=== PATIENT | female | born 1935 | race African-American/Black ===

== ENCOUNTER → 2016-10-06 | Day surgery (SDC) | payer OTHER ==
[~2016-10-06] MED LIST: ASPI-630 PO; CARV12.5 PO; HYDROmorphone 2 MG/ML VIAL IV PRN; IV RINGERS,LACTATED 1000ML 1,000 ML IV SCH; LIDOCAINE 1% 1 ML SYRINGE. ID PRN; LISI10TA2 PO; MORPHINE SULFATE 2 MG/ML DISP.SYRIN. IV PRN; ONDANSETRON PF 4 MG/2 ML VIAL. IV PRN; PROCHLORPERAZINE 10 MG/2 ML VIAL. IV PRN; PROPOFOL 20 ML IV ONE; SIMV20TA3 PO; fentaNYL PF VIAL 100 MCG/2 ML VIAL IV PRN
--- NOTE | 2016-10-06 10:58 | PDOC1 ---
HISTORY & PHYSICAL H&P Nell Fay [id number] 1935 09/11/2016 10:15 AM 04/26 [place] [employer] [facility], [facility] OUR PATIENTS COME FIRST [address] [place] [address] Ph. [phone] Patient: Nell Fay Date of : 1935 Date: 09/11/2016 10:15 AM Visit Type: Consult This 81 year old female presents for Constipation and H/o colorectal polyp. History of Present Illness: 1. Constipation Severity level mild. The patient describes it as difficulty passing and hard. Denies aggravating symptoms. Denies relieving factors. Pertinent negatives include abdominal pain, black tarry stools, bleeding with bowel movement, bloating, change in appetite, nausea, vomiting and weight loss. 2. H/o colorectal polyp Prior screening: colonoscopy. Risk Factors: h/o colon polyp. Pertinent negatives include abdominal pain, change in bowel habits, change in stool caliber, constipation, decreased appetite, diarrhea, melena, nausea, rectal bleeding, vomiting, weight gain and weight loss. Additional information: No family history of colon cancer, No family history of Crohn's/colitis, No NSAID/ ASA use and Had last colonoscopy between 5 to 10 yrs ago. Has history of colon polyp. INTAKE COMMENTS: Intake Comments: Nurse Note: the pt is here today to schedule a colonoscopy for a h/o colon polyps, the pt states that it has been awhile since her last one was done. The pt states that she does have ocassional constipation and gas. PROBLEM LIST: Problem Description Onset Date Chronic Notes Hypertension 09/11/2016 Y PAST MEDICAL/SURGICAL HISTORY (Detailed) Disease/disorder Onset Date Management Date Comments Biventricular ICD impant Anemia COPD Glaucoma hyperlipidemia Hypertension Osteoarthritis Medications (Active): Started Medication Directions Instruction Stopped Aspir-81 81 mg tablet,delayed release take 1 tablet by oral route every day Coreg 12.5 mg tablet take 1 tablet by oral route 2 times every day with food Lasix 40 mg tablet take 1 tablet by oral route every day lisinopril 10 mg tablet take 1 tablet by oral route every day simvastatin 20 mg tablet take 1 tablet by oral route every day in the evening Vitamin B-12 1,000 mcg/mL injection solution inject 0.1 milliliter by intramuscular route every month Vitamin D2 50,000 unit capsule take 1 capsule by oral route every day Allergies: Ingredient Reaction Medication Name Comment NO KNOWN ALLERGIES REVIEW OF SYSTEMS System Neg/Pos Details Constitutional Negative Chills, fever, malaise, weight gain and weight loss. ENMT Negative Sore throat. Eyes Negative Double vision. Respiratory Negative Dyspnea and wheezing. Cardio Negative Chest pain and irregular heartbeat/palpitations. GI Positive See HPI. GI Negative Abdominal pain, black tarry stools, bleeding with bowel movement, bloating, change in appetite, change in bowel habits, change in stool caliber, constipation, decreased appetite, diarrhea, melena, nausea, see HPI, rectal bleeding and vomiting. Negative Dysuria and hematuria. Endocrine Negative Cold intolerance and heat intolerance. Psych Negative Anxiety. Integumentary Negative Hives and rash. MS Negative Joint pain. Evan/Lymph Negative Easy bleeding and easy bruising. Allergic/Immuno Negative Food allergies. VITAL SIGNS Time BP mm/Hg Pulse /min Resp /min Temp F Ht ft Ht in Ht cm Wt lb Wt kg BMI kg/ m2 BSA m2 O2 Sat% 10:36 AM 136/84 89 98.1 5.0 5.00 165.10 146.60 66.497 24.40 99 Time Measured by 10:36 AM Marion York PHYSICAL EXAM: Exam Findings Details Constitutional Normal Well developed. Eyes Normal Conjunctiva - Right: Normal, Left: Normal. Sclera - Right: Normal, Left: Normal. Nasopharynx Normal Lips/teeth/gums - Normal. Neck Exam Normal Inspection - Normal. Thyroid gland - Normal. Respiratory Normal Inspection - Normal. Auscultation - Normal. Cardiovascular Normal Regular rate and rhythm. No murmurs, gallops, or rubs. Vascular Normal Pulses - Carotids: Normal, Femoral: Normal, Dorsalis pedis: Normal. Abdomen Normal Inspection - Normal. Anterior palpation - No guarding. No abdominal tenderness. No hepatic enlargement. No splenic enlargement. No hernia. No Ascites. Skin Normal Inspection - Normal. Extremity Normal No edema. Psychiatric Normal Oriented to time, place, person, and situation. Appropriate mood and effect. Assessment/Plan # Detail Type Description 1. Assessment Slow transit constipation (K59.01). Provider Plan High fiber diet, fiber supplement and stool softener if needed. 2. Assessment History of colon polyps (Z86.010). Patient Plan schedule colonoscopy at [facility] Plan Orders Further diagnostic evaluations ordered today include(s) Colonoscopy to be performed today. She is to schedule a follow-up visit with Jerry Alicea MD upon completion of work-up Electronically signed by: Jerry Alicea MD 09/11/2016 10:42 AM Document generated by: Jerry Alicea 09/11/2016 10:42 AM Alonzo Tong MD, Family Practice; Tiburcio Hoffman MD Internal Medicine; Deepika Muñoz MD, Internal Medicine; Cortes Alicea MD Internal Medicine; Jerry Alicea MD, Gastroenterology; Christian San MD, Rheumatology, S. Kemal Douglas, Physical Medicine/Rehab J. Abdi BOBBYN ------ 10/06/16 Patient seen and examined. No change in H&P. JERRY ALICEA MD Oct 06, 2016 10:58
--- NOTE | 2016-10-06 11:43 | PDOC4 ---
GI OP Report - Dr. Louis Date/Time DATE: 10/06/16 TIME: 11:42 Attending Physician Benja Louis MD Referring Physician Indications Personal history of colonic polyps Pre-Op See the Anesthesia note for documentation of the administered medications Procedures Colonoscopy+polypectomy Findings - One 5 mm polyp in the cecum, removed with a cold snare. Resected and retrieved. - The examination was otherwise normal on direct and retroflexion views. Plan - Discharge patient to home. - Patient has a contact number available for emergencies. The signs and symptoms of potential delayed complications were discussed with the patient. Return to normal activities tomorrow. Written discharge instructions were provided to the patient. - Resume regular diet. - Continue present medications. - Await pathology results. - Repeat colonoscopy in 5 years for surveillance based on pathology results. - Return to my office in 2 weeks. BENJA LOUIS MD Oct 06, 2016 11:43
[2016-10-06 12:01] VITALS: BP 121/58
--- NOTE | 2016-10-07 11:37 | PATHOLOGY ---
PATHOLOGY REPORT * * * * * * * * FINAL DIAGNOSIS: Colon biopsy, cecal polyp: - Tubular adenoma. COMMENT: There is no high grade dysplasia or evidence of malignancy. (JPM:mml; d/t: 10/07/2016) REPORT ELECTRONICALLY SIGNED BY: Aron Jiang M.D. DATE/TIME: 10/07/2016 11:37 * * * * * * * * GROSS PATHOLOGY: Received in formalin labeled "Darryl Ibrahim, cecal polyp," is a segment of wyatt soft tissue measuring 0.4 cm in maximum dimension. The specimen is submitted entirely in cassette A1. (JPM; 10/06/16) INITIAL CPT CODE(S): A; 14697 Professional services performed by [facility] [place] [address] Technical services performed by [facility] at [address] [place] [address] [address] [address]. SPECIMEN(S) RECEIVED: A.Cecal polyp CLINICAL HISTORY: History of colon polyps PATIENT: DARRYL IBRAHIM /AGE: 10 1935 (Age: 81) PATIENT #: [id number] ALT CASE #: SPECIMEN COLLECTION DATE: 10/06/2016 SPECIMEN RECEIVED DATE: 10/06/2016 [facility] - [address] [place] [address] - PHONE: [phone] * * * END OF REPORT * * *
== END | disposition home or self-care (01) ==
LOC: ENDOS 09:32
PROVIDERS: ATTEND Internal Medicine Gastroenterology
DX: Z09 Encounter for follow-up examination after completed treatment for conditions other than malignant neoplasm (principal); Z87.19 Personal history of other diseases of the digestive system; D12.0 Benign neoplasm of cecum; J44.9 Chronic obstructive pulmonary disease, unspecified; E78.00 Pure hypercholesterolemia, unspecified; I10 Essential (primary) hypertension; M19.90 Unspecified osteoarthritis, unspecified site; D64.9 Anemia, unspecified; H40.9 Unspecified glaucoma
CPT/HCPCS: 45385; 88305; J2704

== ENCOUNTER → 2016-10-22 | Outpatient (CLI) | payer OTHER ==
[~2016-10-22] MED LIST changes: -HYDROmorphone 2 MG/ML VIAL IV PRN; -IV RINGERS,LACTATED 1000ML 1,000 ML IV SCH; -LIDOCAINE 1% 1 ML SYRINGE. ID PRN; -MORPHINE SULFATE 2 MG/ML DISP.SYRIN. IV PRN; -ONDANSETRON PF 4 MG/2 ML VIAL. IV PRN; -PROCHLORPERAZINE 10 MG/2 ML VIAL. IV PRN; -PROPOFOL 20 ML IV ONE; -fentaNYL PF VIAL 100 MCG/2 ML VIAL IV PRN
--- NOTE | 2016-10-22 13:23 | CARD ---
APPROVED REPORT EXAM: Two-dimensional and M-mode echocardiogram with Doppler and color Doppler. Other Information Quality : GoodHR: 85bpm Rhythm : NSR INDICATION Non ischemic cardiomyopathy 2D DIMENSIONS RVDd3.0 (2.9-3.5cm)Left Atrium(2D)4.4 (1.6-4.0cm) IVSd0.9 (0.7-1.1cm)Aortic Root(2D)2.6 (2.0-3.7cm) LVDd6.7 (3.9-5.9cm)LVOT Diameter2.1 (1.8-2.4cm) PWd1.2 (0.7-1.1cm)LVDs5.8 (2.5-4.0cm) FS (%) 13.5 %SV65.0 ml LVEF(%)28.2 (>50%) Aortic Valve AoV Peak Demetri.101.1cm/sAoV VTI19.0cm AO Peak GR.4.1mmHgLVOT Peak Demetri.77.1cm/s AO Mean GR.2mmHgAVA (VMAX)2.59cm2 Mitral Valve MV E Qgeeogmk32.9cm/sMV E Peak Gr.4mmHg MV DECEL [id number] A Iobvlpex31.6cm/s MV E Mean Gr.2mmHgE/A Ratio1.0 MV A Zevlixfn34hq Pulmonary Valve PV Peak Xobkhhox62.8cm/s Tricuspid Valve TR P. Brsnndra604zh/sTR Peak Gr.55mmHg Pulmonary Vein S1 Wefkoqcy05.7cm/sD2 Hmnqifax97.5cm/s PVa qjylznby86bdxe LEFT VENTRICLE The Left Ventricle is moderately dilated. There is mild concentric left ventricular hypertrophy. Left ventricle systolic function is severely impaired. The Ejection Fraction is 15%. There is moderate hy pokinesis in the basal and mid anteroseptal and anterior hernandez. All other left ventricular hernandez are severely hypokinetic to akinetic. Transmitral Doppler flow pattern is Grade I-abnormal relaxation pat tern. No left ventricle thrombus noted on this study. There is no ventricular septal defect visualize d. There is no left ventricular aneurysm. RIGHT VENTRICLE The right ventricle is mildly dilated. There is normal right ventricular wall thickness. The right ve ntricular systolic function is normal. There is a pacemaker/ICD lead noted. ATRIA The left atrium is severely dilated. The right atrium is mildly dilated. The interatrial septum is in tact with no evidence for an atrial septal defect or patent foramen ovale as noted on 2-D or Doppler imaging. AORTIC VALVE The aortic valve is mildly thickened. The aortic valve is trileaflet. Doppler and Color Flow revealed trace aortic regurgitation. There is no significant aortic valvular stenosis. MITRAL VALVE The mitral valve leaflets are mildly thickened. There is no evidence of mitral valve prolapse. There is no mitral valve stenosis. Doppler and Color Flow revealed mild mitral regurgitation. TRICUSPID VALVE Doppler and Color Flow revealed moderate tricuspid regurgitation. The pulmonary artery systolic press ure is estimated at 58 mmHg. There is moderate pulmonary hypertension. PULMONIC VALVE Doppler and Color Flow revealed mild pulmonic valvular regurgitation. There is no pulmonic valvular s tenosis. GREAT VESSELS The aortic root is normal in size. The ascending aorta is normal in size. The IVC is normal in size a nd collapses >50% with inspiration. PERICARDIAL EFFUSION There is no evidence of significant pericardial effusion. Critical Notification Critical Value: No <Conclusion> Left ventricle systolic function is severely impaired. The Ejection Fraction is 15%. There is moderate hypokinesis in the basal and mid anteroseptal and anterior hernnadez. All other left ve ntricular hernandez are severely hypokinetic to akinetic. Doppler and Color Flow revealed moderate tricuspid regurgitation. The pulmonary artery systolic press ure is estimated at 58 mmHg. There is moderate pulmonary hypertension. There is a pacemaker/ICD lead noted.
== END | disposition home or self-care (01) ==
LOC: ECHO 10-06 09:14
PROVIDERS: ATTEND Internal Medicine Cardiovascular Disease
DX: I08.3 Combined rheumatic disorders of mitral, aortic and tricuspid valves (principal)
CPT/HCPCS: 93306

== ENCOUNTER → 2017-12-22 | Outpatient (CLI) | payer MEDICARE ==
[2016-12-31 15:10] VITALS: BP 121/79
[~2017-12-22] MED LIST changes: +AMIO200T4 PO; +FURO20TA3 PO; +MULT1TAB52 PO; +SACU1TAB PO
--- NOTE | 2017-12-22 13:32 | CARD ---
MR#: [id number] Date of Study: 12/22/2017 Ordering Physician: MARIELY RODRÍGUEZ, Referring Physician: MARIELY RODRÍGUEZ, Tech: Cookie Mancilla APPROVED REPORT EXAM: Two-dimensional and M-mode echocardiogram with Doppler and color Doppler. Other Information Quality : GoodHR: 80bpm INDICATION Congestive Heart Failure Pacemaker RISK FACTORS Hypertension 2D DIMENSIONS RVDd2.6 (2.9-3.5cm)Left Atrium(2D)3.7 (1.6-4.0cm) IVSd1.0 (0.7-1.1cm)Aortic Root(2D)3.0 (2.0-3.7cm) LVDd6.2 (3.9-5.9cm)LVOT Diameter2.1 (1.8-2.4cm) PWd1.4 (0.7-1.1cm)LVDs5.5 (2.5-4.0cm) FS (%) 10.4 %SV43.0 ml LVEF(%)22.3 (>50%) Aortic Valve AoV Peak Demetri.94.4cm/sAoV VTI14.5cm AO Peak GR.3.6mmHgLVOT VTI 5.39cm AO Mean GR.2mmHg Mitral Valve MV E Ghfnqpwq61.2cm/sMV DECEL UBSR395vs MV A Kybnyoaw06.4cm/sE/A Ratio2.4 TDI Lateral E' P. V3.40cm/sMedial E' P. V3.50cm/s E/Lateral E'23.9E/Medial E'23.2 Tricuspid Valve TR P. Fukimrbg061xv/sRAP QBAIUFOL4yfOs TR Peak Gr.14kgYjOZAV75dzIz LEFT VENTRICLE The Left Ventricle is mildly dilated. There is normal left ventricular wall thickness. The left ventr icular systolic function is severely impaired. The ejection fraction is estimated at 15%. Akinetic in ferior and posterior hernandez. Tissue Doppler imaging reveals abnormal left ventricular diastolic dysfun ction. RIGHT VENTRICLE The right ventricle is normal size. There is normal right ventricular wall thickness. The right ventr icular systolic function is normal. Pacer wire noted in right atrium and right ventricle. ATRIA The left atrium is borderline dilated. The right atrium size is normal. AORTIC VALVE The aortic valve is calcified but opens well. Doppler and Color Flow revealed no significant aortic r egurgitation. There is no significant aortic valvular stenosis. MITRAL VALVE The mitral valve is thickened but opens well. Mitral annular calcification is mild. There is no janice l valve stenosis. Doppler and Color-flow revealed mild mitral regurgitation. TRICUSPID VALVE The tricuspid valve is normal in structure and function. Doppler and Color Flow revealed moderate tri cuspid regurgitation. There is no tricuspid valve stenosis. PULMONIC VALVE The pulmonary valve is normal in structure and function. Doppler and Color Flow revealed trace pulmon ic valvular regurgitation. GREAT VESSELS The aortic root is normal in size. The IVC is normal in size and collapses >50% with inspiration. PERICARDIAL EFFUSION There is no evidence of significant pericardial effusion. Critical Notification Critical Value: No <Conclusion> The left ventricular systolic function is severely impaired. Akinetic inferior and posterior hernandez. The ejection fraction is estimated at 15%. Pacer wire noted in right atrium and right ventricle. Mild mitral regurgitation. Moderate tricuspid regurgitation. There is no evidence of significant pericardial effusion. Signed by : Mariely Rodríguez, Electronically Approved : 12/22/2017 13:31:24
== END | disposition home or self-care (01) ==
LOC: ECHO 11:10
PROVIDERS: ATTEND Internal Medicine Cardiovascular Disease
DX: I13.0 Hypertensive heart and chronic kidney disease with heart failure and stage 1 through stage 4 chronic kidney disease, or unspecified chronic kidney disease (principal); N18.9 Chronic kidney disease, unspecified; I50.22 Chronic systolic (congestive) heart failure; I08.1 Rheumatic disorders of both mitral and tricuspid valves; E78.00 Pure hypercholesterolemia, unspecified; J44.9 Chronic obstructive pulmonary disease, unspecified; I25.10 Atherosclerotic heart disease of native coronary artery without angina pectoris; M19.90 Unspecified osteoarthritis, unspecified site; Z90.710 Acquired absence of both cervix and uterus; Z95.0 Presence of cardiac pacemaker
CPT/HCPCS: 93306

== ENCOUNTER 2018-06-29 12:35 | Inpatient (IN) | payer MEDICARE ==
[~2018-06-29] VITALS: Ht 152.4 cm; Wt 67.6 kg
[~2018-06-29 12:35] MED LIST changes: +CARV6.2511 PO; +POTA20TA82 PO; +SACU1TAB7 PO
--- NOTE | 2018-06-29 13:48 | RAD ---
EXAM: AP View of the chest DATE: 06/29/2018 1:26 PM INDICATION: SOA COMPARISON: 02/02/2018, 01/22/2018 FINDINGS: Moderate cardiomegaly. Aorta is tortuous. Cardiac generator pack obscures a portion of the left chest with leads in stable position. Mediastinal and hilar contours are stable. There are now new bilateral perihilar and lung base opacities in a background of mild interstitial prominence with small right pleural effusion. No pneumothorax. Glenohumeral joint degenerative changes are partially profiled. IMPRESSION: Consolation of findings including parenchymal opacities, cardiomegaly and small right pleural effusion may be seen with pulmonary edema. However multifocal pneumonia may have similar appearance. Electronically signed by: Chaitanya Andres MD (06/29/2018 1:45 PM) [facility]
[2018-06-29 13:52] LABS: BILIRUBIN,URINE NEGATIVE (NEG); CLARITY,URINE CLOUDY; COLOR,URINE AMBER; NITRITE,URINE NEGATIVE (NEG); PH,URINE 5.5; PROTEIN,URINE 30 mg/dL (NEG-TRACE)
[2018-06-29 14:10] LABS: BACTERIA,URINE 0 /HPF (0-FEW); HYALINE CASTS, URINE FEW /HPF; RBC,URINE 0 /HPF (0-2); SQUAMOUS EPITHELIAL CELL,UR OCC /LPF; WBC,URINE OCC /HPF (0-4)
[2018-06-29 14:11] LABS: BASO % 1 % (0-3); EOS % 1 % (0-3); HEMATOCRIT 46.7 % (36.0-47.0); HEMOGLOBIN 14.9 g/dL (12.0-15.5); LYMPH # 0.5 x10^3/uL (1.0-4.8); LYMPH % 10 % (24-48); MEAN CORPUSCULAR HEMOGLOBIN 28 pg (25-35); MEAN CORPUSCULAR HGB CONC 32 g/dL (31-37); MEAN CORPUSCULAR VOLUME 88 fL (79-100); MONO # 0.6 x10^3/uL (0.0-1.1); MONO % 11 % (0-9); NEUT # 4.3 x10^3uL (1.8-7.7); NEUT % 78 % (31-73); PLATELET COUNT 113 x10^3/uL (140-400); RED BLOOD COUNT 5.33 x10^6/uL (3.50-5.40); WHITE BLOOD COUNT 5.5 x10^3/uL (4.0-11.0)
[2018-06-29 14:25] LABS: CREATININE 2.2 mg/dL (0.6-1.0); GFR 25.7
[2018-06-29 14:30] LABS: ALBUMIN 3.3 g/dL (3.4-5.0); ALBUMIN/GLOBULIN RATIO 1.1 (1.0-1.7); TOTAL PROTEIN 6.4 g/dL (6.4-8.2)
[2018-06-29 14:37] LABS: CREATINE KINASE 71 U/L (26-192)
--- NOTE | 2018-06-29 15:04 | EKG ---
[facility] [address] [place] [address] Test Date: 2018-06-29 Test Time: 13:20:25 Pat Name: DARRYL IBRAHIM Department: Room: Gender: F Starch Dumper: : 1935 Requested By: ASHIA DURAN Order Number: [id number] Reading MD: Carlton Toussaint MD Measurements Intervals [place] Rate: 91 P: GA: QRS: -114 QRSD: 214 T: 150 QT: 420 QTc: 519 Interpretive Statements V-PACED Electronically Signed On 06-30-2018 11:10:07 FRAME NAILER by Carlton Toussaint MD
--- NOTE | 2018-06-29 15:07 | PHYS DOC ---
Past Medical History Past Medical History: CHF, High Cholesterol, Hypertension, Renal Disease Additional Past Medical Histor: Enlarged heart with low EF Past Surgical History: Pacemaker Alcohol Use: None Drug Use: None Adult General Chief Complaint Chief Complaint: SHORTNESS OF BREATH HPI HPI Patient is a 83 year old female presented ER today for evaluation of trouble breathing, nonproductive cough. Patient has had trouble breathing for several weeks, the last 3 days her symptoms get worse. Patient had productive cough with clear sputum. Patient also complaint of bilateral lower EXTREMITIES swelling. She did complain of right-sided chest pain. She denies any fever. She had exertional dyspnea. Review of Systems Review of Systems Constitutional: Denies fever or chills [] Eyes: Denies change in visual acuity, redness, or eye pain [] HENT: Denies nasal congestion or sore throat [] Respiratory: Positive for cough and shortness of breath [] Cardiovascular: No additional information not addressed in HPI [] GI: Denies abdominal pain, nausea, vomiting, bloody stools or diarrhea [] : Denies dysuria or hematuria [] Musculoskeletal: Denies back pain or joint pain. POSITIVE FOR LEGS SWELLING. Integument: Denies rash or skin lesions [] Neurologic: Denies headache, focal weakness or sensory changes [] Endocrine: Denies polyuria or polydipsia [] All other systems were reviewed and found to be within normal limits, except as documented in this note. Current Medications Current Medications Current Medications Medications (Trade) Dose Ordered Sig/Abimael Start Time Stop Time Status Last Admin Dose Admin Acetaminophen/ Hydrocodone Bitart (Lortab 5/325) 1 tab 1X ONCE 06/29/18 15:15 06/29/18 15:17 DC 06/29/18 15:31 1 TAB Azithromycin (Zithromax) 250 mg STK-MED ONCE 06/29/18 15:25 06/29/18 15:26 DC Ceftriaxone Sodium (Rocephin) 1 gm 1X ONCE 06/29/18 15:15 06/29/18 15:17 DC 06/29/18 15:33 1 GM Allergies Allergies Allergies Coded Allergies Type Severity Reaction Last Updated Verified No Known Drug Allergies 10/06/16 No Physical Exam Physical Exam Constitutional: Well developed, well nourished, no acute distress, non-toxic appearance. [] HENT: Normocephalic, atraumatic, bilateral external ears normal, oropharynx moist, no oral exudates, nose normal. [] Eyes: PERRLA, EOMI, conjunctiva normal, no discharge. [] Neck: Normal range of motion, no tenderness, supple, no stridor. [] Cardiovascular:Heart rate regular rhythm, no murmur [] Lungs & Thorax: crackles at R LUNG BASE, RALES THROUGHOUT. Abdomen: Bowel sounds normal, soft, no tenderness, no masses, no pulsatile masses. [] Skin: Warm, dry, no erythema, no rash. [] Back: No tenderness, no CVA tenderness. [] Extremities: No tenderness, no cyanosis, no clubbing, ROM intact. SEVERE BILATERAL LOWER EXTREMITIES EDEMA, 4 PLUS. Neurologic: Alert and oriented X 3, normal motor function, normal sensory function, no focal deficits noted. [] Psychologic: Affect normal, judgement normal, mood normal. [] Current Patient Data Vital Signs Vital Signs Date Time Temp Pulse Resp B/P (MAP) Pulse Ox O2 Delivery O2 Flow Rate FiO2 06/29/18 15:04 64 24 115/69 (84) 97 Room Air 06/29/18 12:40 97.7 97.7 Lab Values Laboratory Tests Test 06/29/18 13:40 06/29/18 13:50 06/29/18 14:50 Urine Color Lily Urine Clarity Cloudy Urine pH 5.5 Urine Specific [place] 1.015 Urine Protein 30 mg/dL (NEG-TRACE) Urine Glucose (UA) Negative mg/dL (NEG) Urine Ketones (Stick) Negative mg/dL (NEG) Urine Blood Negative (NEG) Urine Nitrite Negative (NEG) Urine Bilirubin Negative (NEG) Urine Urobilinogen Dipstick 1.0 mg/dL (0.2 mg/dL) Urine Leukocyte Esterase Trace (NEG) Urine RBC 0 /HPF (0-2) Urine WBC Occ /HPF (0-4) Urine Squamous Epithelial Cells Occ /LPF Urine Bacteria 0 /HPF (0-FEW) Urine Hyaline Casts Few /HPF White Blood Count 5.5 x10^3/uL (4.0-11.0) Red Blood Count 5.33 x10^6/uL (3.50-5.40) Hemoglobin 14.9 g/dL (12.0-15.5) Hematocrit 46.7 % (36.0-47.0) Mean Corpuscular Volume 88 fL (79-100) Mean Corpuscular Hemoglobin 28 pg (25-35) Mean Corpuscular Hemoglobin Concent 32 g/dL (31-37) Red Cell Distribution Width 17.0 % (11.5-14.5) H Platelet Count 113 x10^3/uL (140-400) L Neutrophils (%) (Auto) 78 % (31-73) H Lymphocytes (%) (Auto) 10 % (24-48) L Monocytes (%) (Auto) 11 % (0-9) H Eosinophils (%) (Auto) 1 % (0-3) Basophils (%) (Auto) 1 % (0-3) Neutrophils # (Auto) 4.3 x10^3uL (1.8-7.7) Lymphocytes # (Auto) 0.5 x10^3/uL (1.0-4.8) L Monocytes # (Auto) 0.6 x10^3/uL (0.0-1.1) Eosinophils # (Auto) 0.0 x10^3/uL (0.0-0.7) Basophils # (Auto) 0.0 x10^3/uL (0.0-0.2) Sodium Level 143 mmol/L (136-145) Potassium Level 4.0 mmol/L (3.5-5.1) Chloride Level 102 mmol/L (98-107) Carbon Dioxide Level 28 mmol/L (21-32) Anion Gap 13 (6-14) Blood Urea Nitrogen 56 mg/dL (7-20) H Creatinine 2.2 mg/dL (0.6-1.0) H Estimated GFR (Cockcroft-Gault) 25.7 BUN/Creatinine Ratio 25 (6-20) H Glucose Level 164 mg/dL (70-99) H Calcium Level 10.0 mg/dL (8.5-10.1) Total Bilirubin 2.0 mg/dL (0.2-1.0) H Aspartate Amino Transferase (AST) 31 U/L (15-37) Alanine Aminotransferase (ALT) 26 U/L (14-59) Alkaline Phosphatase 113 U/L (46-116) Creatine Kinase 71 U/L (26-192) Creatine Kinase MB (Mass) 1.0 ng/mL (0.0-3.6) Creatine Kinase MB Relative Index % (0-4) Troponin I Quantitative 0.184 ng/mL (0.000-0.055) GM-Cta-B-Type Natriuretic Peptide 07031 pg/mL (0-449) H Total Protein 6.4 g/dL (6.4-8.2) Albumin 3.3 g/dL (3.4-5.0) L Albumin/Globulin Ratio 1.1 (1.0-1.7) Lactic Acid Level 1.7 mmol/L (0.4-2.0) Laboratory Tests 06/29/18 13:50 Laboratory Tests 06/29/18 13:50 EKG EKG EKG was read by this physician at 1345, rate of 73, PACED, RBBB Radiology/Procedures Radiology/Procedures [][facility] [address] [place] [address] IMAGING REPORT Signed PATIENT: DARRYL IBRAHIM ACCOUNT: [id number] : 1935 LOCATION: ER AGE: 83 SEX: F EXAM STATUS: REG ER ORD. PHYSICIAN: ASHIA DURAN DO REASON: soa PROCEDURE: PORTABLE CHEST 1V EXAM: AP View of the chest DATE: 06/29/2018 1:26 PM INDICATION: SOA COMPARISON: 02/02/2018, 01/22/2018 FINDINGS: Moderate cardiomegaly. Aorta is tortuous. Cardiac generator pack obscures a portion of the left chest with leads in stable position. Mediastinal and hilar contours are stable. There are now new bilateral perihilar and lung base opacities in a background of mild interstitial prominence with small right pleural effusion. No pneumothorax. Glenohumeral joint degenerative changes are partially profiled. IMPRESSION: Consolation of findings including parenchymal opacities, cardiomegaly and small right pleural effusion may be seen with pulmonary edema. However multifocal pneumonia may have similar appearance. Electronically signed by: Chaitanya Harrison MD (06/29/2018 1:45 PM) [id number] DICTATED and SIGNED BY: CHAITANYA HARRISON MD DATE: 06/29/18 1652 Course & Med Decision Making Course & Med Decision Making Pertinent Labs and Imaging studies reviewed. (See chart for details) [] Dragon Disclaimer Dragon Disclaimer This electronic medical record was generated, in whole or in part, using a voice recognition dictation system. Departure Departure Impression: Primary Impression: Acute pulmonary edema Additional Impressions: CHF (congestive heart failure) CAP (community acquired pneumonia) Disposition: ADMITTED INPATIENT Admitting Physician: Other (DR. HIPOLITO PHILLIPS) Condition: STABLE Referrals: LBAKE RAMIRES MD (PCP) Problem Qualifiers ASHIA DURAN DO Jun 29, 2018 15:07
[2018-06-29] MEDS ORDERED: cefTRIAXone IV Push 1 GM VIAL. IVP ONE (15:15)
[2018-06-29] MEDS ORDERED: AZITHROMYCIN 250 MG TABLET. PO ONE (15:15)
[2018-06-29] MEDS ORDERED: HYDROcodone/APAP 5/325MG 1 TAB TABLET PO ONE (15:15)
[2018-06-29] MEDS ORDERED: AZITHROMYCIN 250 MG TABLET. ONE (15:25)
--- NOTE | 2018-06-29 15:27 | PDOC1 ---
History and Physical Date of Admission Date of Admission DATE: 06/29/18 TIME: 15:21 Identification/Chief Complaint Chief Complaint Shortness of breath Source Source: Chart review, Patient History of Present Illness History of Present Illness Ms. Fay is a 82 old F w/ PMHx HTN, CAD, systolic CHF EF 15% s/p BiV-AICD who came for weight gain 5 pounds and bl leg edema, sob with a worsening cough since 3 days ago. She also notes right sided chest pain on deep inspiration that is new. She has been compliant with diet and fluid intake, has no recent sick contacts and is UTD on vaccinations. No myalgias or URTI symptoms. Cr higher to 2.2 from 1.8 baseline and she has a highly elevated BNP and mildly elevated troponin I as well as bilirubin of 2. On further ROS she has not had a BM yet today, normally takes metamucil daily for this. Past Medical History Cardiovascular: CHF, HTN, Hyperlipidemia, Pulmonary hypertension, Other Pulmonary: COPD GI: No pertinent hx Heme/Onc: Anemia NOS Hepatobiliary: No pertinent hx Psych: No pertinent hx Musculoskeletal: Osteoarthritis Rheumatologic: No pertinent hx Infectious disease: No pertinent hx Renal/: No pertinent hx Endocrine: Hyperparathyroidism, Osteoporosis Past Surgical History Past Surgical History: Pacemaker, Hysterectomy Family History Family History: Cancer, Coronary Artery Disease Social History Smoke: No ALCOHOL: none Drugs: None Current Medications Current Medications Current Medications Ceftriaxone Sodium (Rocephin) 1 gm 1X ONCE IVP ; Start 06/29/18 at 15:15; Stop 06/29/18 at 15:17; Status DC Azithromycin (Zithromax) 500 mg 1X ONCE PO ; Start 06/29/18 at 15:15; Stop at 15:17; Status DC Acetaminophen/ Hydrocodone Bitart (Lortab 5/325) 1 tab 1X ONCE PO ; Start at 15:15; Stop 06/29/18 at 15:17; Status DC Active Scripts Active Amiodarone Hcl 200 Mg Tablet 200 Mg PO DAILY 30 Days Reported Furosemide 20 Mg Tablet 1 Tab PO DAILY Potassium Chloride 20 Meq Tablet.er 20 Meq PO DAILY Carvedilol 6.25 Mg Tablet 1 Tab PO BID Multivitamins (Multivitamin) 1 Each Tablet 1 Each PO Simvastatin 20 Mg Tablet 20 Mg PO HS Aspirin 81 Mg Tab.chew 81 Mg PO Allergies Allergies: Coded Allergies: No Known Drug Allergies (Unverified , 10/06/16) ROS General: YES: Fatigue, Malaise; No: Chills, Night Sweats, Appetite, Other PSYCHOLOGICAL ROS: No: Anxiety, Behavioral Disorder, Concentration difficultie , Decreased libido, Depression, Disorientation, Hallucinations, Hostility, Irritablity, Memory difficulties, Mood Swings, Obsessive thoughts, Physical abuse, Sexual abuse, Sleep disturbances, Suicidal ideation, Other Eyes: No Blurry vision, No Decreased vision, No Double vision, No Dry eyes, No Excessive tearing, No Eye Pain, No Itchy Eyes, No Loss of vision, No Photophobia , No Scotomata, No Uses contacts, No Uses glasses, No Other HEENT: No: Heacaches, Visual Changes, Hearing change, Nasal congestion, Nasal discharge, Oral lesions, Sinus pain, Sore Throat, Epistaxis, Sneezing, Snoring, Tinnitus, Vertigo, Vocal changes, Other ALLERGY AND IMMUNOLOGY: No: Hives, Insect Bite Sensitivity, Itchy/Watery Eyes, Nasal Congestion, Post Nasal Drip, Seasonal Allergies, Other Hematological and Lymphatic: No: Bleeding Problems, Blood Clots, Blood Transfusions, Brusing, Night Sweats, Pallor, Swollen Lymph Nodes, Other ENDOCRINE: No: Breast Changes, Galactorrhea, Hair Pattern Changes, Hot Flashes , Malaise/lethargy, Mood Swings, Palpitations, Polydipsia/polyuria, Skin Changes , Temperature Intolerance, Unexpected Weight Changes, Other Breast: No New/Changing Breast Lumps, No Nipple changes, No Nipple discharge, No Other Respiratory: YES: Cough, Orthopnea, Pleuritic Pain, Shortness of breath, SOB with excertion, Tachypnea; No: Hemoptysis, Sputum Changes, Stridor, Wheezing, Other Cardiovascular: yes Orthopnea, yes Paroxysmal Noc. Dyspnea, yes Edema; No Chest Pain, No Palpitations, No Lt Headedness, No Other Gastrointestinal: Yes Constipation; No Nausea, No Vomiting, No Abdominal Pain, No Diarrhea, No Melena, No Hematochezia, No Other Genitourinary: No Dysuria, No Frequency, No Incontinence, No Hematuria, No Retention, No Discharge, No Urgency, No Pain, No Flank Pain, No Other, No , No , No , No , No , No , No Musculoskeletal: No Gait Disturbance, No Joint Pain, No Joint Stiffness, No Joint Swelling, No Muscle Pain, No Muscular Weakness, No Pain In:, No Swelling In:, No Other Neurological: No Behavorial Changes, No Bowel/Bladder ControlChng, No Confusion , No Dizziness, No Gait Disturbance, No Headaches, No Impaired Coord/balance, No Memory Loss, No Numbness/Tingling, No Seizures, No Speech Problems, No Tremors, No Visual Changes, No Weakness, No Other Skin: No Dry Skin, No Eczema, No Hair Changes, No Lumps, No Mole Changes, No Mottling, No Nail Changes, No Pruritus, No Rash, No Skin Lesion Changes, No Other, No Acne Physical Exam General: Alert, Oriented X3, Cooperative, No acute distress HEENT: Atraumatic, PERRLA, EOMI, Mucous membr. moist/pink Lungs: Other (Right basilar crackles) Heart: S1S2, RRR, no gallops, no murmurs Abdomen: Normal bowel sounds, Soft, No tenderness, No hepatosplenomegaly, No masses Rectal Exam: not examined Extremities: No clubbing, No cyanosis, Normal pulses, No tenderness/swelling, Other (3+ pitting edema bilaterally R>L) Skin: No rashes, No breakdown, No significant lesion Neuro: Normal gait, Normal speech, Strength at 5/5 X4 ext, Normal tone, Sensation intact, Cranial nerves 3-12 NL, Reflexes 2+ Psych/Mental Status: Mental status NL, Mood NL Vitals Vitals Vital Signs Date Time Temp Pulse Resp B/P (MAP) Pulse Ox O2 Delivery O2 Flow Rate FiO2 06/29/18 15:04 64 24 115/69 (84) 97 Room Air 06/29/18 12:40 97.7 97.7 Labs Labs Laboratory Tests Test 06/29/18 13:40 06/29/18 13:50 Urine Color Lily Urine Clarity Cloudy Urine pH 5.5 Urine Specific [place] 1.015 Urine Protein 30 mg/dL (NEG-TRACE) Urine Glucose (UA) Negative mg/dL (NEG) Urine Ketones (Stick) Negative mg/dL (NEG) Urine Blood Negative (NEG) Urine Nitrite Negative (NEG) Urine Bilirubin Negative (NEG) Urine Urobilinogen Dipstick 1.0 mg/dL (0.2 mg/dL) Urine Leukocyte Esterase Trace (NEG) Urine RBC 0 /HPF (0-2) Urine WBC Occ /HPF (0-4) Urine Squamous Epithelial Cells Occ /LPF Urine Bacteria 0 /HPF (0-FEW) Urine Hyaline Casts Few /HPF White Blood Count 5.5 x10^3/uL (4.0-11.0) Red Blood Count 5.33 x10^6/uL (3.50-5.40) Hemoglobin 14.9 g/dL (12.0-15.5) Hematocrit 46.7 % (36.0-47.0) Mean Corpuscular Volume 88 fL (79-100) Mean Corpuscular Hemoglobin 28 pg (25-35) Mean Corpuscular Hemoglobin Concent 32 g/dL (31-37) Red Cell Distribution Width 17.0 % (11.5-14.5) Platelet Count 113 x10^3/uL (140-400) Neutrophils (%) (Auto) 78 % (31-73) Lymphocytes (%) (Auto) 10 % (24-48) Monocytes (%) (Auto) 11 % (0-9) Eosinophils (%) (Auto) 1 % (0-3) Basophils (%) (Auto) 1 % (0-3) Neutrophils # (Auto) 4.3 x10^3uL (1.8-7.7) Lymphocytes # (Auto) 0.5 x10^3/uL (1.0-4.8) Monocytes # (Auto) 0.6 x10^3/uL (0.0-1.1) Eosinophils # (Auto) 0.0 x10^3/uL (0.0-0.7) Basophils # (Auto) 0.0 x10^3/uL (0.0-0.2) Sodium Level 143 mmol/L (136-145) Potassium Level 4.0 mmol/L (3.5-5.1) Chloride Level 102 mmol/L (98-107) Carbon Dioxide Level 28 mmol/L (21-32) Anion Gap 13 (6-14) Blood Urea Nitrogen 56 mg/dL (7-20) Creatinine 2.2 mg/dL (0.6-1.0) Estimated GFR (Cockcroft-Gault) 25.7 BUN/Creatinine Ratio 25 (6-20) Glucose Level 164 mg/dL (70-99) Calcium Level 10.0 mg/dL (8.5-10.1) Total Bilirubin 2.0 mg/dL (0.2-1.0) Aspartate Amino Transf (AST/SGOT) 31 U/L (15-37) Alanine Aminotransferase (ALT/SGPT) 26 U/L (14-59) Alkaline Phosphatase 113 U/L (46-116) Creatine Kinase 71 U/L (26-192) Creatine Kinase MB (Mass) 1.0 ng/mL (0.0-3.6) Creatine Kinase MB Relative Index % (0-4) Troponin I Quantitative 0.184 ng/mL (0.000-0.055) MN-Ynu-R-Type Natriuretic Peptide 37035 pg/mL (0-449) Total Protein 6.4 g/dL (6.4-8.2) Albumin 3.3 g/dL (3.4-5.0) Albumin/Globulin Ratio 1.1 (1.0-1.7) Laboratory Tests Test 06/29/18 13:40 06/29/18 13:50 Urine Color Lily Urine Clarity Cloudy Urine pH 5.5 Urine Specific [place] 1.015 Urine Protein 30 mg/dL (NEG-TRACE) Urine Glucose (UA) Negative mg/dL (NEG) Urine Ketones (Stick) Negative mg/dL (NEG) Urine Blood Negative (NEG) Urine Nitrite Negative (NEG) Urine Bilirubin Negative (NEG) Urine Urobilinogen Dipstick 1.0 mg/dL (0.2 mg/dL) Urine Leukocyte Esterase Trace (NEG) Urine RBC 0 /HPF (0-2) Urine WBC Occ /HPF (0-4) Urine Squamous Epithelial Cells Occ /LPF Urine Bacteria 0 /HPF (0-FEW) Urine Hyaline Casts Few /HPF White Blood Count 5.5 x10^3/uL (4.0-11.0) Red Blood Count 5.33 x10^6/uL (3.50-5.40) Hemoglobin 14.9 g/dL (12.0-15.5) Hematocrit 46.7 % (36.0-47.0) Mean Corpuscular Volume 88 fL (79-100) Mean Corpuscular Hemoglobin 28 pg (25-35) Mean Corpuscular Hemoglobin Concent 32 g/dL (31-37) Red Cell Distribution Width 17.0 % (11.5-14.5) Platelet Count 113 x10^3/uL (140-400) Neutrophils (%) (Auto) 78 % (31-73) Lymphocytes (%) (Auto) 10 % (24-48) Monocytes (%) (Auto) 11 % (0-9) Eosinophils (%) (Auto) 1 % (0-3) Basophils (%) (Auto) 1 % (0-3) Neutrophils # (Auto) 4.3 x10^3uL (1.8-7.7) Lymphocytes # (Auto) 0.5 x10^3/uL (1.0-4.8) Monocytes # (Auto) 0.6 x10^3/uL (0.0-1.1) Eosinophils # (Auto) 0.0 x10^3/uL (0.0-0.7) Basophils # (Auto) 0.0 x10^3/uL (0.0-0.2) Sodium Level 143 mmol/L (136-145) Potassium Level 4.0 mmol/L (3.5-5.1) Chloride Level 102 mmol/L (98-107) Carbon Dioxide Level 28 mmol/L (21-32) Anion Gap 13 (6-14) Blood Urea Nitrogen 56 mg/dL (7-20) Creatinine 2.2 mg/dL (0.6-1.0) Estimated GFR (Cockcroft-Gault) 25.7 BUN/Creatinine Ratio 25 (6-20) Glucose Level 164 mg/dL (70-99) Calcium Level 10.0 mg/dL (8.5-10.1) Total Bilirubin 2.0 mg/dL (0.2-1.0) Aspartate Amino Transf (AST/SGOT) 31 U/L (15-37) Alanine Aminotransferase (ALT/SGPT) 26 U/L (14-59) Alkaline Phosphatase 113 U/L (46-116) Creatine Kinase 71 U/L (26-192) Creatine Kinase MB (Mass) 1.0 ng/mL (0.0-3.6) Creatine Kinase MB Relative Index % (0-4) Troponin I Quantitative 0.184 ng/mL (0.000-0.055) US-Zfa-W-Type Natriuretic Peptide 09852 pg/mL (0-449) Total Protein 6.4 g/dL (6.4-8.2) Albumin 3.3 g/dL (3.4-5.0) Albumin/Globulin Ratio 1.1 (1.0-1.7) Images Images CXR - Consolation of findings including parenchymal opacities, cardiomegaly and small right pleural effusion may be seen with pulmonary edema. However multifocal pneumonia may have similar appearance. VTE Prophylaxis Ordered VTE Prophylaxis Devices: Yes VTE Pharmacological Prophylaxi: Yes Assessment/Plan Assessment/Plan A/P: Acute on chronic systolic and diastolic heart failure in the setting of ischemic cardiomyopathy. EF 15% - likely set off by pneumonia. Check procalcitonin. IV lasix 40mg BID. consult cardiology, sees Dr. Dorman outpatient Right pleural effusion - consult pulm, she may need thoracentesis to tease out CHF vs pneumonia. I feel she has both. Multifocal pneumonia - will cont rocephin + doxycycline. Consult pulmonology History of ventricular tachycardia/ventricular fibrillation status post Bi-V implantable cardioverter-defibrillator. Constipation - will get on bowel regimen. LAM on CKD3, vasomotor and possible component of cardiorenal syndrome in her. Nephrology to see her. She just established outpatient, she thinks with Dr. White copd - only slight wheezes, will give prn nebs. Consult pulm for pleural effusion FEN - Cardiac diet. 2L fluid restriction PPX - heparin BID FULL CODE Inpatient for CHF exacerbation likely set off by a community acquired pneumonia , will be inpatient at least 2 midnights. HIPOLITO PHILLIPS MD Jun 29, 2018 15:27
--- NOTE | 2018-06-29 16:14 | EKG ---
[facility] [address] [place] [id number] Test Date: 2018-06-29 Test Time: 13:45:47 Pat Name: DARRYL IBRAHIM Department: Room: Gender: F Gold Marker: : 1935 Requested By: ASHIA DURAN Order Number: [id number] Reading MD: Carlton Toussaint MD Measurements Intervals [place] Rate: 73 P: 90 DE: 142 QRS: -86 QRSD: 206 T: 5 QT: 468 QTc: 520 Interpretive Statements V-PACED Electronically Signed On 06-30-2018 11:10:47 BILINGUAL INTERPRETER by Carlton Toussaint MD
[2018-06-29] MEDS ORDERED: ONDANSETRON PF 4 MG/2 ML VIAL. IV PRN (16:15)
[2018-06-29] MEDS ORDERED: LACTULOSE 20 GM/30 ML SOLUTION. PO PRN (16:15)
[2018-06-29] MEDS ORDERED: ACETAMINOPHEN 325 MG TABLET. PO PRN (16:15)
[2018-06-29] MEDS ORDERED: CYANOCOBALAMIN (VITAMIN B-12) 1,000 MCG/ML VIAL IM ONE (16:45)
[2018-06-29] MEDS: CARVEDILOL 6.25 MG TABLET. PO SCH (17:00)
[2018-06-29 19:00] VITALS: BP 97/60
[2018-06-29] MEDS: SENNOSIDES/DOCUSATE 8.6/50MG TABLET. PO SCH (21:00)
[2018-06-29] MEDS: PSYLLIUM HUSK (SUGAR FREE) 1 PKT PACKET PO SCH (21:00)
[2018-06-29 21:47] LABS: PLT ESTIMATE DECREASED (ADEQUATE)
[2018-06-29 21:48] LABS: BIZZARE CELLS OCC; OVALOCYTES OCC; SCHISTOCYTES OCC
[2018-06-29] MEDS: FUROSEMIDE 40 MG/4 ML VIAL. IVP SCH (22:06)
[2018-06-29] MEDS: SIMVASTATIN 20 MG TABLET PO SCH (22:06)
[2018-06-29] MEDS: DOXYCYCLINE HYCLATE 100 MG in IV DEXTROSE 5% 100ML 100 ML IV SCH (22:07)
[2018-06-29] MEDS: HEPARIN for SUB-Q USE 5,000 UNIT/ML VIAL. SQ SCH (22:13)
[2018-06-29 22:40] VITALS: BP 118/69
[2018-06-30 02:53] VITALS: BP 117/60
[2018-06-30 07:00] VITALS: BP 108/63
[2018-06-30] MEDS: ASPIRIN CHEWABLE 81 MG TABLET. PO SCH (08:55)
[2018-06-30] MEDS: AMIODARONE HCL 200 MG TABLET. PO SCH (08:55)
[2018-06-30] MEDS: SENNOSIDES/DOCUSATE 8.6/50MG TABLET. PO SCH ×2 (08:55→21:13)
[2018-06-30] MEDS: POLYETHYLENE GLYCOL 3350 17 GM PACKET. PO SCH (08:56)
[2018-06-30] MEDS: CARVEDILOL 6.25 MG TABLET. PO SCH ×2 (08:56→17:00)
[2018-06-30] MEDS: DOXYCYCLINE HYCLATE 100 MG in IV DEXTROSE 5% 100ML 100 ML IV SCH (08:56)
[2018-06-30] MEDS: FUROSEMIDE 40 MG/4 ML VIAL. IVP SCH ×2 (08:57→15:37)
[2018-06-30] MEDS: PSYLLIUM HUSK (SUGAR FREE) 1 PKT PACKET PO SCH (09:00)
[2018-06-30] MEDS: HEPARIN for SUB-Q USE 5,000 UNIT/ML VIAL. SQ SCH ×2 (09:08→21:17)
[2018-06-30 10:30] LABS: CALCIUM 9.9 mg/dL (8.5-10.1); CREATININE 1.9 mg/dL (0.6-1.0); GFR 30.5; POTASSIUM 3.5 mmol/L (3.5-5.1)
[2018-06-30 10:37] LABS: BASO % 1 % (0-3); EOS # 0.1 x10^3/uL (0.0-0.7); EOS % 1 % (0-3); HEMATOCRIT 45.4 % (36.0-47.0); HEMOGLOBIN 14.5 g/dL (12.0-15.5); LYMPH # 0.6 x10^3/uL (1.0-4.8); LYMPH % 11 % (24-48); MEAN CORPUSCULAR HEMOGLOBIN 28 pg (25-35); MEAN CORPUSCULAR HGB CONC 32 g/dL (31-37); MEAN CORPUSCULAR VOLUME 87 fL (79-100); MONO # 0.5 x10^3/uL (0.0-1.1); MONO % 10 % (0-9); NEUT # 4.1 x10^3uL (1.8-7.7); NEUT % 77 % (31-73); PLATELET COUNT 122 x10^3/uL (140-400); RED CELL DISTRIBUTION WIDTH 16.6 % (11.5-14.5); WHITE BLOOD COUNT 5.3 x10^3/uL (4.0-11.0)
[2018-06-30 11:00] VITALS: BP 99/60
--- NOTE | 2018-06-30 13:34 | PDOC2 ---
ALEXANDRA JONES GARMENT TURNER 06/30/18 1334: CARDIAC CONSULT DATE OF CONSULT Date of Consult DATE: 06/30/18 TIME: 13:28 REASON FOR CONSULT Reason for Consult: CHF REFERRING PHYSICIAN Referring Physician: Alethea SOURCE Source: Chart review, Patient HISTORY OF PRESENT ILLNESS HISTORY OF PRESENT ILLNESS This is a pleasant 83 yo female admitted for complains of SOA. Reports that she felt wiped out Wednesday. Wednesday she felt more SOA more thatn usual and unable to fit her regular shoes. she then saw her PCP yesterday and noted that she is fluid overloaded. Pt has not been having good sleep lately and her appetite has decreased. she does live alone and has been complaint with her medications. Verbalized that her wt has not changed much. she takes 1 tab of lasix a day. Denies any chest pain or significant palpitations. No recent fever , chills, nausea or vomiting. PAST MEDICAL HISTORY Cardiovascular: CHF, HTN, Other (NICM EF 20%, LBBB, Left SCV thrombosis, varicosities, SVTs; dilated CM) Pulmonary: Asthma, Other (pulmonary HTN) GI: Other (colon polyp) Heme/Onc: Anemia NOS Musculoskeletal: Osteoarthritis Rheumatologic: No pertinent hx ENT: No pertinent hx, Other (glaucoma) Endocrine: Osteoporosis PAST SURGICAL HISTORY Past Surgical History: Pacemaker (BiV ICD ([employer])), Hysterectomy, Other ( lumpectomy) FAMILY HISTORY Family History: Coronary Artery Disease SOCIAL HISTORY Smoke: No ALCOHOL: none Drugs: None Lives: with Family CURRENT MEDICATIONS CURRENT MEDICATIONS Current Medications Medications (Trade) Dose Ordered Sig/Abimael Route PRN Reason Start Time Stop Time Status Last Admin Dose Admin Ceftriaxone Sodium (Rocephin) 1 gm 1X ONCE IVP 06/29/18 15:15 06/29/18 15:17 DC 06/29/18 15:33 Azithromycin (Zithromax) 500 mg 1X ONCE PO 06/29/18 15:15 06/29/18 15:17 DC 06/29/18 15:30 Acetaminophen/ Hydrocodone Bitart (Lortab 5/325) 1 tab 1X ONCE PO 06/29/18 15:15 06/29/18 15:17 DC 06/29/18 15:31 Amiodarone HCl (Cordarone) 200 mg DAILY PO 06/30/18 09:00 06/30/18 08:55 Aspirin (Children'S Aspirin) 81 mg DAILY PO 06/30/18 09:00 06/30/18 08:55 Carvedilol (Coreg) 6.25 mg BIDWMEALS PO 06/29/18 17:00 06/30/18 08:56 Simvastatin (Zocor) 20 mg HS PO 06/29/18 21:00 06/29/18 22:06 Senna/Docusate Sodium (Senna Plus) 1 tab BID PO 06/29/18 21:00 06/30/18 08:55 Heparin Sodium (Porcine) (Heparin Sodium) 5,000 unit Q12HR SQ 06/29/18 21:00 06/30/18 09:08 Furosemide (Lasix) 40 mg BID92 IVP 06/29/18 17:00 06/30/18 08:57 Doxycycline Hyclate 100 mg/ Dextrose 100 ml @ 50 mls/hr BID IV 06/29/18 17:00 06/30/18 08:56 Polyethylene Glycol (miraLAX PACKET) 17 gm DAILY PO 06/30/18 09:00 06/30/18 08:56 Cyanocobalamin (Vitamin B-12) 1,000 mcg 1X ONCE IM 06/29/18 16:45 06/29/18 16:46 DC 06/30/18 00:25 ALLERGIES ALLERGIES: Coded Allergies: No Known Drug Allergies (Unverified , 10/06/16) ROS Review of System 14 point ROS evaluated with pertinent positives noted per HPI PHYSICAL EXAM General: Alert, Oriented X3, Cooperative, No acute distress HEENT: Atraumatic, Mucous membr. moist/pink Lungs: Other (diminished) Heart: Regular rate, Other (3/6 systolic murmur to LLS border) Abdomen: Soft, No tenderness Extremities: No cyanosis, Other (3+ bilateral LE pitting edema) Skin: No breakdown, No significant lesion Neuro: Normal speech, Sensation intact Psych/Mental Status: Mental status NL, Mood NL MUSCULOSKELETAL: Osteoarthritic changes both hands VITALS VITALS Vital Signs Date Time Temp Pulse Resp B/P (MAP) Pulse Ox O2 Delivery O2 Flow Rate FiO2 06/30/18 11:00 97.4 67 17 99/60 (73) 98 Room Air 97.4 LABS Lab: Laboratory Tests Test 06/29/18 13:40 06/29/18 13:50 06/29/18 14:50 06/30/18 09:48 Urine Color Lily Urine Clarity Cloudy Urine pH 5.5 Urine Specific [place] 1.015 Urine Protein 30 mg/dL (NEG-TRACE) Urine Glucose (UA) Negative mg/dL (NEG) Urine Ketones (Stick) Negative mg/dL (NEG) Urine Blood Negative (NEG) Urine Nitrite Negative (NEG) Urine Bilirubin Negative (NEG) Urine Urobilinogen Dipstick 1.0 mg/dL (0.2 mg/dL) Urine Leukocyte Esterase Trace (NEG) Urine RBC 0 /HPF (0-2) Urine WBC Occ /HPF (0-4) Urine Squamous Epithelial Cells Occ /LPF Urine Bacteria 0 /HPF (0-FEW) Urine Hyaline Casts Few /HPF White Blood Count 5.5 x10^3/uL (4.0-11.0) 5.3 x10^3/uL (4.0-11.0) Red Blood Count 5.33 x10^6/uL (3.50-5.40) 5.20 x10^6/uL (3.50-5.40) Hemoglobin 14.9 g/dL (12.0-15.5) 14.5 g/dL (12.0-15.5) Hematocrit 46.7 % (36.0-47.0) 45.4 % (36.0-47.0) Mean Corpuscular Volume 88 fL (79-100) 87 fL (79-100) Mean Corpuscular Hemoglobin 28 pg (25-35) 28 pg (25-35) Mean Corpuscular Hemoglobin Concent 32 g/dL (31-37) 32 g/dL (31-37) Red Cell Distribution Width 17.0 % (11.5-14.5) 16.6 % (11.5-14.5) Platelet Count 113 x10^3/uL (140-400) 122 x10^3/uL (140-400) Neutrophils (%) (Auto) 78 % (31-73) 77 % (31-73) Lymphocytes (%) (Auto) 10 % (24-48) 11 % (24-48) Monocytes (%) (Auto) 11 % (0-9) 10 % (0-9) Eosinophils (%) (Auto) 1 % (0-3) 1 % (0-3) Basophils (%) (Auto) 1 % (0-3) 1 % (0-3) Neutrophils # (Auto) 4.3 x10^3uL (1.8-7.7) 4.1 x10^3uL (1.8-7.7) Lymphocytes # (Auto) 0.5 x10^3/uL (1.0-4.8) 0.6 x10^3/uL (1.0-4.8) Monocytes # (Auto) 0.6 x10^3/uL (0.0-1.1) 0.5 x10^3/uL (0.0-1.1) Eosinophils # (Auto) 0.0 x10^3/uL (0.0-0.7) 0.1 x10^3/uL (0.0-0.7) Basophils # (Auto) 0.0 x10^3/uL (0.0-0.2) 0.0 x10^3/uL (0.0-0.2) Platelet Estimate Decreased (ADEQUATE) Large Platelets Occ Giant Platelets Present Ovalocytes Occ Schistocytes Occ RBC Morphology Bizarre Forms Occ Sodium Level 143 mmol/L (136-145) 143 mmol/L (136-145) Potassium Level 4.0 mmol/L (3.5-5.1) 3.5 mmol/L (3.5-5.1) Chloride Level 102 mmol/L (98-107) 103 mmol/L (98-107) Carbon Dioxide Level 28 mmol/L (21-32) 28 mmol/L (21-32) Anion Gap 13 (6-14) 12 (6-14) Blood Urea Nitrogen 56 mg/dL (7-20) 51 mg/dL (7-20) Creatinine 2.2 mg/dL (0.6-1.0) 1.9 mg/dL (0.6-1.0) Estimated GFR (Cockcroft-Gault) 25.7 30.5 BUN/Creatinine Ratio 25 (6-20) Glucose Level 164 mg/dL (70-99) 171 mg/dL (70-99) Calcium Level 10.0 mg/dL (8.5-10.1) 9.9 mg/dL (8.5-10.1) Total Bilirubin 2.0 mg/dL (0.2-1.0) Aspartate Amino Transf (AST/SGOT) 31 U/L (15-37) Alanine Aminotransferase (ALT/SGPT) 26 U/L (14-59) Alkaline Phosphatase 113 U/L (46-116) Creatine Kinase 71 U/L (26-192) Creatine Kinase MB (Mass) 1.0 ng/mL (0.0-3.6) Creatine Kinase MB Relative Index % (0-4) Troponin I Quantitative 0.184 ng/mL (0.000-0.055) BD-Jhe-D-Type Natriuretic Peptide 60380 pg/mL (0-449) Total Protein 6.4 g/dL (6.4-8.2) Albumin 3.3 g/dL (3.4-5.0) Albumin/Globulin Ratio 1.1 (1.0-1.7) Lactic Acid Level 1.7 mmol/L (0.4-2.0) ECHOCARDIOGRAM ECHOCARDIOGRAM <Conclusion> The left ventricular systolic function is severely impaired. Akinetic inferior and posterior hernandez. The ejection fraction is estimated at 15%. Pacer wire noted in right atrium and right ventricle. Mild mitral regurgitation. Moderate tricuspid regurgitation. There is no evidence of significant pericardial effusion. DATE: 12/22/17 1331 STRESS TEST STRESS TEST Conclusion 1. Non-diagnostic EKG due to pacing. 2. Fixed inferolateral defect, likely artifact but no active ischemia noted. 3. Severe LV dysfunction. EF 24% 4. Moderate to high risk study for future CV events due to low EF. DATE: 12/30/16 1127 ASSESSMENT/PLAN ASSESSMENT/PLAN 1. Acute on chronic systolic and diastolic heart failur: possibly from inadequate diuretic with severe CM. SOA better 2. LAM on CKD: suspect stage 3 3. elevated troponin: peaked at 0.18, type 2 demand mediated, due to above. 4. NICM/ICM 5. 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). 7. HTN: controlled Recommendations 1. Continue with lasix therapy and moving forward will need BID PO dosing 2. TTE today. Will interrogate device and note any contributing arrhythmias and [place] 3. Continue with secondary prevention 4. Continue amiodarone, ASA, coreg. Unable to place on ACEi or entresto currently due to renal insufficeincy but will consider as an outpt. MARIELY RODRÍGUEZ MD 06/30/182044: CARDIAC CONSULT ASSESSMENT/PLAN ASSESSMENT/PLAN Patient seen and examined. Agree with SUPERVISOR JOINERS's assessment and plan. Continue diuresis for acute on chronic systolic HF Slight trop elevation probably demand ischemia 2D echo showed EF 10-15% We will have her device interrogated Continue current medical regimen Thank you for your consultation ALEXANDRA JONES APRN Jun 30, 2018 13:34 MARIELY RODRÍGUEZ MD Jun 30, 2018 20:45
[2018-06-30] MEDS ORDERED: POTASSIUM CHLORIDE 20 MEQ TABLET.ER. PO ONE (14:00)
--- NOTE | 2018-06-30 14:44 | PDOC2 ---
CONSULT Date of Consult Date of Consult DATE: 06/30/18 TIME: 14:37 Reason for Consult Reason for Consult: Elevated Cr Source Source: Chart review, Patient History of Present Illness Reason for Visit: Pt is a 82 old AAF w/ PMHx HTN, CAD, systolic CHF EF 15% s/p BiV-AICD who came for weight gain 5 pounds and bl leg edema, sob with a worsening cough since 3 days ago. She also notes right sided chest pain on deep inspiration that is new. She has been compliant with diet and fluid intake, has no recent sick contacts No myalgias or URTI symptoms. She denies any urinary complaints. Denies NSAID's. Sees Dr. Good Steiner, last appt approx 1 month back as per patient Past Medical History Cardiovascular: CHF, HTN, Other (NICM EF 20%, LBBB, Left SCV thrombosis, varicosities, SVTs; dilated CM) Pulmonary: Asthma, Other (pulmonary HTN) GI: Other (colon polyp) Heme/Onc: Anemia NOS Hepatobiliary: No pertinent hx Psych: No pertinent hx Musculoskeletal: Osteoarthritis Rheumatologic: No pertinent hx Infectious disease: No pertinent hx ENT: No pertinent hx, Other (glaucoma) Renal/: No pertinent hx Endocrine: Osteoporosis Past Surgical History Past Surgical History: Pacemaker (BiV ICD ([employer])), Hysterectomy, Other ( lumpectomy) Family History Family History: Coronary Artery Disease Social History No ALCOHOL: none Drugs: None Lives: with Family Current Problem List Problem List Problems Medical Problems: (1) Acute pulmonary edema Status: Acute (2) CAP (community acquired pneumonia) Status: Acute (3) CHF (congestive heart failure) Status: Acute Current Medications Current Medications Current Medications Ceftriaxone Sodium (Rocephin) 1 gm 1X ONCE IVP Last administered on 06/29/18at 15:33; Start 06/29/18 at 15:15; Stop 06/29/18 at 15:17; Status DC Azithromycin (Zithromax) 500 mg 1X ONCE PO Last administered on 06/29/18at 15:30 ; Start 06/29/18 at 15:15; Stop 06/29/18 at 15:17; Status DC Acetaminophen/ Hydrocodone Bitart (Lortab 5/325) 1 tab 1X ONCE PO Last administered on 06/29/18at 15:31; Start 06/29/18 at 15:15; Stop 06/29/18 at 15:17; Status DC Azithromycin (Zithromax) 250 mg STK-MED ONCE .ROUTE ; Start 06/29/18 at 15:25; Stop 06/29/18 at 15:26; Status DC Amiodarone HCl (Cordarone) 200 mg DAILY PO Last administered on 06/30/18 08:55 ; Start 06/30/18 at 09:00 Aspirin (Children'S Aspirin) 81 mg DAILY PO Last administered on 06/30/18 08:55 ; Start 06/30/18 at 09:00 Carvedilol (Coreg) 6.25 mg BIDWMEALS PO Last administered on 06/30/18 08:56; Start 06/29/18 at 17:00 Simvastatin (Zocor) 20 mg HS PO Last administered on 06/29/18 22:06; Start 06/29 at 21:00 Ondansetron HCl (Zofran) 4 mg PRN Q6HRS PRN IV NAUSEA/VOMITING; Start 06/29/18 at 16:15 Acetaminophen (Tylenol) 650 mg PRN Q6HRS PRN PO Headaches, Temp > 101.5F; Start 06/29/18 at 16:15 Senna/Docusate Sodium (Senna Plus) 1 tab BID PO Last administered on 06/30/18 08:55; Start 06/29/18 at 21:00 Lactulose (Lactulose) 20 gm PRN Q12HR PRN PO CONSTIPATION; Start 06/29/18 at 16: 15 Heparin Sodium (Porcine) (Heparin Sodium) 5,000 unit Q12HR SQ Last administered on 06/30/18 09:08; Start 06/29/18 at 21:00 Furosemide (Lasix) 40 mg BID92 IVP Last administered on 06/30/18 08:57; Start 06/29/18 at 17:00 Ceftriaxone Sodium (Rocephin) 1 gm Q24H IVP ; Start 06/30/18 at 15:00 Doxycycline Hyclate 100 mg/ Dextrose 100 ml @ 50 mls/hr BID IV Last administered on 06/30/18 08:56; Start 06/29/18 at 17:00 Polyethylene Glycol (miraLAX PACKET) 17 gm DAILY PO Last administered on 3/7/ 19at 08:56; Start 06/30/18 at 09:00 Psyllium Hydrophilic Mucilloid (Metamucil Fiber Packet) 1 pkt DAILY PO ; Start 06/29/18 at 21:00 Cyanocobalamin (Vitamin B-12) 1,000 mcg 1X ONCE IM Last administered on at 00:25; Start 06/29/18 at 16:45; Stop 06/29/18 at 16:46; Status DC Lactobacillus Rhamnosus (Culturelle) 1 cap BID PO ; Start 06/30/18 at 21:00 Potassium Chloride (Klor-Con) 40 meq 1X ONCE PO ; Start 06/30/18 at 14:00; Stop 06/30/18 at 14:01; Status DC Active Scripts Active Amiodarone Hcl 200 Mg Tablet 200 Mg PO DAILY 30 Days Reported Furosemide 20 Mg Tablet 1 Tab PO DAILY Potassium Chloride 20 Meq Tablet.er 20 Meq PO DAILY Carvedilol (Carvedilol) 6.25 Mg Tablet 1 Tab PO BID Multivitamins (Multivitamin) 1 Each Tablet 1 Each PO Simvastatin 20 Mg Tablet 20 Mg PO HS Aspirin 81 Mg Tab.chew 81 Mg PO Allergies Allergies: Coded Allergies: No Known Drug Allergies (Unverified , 10/06/16) ROS Review of System As per HPI Physical Exam Physical Exam General: No acute distress HEENT: OM moist Neck supple Lungs: CTA bilat Heart: S1S2, RRR, Abdomen: Soft, No tenderness, Extremities: 2+ pitting edema bilaterally R>L Skin: No rashes, Neuro: Normal No Simpson Vital Signs Vital Signs Date Time Temp Pulse Resp B/P (MAP) Pulse Ox O2 Delivery O2 Flow Rate FiO2 06/30/18 11:00 97.4 67 17 99/60 (73) 98 Room Air 97.4 Assessment & Plan LAM on CKD - cardirenal Improved, close to baseline E-Lytes and acid base stable Monitor CKD stage [address] Steiner Acute on chronic systolic and diastolic heart failure: with severe CM. Cardiology following NICM/ICM History of ventricular tachycardia/ventricular fibrillation: on amiodarone HTN: controlled Labs Labs Laboratory Tests Test 06/29/18 13:40 06/29/18 13:50 06/29/18 14:50 06/30/18 09:48 Urine Color Lily Urine Clarity Cloudy Urine pH 5.5 Urine Specific [place] 1.015 Urine Protein 30 mg/dL (NEG-TRACE) Urine Glucose (UA) Negative mg/dL (NEG) Urine Ketones (Stick) Negative mg/dL (NEG) Urine Blood Negative (NEG) Urine Nitrite Negative (NEG) Urine Bilirubin Negative (NEG) Urine Urobilinogen Dipstick 1.0 mg/dL (0.2 mg/dL) Urine Leukocyte Esterase Trace (NEG) Urine RBC 0 /HPF (0-2) Urine WBC Occ /HPF (0-4) Urine Squamous Epithelial Cells Occ /LPF Urine Bacteria 0 /HPF (0-FEW) Urine Hyaline Casts Few /HPF White Blood Count 5.5 x10^3/uL (4.0-11.0) 5.3 x10^3/uL (4.0-11.0) Red Blood Count 5.33 x10^6/uL (3.50-5.40) 5.20 x10^6/uL (3.50-5.40) Hemoglobin 14.9 g/dL (12.0-15.5) 14.5 g/dL (12.0-15.5) Hematocrit 46.7 % (36.0-47.0) 45.4 % (36.0-47.0) Mean Corpuscular Volume 88 fL (79-100) 87 fL (79-100) Mean Corpuscular Hemoglobin 28 pg (25-35) 28 pg (25-35) Mean Corpuscular Hemoglobin Concent 32 g/dL (31-37) 32 g/dL (31-37) Red Cell Distribution Width 17.0 % (11.5-14.5) 16.6 % (11.5-14.5) Platelet Count 113 x10^3/uL (140-400) 122 x10^3/uL (140-400) Neutrophils (%) (Auto) 78 % (31-73) 77 % (31-73) Lymphocytes (%) (Auto) 10 % (24-48) 11 % (24-48) Monocytes (%) (Auto) 11 % (0-9) 10 % (0-9) Eosinophils (%) (Auto) 1 % (0-3) 1 % (0-3) Basophils (%) (Auto) 1 % (0-3) 1 % (0-3) Neutrophils # (Auto) 4.3 x10^3uL (1.8-7.7) 4.1 x10^3uL (1.8-7.7) Lymphocytes # (Auto) 0.5 x10^3/uL (1.0-4.8) 0.6 x10^3/uL (1.0-4.8) Monocytes # (Auto) 0.6 x10^3/uL (0.0-1.1) 0.5 x10^3/uL (0.0-1.1) Eosinophils # (Auto) 0.0 x10^3/uL (0.0-0.7) 0.1 x10^3/uL (0.0-0.7) Basophils # (Auto) 0.0 x10^3/uL (0.0-0.2) 0.0 x10^3/uL (0.0-0.2) Platelet Estimate Decreased (ADEQUATE) Large Platelets Occ Giant Platelets Present Ovalocytes Occ Schistocytes Occ RBC Morphology Bizarre Forms Occ Sodium Level 143 mmol/L (136-145) 143 mmol/L (136-145) Potassium Level 4.0 mmol/L (3.5-5.1) 3.5 mmol/L (3.5-5.1) Chloride Level 102 mmol/L (98-107) 103 mmol/L (98-107) Carbon Dioxide Level 28 mmol/L (21-32) 28 mmol/L (21-32) Anion Gap 13 (6-14) 12 (6-14) Blood Urea Nitrogen 56 mg/dL (7-20) 51 mg/dL (7-20) Creatinine 2.2 mg/dL (0.6-1.0) 1.9 mg/dL (0.6-1.0) Estimated GFR (Cockcroft-Gault) 25.7 30.5 BUN/Creatinine Ratio 25 (6-20) Glucose Level 164 mg/dL (70-99) 171 mg/dL (70-99) Calcium Level 10.0 mg/dL (8.5-10.1) 9.9 mg/dL (8.5-10.1) Total Bilirubin 2.0 mg/dL (0.2-1.0) Aspartate Amino Transf (AST/SGOT) 31 U/L (15-37) Alanine Aminotransferase (ALT/SGPT) 26 U/L (14-59) Alkaline Phosphatase 113 U/L (46-116) Creatine Kinase 71 U/L (26-192) Creatine Kinase MB (Mass) 1.0 ng/mL (0.0-3.6) Creatine Kinase MB Relative Index % (0-4) Troponin I Quantitative 0.184 ng/mL (0.000-0.055) VN-Vem-P-Type Natriuretic Peptide 22435 pg/mL (0-449) Total Protein 6.4 g/dL (6.4-8.2) Albumin 3.3 g/dL (3.4-5.0) Albumin/Globulin Ratio 1.1 (1.0-1.7) Lactic Acid Level 1.7 mmol/L (0.4-2.0) Laboratory Tests Test 06/29/18 14:50 06/30/18 09:48 Lactic Acid Level 1.7 mmol/L (0.4-2.0) White Blood Count 5.3 x10^3/uL (4.0-11.0) Red Blood Count 5.20 x10^6/uL (3.50-5.40) Hemoglobin 14.5 g/dL (12.0-15.5) Hematocrit 45.4 % (36.0-47.0) Mean Corpuscular Volume 87 fL (79-100) Mean Corpuscular Hemoglobin 28 pg (25-35) Mean Corpuscular Hemoglobin Concent 32 g/dL (31-37) Red Cell Distribution Width 16.6 % (11.5-14.5) Platelet Count 122 x10^3/uL (140-400) Neutrophils (%) (Auto) 77 % (31-73) Lymphocytes (%) (Auto) 11 % (24-48) Monocytes (%) (Auto) 10 % (0-9) Eosinophils (%) (Auto) 1 % (0-3) Basophils (%) (Auto) 1 % (0-3) Neutrophils # (Auto) 4.1 x10^3uL (1.8-7.7) Lymphocytes # (Auto) 0.6 x10^3/uL (1.0-4.8) Monocytes # (Auto) 0.5 x10^3/uL (0.0-1.1) Eosinophils # (Auto) 0.1 x10^3/uL (0.0-0.7) Basophils # (Auto) 0.0 x10^3/uL (0.0-0.2) Sodium Level 143 mmol/L (136-145) Potassium Level 3.5 mmol/L (3.5-5.1) Chloride Level 103 mmol/L (98-107) Carbon Dioxide Level 28 mmol/L (21-32) Anion Gap 12 (6-14) Blood Urea Nitrogen 51 mg/dL (7-20) Creatinine 1.9 mg/dL (0.6-1.0) Estimated GFR (Cockcroft-Gault) 30.5 Glucose Level 171 mg/dL (70-99) Calcium Level 9.9 mg/dL (8.5-10.1) Review All relevant outside records, renal labs, imaging studies, telemetry/EKG's were reviewed. Images Images CxR-- Consolation of findings including parenchymal opacities, cardiomegaly and small right pleural effusion may be seen with pulmonary edema. However multifocal pneumonia may have similar appearance. ANGELA MONREAL MD Jun 30, 2018 14:44
--- NOTE | 2018-06-30 14:57 | NUR ---
SW following pt for anticipated dc needs. Chart reviewed. [facility]. No DC recommendation/SW needs noted at this time. SW will continue to follow.
[2018-06-30 15:00] VITALS: BP 106/58
[2018-06-30] MEDS ORDERED: cefTRIAXone IV Push 1 GM VIAL. IVP SCH (15:00)
--- NOTE | 2018-06-30 16:57 | PDOC ---
PULMONARY PROGRESS NOTES Vitals Vital Signs Date Time Temp Pulse Resp B/P (MAP) Pulse Ox O2 Delivery O2 Flow Rate FiO2 06/30/18 15:00 98.1 60 17 106/58 (74) 95 Room Air 98.1 Lungs: Clear Labs Laboratory Tests Test 06/29/18 13:40 06/29/18 13:50 06/29/18 14:50 06/30/18 09:48 Urine Color Lily Urine Clarity Cloudy Urine pH 5.5 Urine Specific [place] 1.015 Urine Protein 30 mg/dL (NEG-TRACE) Urine Glucose (UA) Negative mg/dL (NEG) Urine Ketones (Stick) Negative mg/dL (NEG) Urine Blood Negative (NEG) Urine Nitrite Negative (NEG) Urine Bilirubin Negative (NEG) Urine Urobilinogen Dipstick 1.0 mg/dL (0.2 mg/dL) Urine Leukocyte Esterase Trace (NEG) Urine RBC 0 /HPF (0-2) Urine WBC Occ /HPF (0-4) Urine Squamous Epithelial Cells Occ /LPF Urine Bacteria 0 /HPF (0-FEW) Urine Hyaline Casts Few /HPF White Blood Count 5.5 x10^3/uL (4.0-11.0) 5.3 x10^3/uL (4.0-11.0) Red Blood Count 5.33 x10^6/uL (3.50-5.40) 5.20 x10^6/uL (3.50-5.40) Hemoglobin 14.9 g/dL (12.0-15.5) 14.5 g/dL (12.0-15.5) Hematocrit 46.7 % (36.0-47.0) 45.4 % (36.0-47.0) Mean Corpuscular Volume 88 fL (79-100) 87 fL (79-100) Mean Corpuscular Hemoglobin 28 pg (25-35) 28 pg (25-35) Mean Corpuscular Hemoglobin Concent 32 g/dL (31-37) 32 g/dL (31-37) Red Cell Distribution Width 17.0 % (11.5-14.5) 16.6 % (11.5-14.5) Platelet Count 113 x10^3/uL (140-400) 122 x10^3/uL (140-400) Neutrophils (%) (Auto) 78 % (31-73) 77 % (31-73) Lymphocytes (%) (Auto) 10 % (24-48) 11 % (24-48) Monocytes (%) (Auto) 11 % (0-9) 10 % (0-9) Eosinophils (%) (Auto) 1 % (0-3) 1 % (0-3) Basophils (%) (Auto) 1 % (0-3) 1 % (0-3) Neutrophils # (Auto) 4.3 x10^3uL (1.8-7.7) 4.1 x10^3uL (1.8-7.7) Lymphocytes # (Auto) 0.5 x10^3/uL (1.0-4.8) 0.6 x10^3/uL (1.0-4.8) Monocytes # (Auto) 0.6 x10^3/uL (0.0-1.1) 0.5 x10^3/uL (0.0-1.1) Eosinophils # (Auto) 0.0 x10^3/uL (0.0-0.7) 0.1 x10^3/uL (0.0-0.7) Basophils # (Auto) 0.0 x10^3/uL (0.0-0.2) 0.0 x10^3/uL (0.0-0.2) Platelet Estimate Decreased (ADEQUATE) Large Platelets Occ Giant Platelets Present Ovalocytes Occ Schistocytes Occ RBC Morphology Bizarre Forms Occ Sodium Level 143 mmol/L (136-145) 143 mmol/L (136-145) Potassium Level 4.0 mmol/L (3.5-5.1) 3.5 mmol/L (3.5-5.1) Chloride Level 102 mmol/L (98-107) 103 mmol/L (98-107) Carbon Dioxide Level 28 mmol/L (21-32) 28 mmol/L (21-32) Anion Gap 13 (6-14) 12 (6-14) Blood Urea Nitrogen 56 mg/dL (7-20) 51 mg/dL (7-20) Creatinine 2.2 mg/dL (0.6-1.0) 1.9 mg/dL (0.6-1.0) Estimated GFR (Cockcroft-Gault) 25.7 30.5 BUN/Creatinine Ratio 25 (6-20) Glucose Level 164 mg/dL (70-99) 171 mg/dL (70-99) Calcium Level 10.0 mg/dL (8.5-10.1) 9.9 mg/dL (8.5-10.1) Total Bilirubin 2.0 mg/dL (0.2-1.0) Aspartate Amino Transf (AST/SGOT) 31 U/L (15-37) Alanine Aminotransferase (ALT/SGPT) 26 U/L (14-59) Alkaline Phosphatase 113 U/L (46-116) Creatine Kinase 71 U/L (26-192) Creatine Kinase MB (Mass) 1.0 ng/mL (0.0-3.6) Creatine Kinase MB Relative Index % (0-4) Troponin I Quantitative 0.184 ng/mL (0.000-0.055) FH-Qmw-P-Type Natriuretic Peptide 59207 pg/mL (0-449) Total Protein 6.4 g/dL (6.4-8.2) Albumin 3.3 g/dL (3.4-5.0) Albumin/Globulin Ratio 1.1 (1.0-1.7) Lactic Acid Level 1.7 mmol/L (0.4-2.0) Thyroid Stimulating Hormone (TSH) 2.507 uIU/mL (0.358-3.74) Laboratory Tests Test 06/30/18 09:48 White Blood Count 5.3 x10^3/uL (4.0-11.0) Red Blood Count 5.20 x10^6/uL (3.50-5.40) Hemoglobin 14.5 g/dL (12.0-15.5) Hematocrit 45.4 % (36.0-47.0) Mean Corpuscular Volume 87 fL (79-100) Mean Corpuscular Hemoglobin 28 pg (25-35) Mean Corpuscular Hemoglobin Concent 32 g/dL (31-37) Red Cell Distribution Width 16.6 % (11.5-14.5) Platelet Count 122 x10^3/uL (140-400) Neutrophils (%) (Auto) 77 % (31-73) Lymphocytes (%) (Auto) 11 % (24-48) Monocytes (%) (Auto) 10 % (0-9) Eosinophils (%) (Auto) 1 % (0-3) Basophils (%) (Auto) 1 % (0-3) Neutrophils # (Auto) 4.1 x10^3uL (1.8-7.7) Lymphocytes # (Auto) 0.6 x10^3/uL (1.0-4.8) Monocytes # (Auto) 0.5 x10^3/uL (0.0-1.1) Eosinophils # (Auto) 0.1 x10^3/uL (0.0-0.7) Basophils # (Auto) 0.0 x10^3/uL (0.0-0.2) Sodium Level 143 mmol/L (136-145) Potassium Level 3.5 mmol/L (3.5-5.1) Chloride Level 103 mmol/L (98-107) Carbon Dioxide Level 28 mmol/L (21-32) Anion Gap 12 (6-14) Blood Urea Nitrogen 51 mg/dL (7-20) Creatinine 1.9 mg/dL (0.6-1.0) Estimated GFR (Cockcroft-Gault) 30.5 Glucose Level 171 mg/dL (70-99) Calcium Level 9.9 mg/dL (8.5-10.1) Thyroid Stimulating Hormone (TSH) 2.507 uIU/mL (0.358-3.74) Medications Active Scripts Medications Dose Route/Sig Max Daily Dose Days Date Category Furosemide 20 Mg Tablet 1 Tab PO DAILY 01/23/18 Reported Potassium Chloride 20 Meq Tablet.er 20 Meq PO DAILY 01/23/18 Reported Carvedilol (Carvedilol) 6.25 Mg Tablet 1 Tab PO BID 01/22/18 Reported Amiodarone Hcl 200 Mg Tablet 200 Mg PO DAILY 30 12/31/16 Rx Multivitamins (Multivitamin) 1 Each Tablet 1 Each PO 12/29/16 Reported Simvastatin 20 Mg Tablet 20 Mg PO HS 10/06/16 Reported Aspirin 81 Mg Tab.chew 81 Mg PO 10/06/16 Reported Impression . NOTE DICTATED MOSTLY ACUTE CHF WILL D/C ANTIBX REPEAT CXR IN AM THANKS NO NEED FOR THORACENTESIS AT THIS TIME ESTEPHANIE SCHULZ MD Jun 30, 2018 16:57
--- NOTE | 2018-06-30 17:16 | CARD ---
MR#: [id number] Date of Study: 06/30/2018 Ordering Physician: ALEXANDRA JONES, Referring Physician: HIPOLITO PHILLIPS, Tech: Vanessa Black [facility] APPROVED REPORT EXAM: Two-dimensional and M-mode echocardiogram with Doppler and color Doppler. Other Information Quality : Good INDICATION Congestive Heart Failure 2D DIMENSIONS RVDd2.2 (2.9-3.5cm)Left Atrium(2D)3.7 (1.6-4.0cm) IVSd1.1 (0.7-1.1cm)Aortic Root(2D)2.6 (2.0-3.7cm) LVDd5.4 (3.9-5.9cm)LVOT Diameter2.0 (1.8-2.4cm) PWd1.4 (0.7-1.1cm)LVDs4.2 (2.5-4.0cm) FS (%) 5.0 %SV62.5 ml LVEF(%)10.0 (>50%) Aortic Valve AoV Peak Demetri.91.1cm/sAoV VTI13.4cm AO Peak GR.3.3mmHgLVOT Peak Demetri.46.9cm/s AO Mean GR.2mmHgAVA (VMAX)1.59cm2 Mitral Valve MV E Joxkgzxa56.2cm/sMV DECEL [id number] MV A Ypezlluz44.4cm/sE/A Ratio2.0 Tricuspid Valve TR P. Nypjappt431tu/sRAP [id number] TR Peak Gr.[id number] LEFT VENTRICLE The left ventricle is normal size. There is mild concentric left ventricular hypertrophy. Left ventri alin systolic function is severely impaired. The Ejection Fraction is 10-15%. There is severe global h ypokinesis of the left ventricle. Tissue Doppler imaging reveals severe left ventricular diastolic dy sfunction. RIGHT VENTRICLE The right ventricle is moderately dilated. The right ventricular systolic function is normal. There i s a pacemaker/ICD lead in the right ventricle. ATRIA The left atrium size is normal. The right atrium is mildly dilated. A pacemaker is seen in the right atrium consistent with history. The interatrial septum is intact with no evidence for an atrial septa l defect or patent foramen ovale as noted on 2-D or Doppler imaging. AORTIC VALVE The aortic valve is calcified but opens well. Doppler and Color Flow revealed no significant aortic r egurgitation. There is no significant aortic valvular stenosis. MITRAL VALVE The mitral valve is calcified but opens well. There is no evidence of mitral valve prolapse. There is no mitral valve stenosis. Doppler and Color-flow revealed moderate mitral regurgitation. TRICUSPID VALVE The tricuspid valve is normal in structure and function. Doppler and Color Flow revealed mild to mode rate tricuspid regurgitation. There is moderate pulmonary hypertension. The PA pressure was estimated at 52 mmHg. There is no tricuspid valve stenosis. PULMONIC VALVE The pulmonary valve is normal in structure and function. Doppler and Color Flow revealed mild pulmoni c valvular regurgitation. There is no pulmonic valvular stenosis. GREAT VESSELS The aortic root is normal in size. The ascending aorta is normal in size. Dilated pulmonary artery no abelardo. The IVC is dilated and collapses <50% with inspiration. PERICARDIAL EFFUSION There is a trace circumferential pericardial effusion. Critical Notification Critical Value: No <Conclusion> Left ventricle systolic function is severely impaired. The Ejection Fraction is 10-15%. There is severe global hypokinesis of the left ventricle. There is a pacemaker/ICD lead in the right ventricle. Doppler and Color Flow revealed mild to moderate tricuspid regurgitation. There is moderate pulmonary hypertension. The PA pressure was estimated at 52 mmHg. The IVC is dilated and collapses <50% with inspiration. Signed by : Carlton Toussaint, Electronically Approved : 06/30/2018 17:15:16
[2018-06-30 19:00] VITALS: BP 90/63
--- NOTE | 2018-06-30 19:39 | PDOC ---
PROGRESS NOTES Chief Complaint Chief Complaint Acute on chronic systolic and diastolic heart failure in the setting of ischemic cardiomyopathy. EF 15% - likely set off by pneumonia.appreciate service delivery management consultant recommendations, sees Dr. Dorman outpatient Right pleural effusion - follow pulmonary coding consultant recommendations. Multifocal pneumonia - will cont rocephin + doxycycline. History of ventricular tachycardia/ventricular fibrillation status post Bi-V implantable cardioverter-defibrillator. Constipation - will continue bowel regimen. LAM on CKD3, vasomotor and possible component of cardiorenal syndrome in her. Nephrology to see her. She just established outpatient, she thinks with Dr. White copd - only slight wheezes, will give prn nebs. Consult pulm for pleural effusion FEN - Cardiac diet. 2L fluid restriction PPX - heparin BID FULL CODE Inpatient for CHF exacerbation likely set off by a community acquired pneumonia , will be inpatient at least 2 midnights. History of Present Illness History of Present Illness Patient medically stable. The patient continues to do well and is recovering satisfactorily from her acute illness. Hopefully will be able to dismiss soon from the hospital setting Vitals Vitals Vital Signs Date Time Temp Pulse Resp B/P (MAP) Pulse Ox O2 Delivery O2 Flow Rate FiO2 06/30/18 17:00 60 106/58 06/30/18 15:00 98.1 17 95 Room Air 98.1 Physical Exam General: Alert, Oriented X3, Cooperative, No acute distress Heart: Regular rate, Other (3/6 systolic murmur to LLS border) Lungs: Clear Abdomen: Soft, No tenderness Extremities: No cyanosis, Other (3+ bilateral LE pitting edema) Skin: No breakdown, No significant lesion Labs LABS Laboratory Tests Test 06/30/18 09:48 White Blood Count 5.3 x10^3/uL (4.0-11.0) Red Blood Count 5.20 x10^6/uL (3.50-5.40) Hemoglobin 14.5 g/dL (12.0-15.5) Hematocrit 45.4 % (36.0-47.0) Mean Corpuscular Volume 87 fL (79-100) Mean Corpuscular Hemoglobin 28 pg (25-35) Mean Corpuscular Hemoglobin Concent 32 g/dL (31-37) Red Cell Distribution Width 16.6 % (11.5-14.5) Platelet Count 122 x10^3/uL (140-400) Neutrophils (%) (Auto) 77 % (31-73) Lymphocytes (%) (Auto) 11 % (24-48) Monocytes (%) (Auto) 10 % (0-9) Eosinophils (%) (Auto) 1 % (0-3) Basophils (%) (Auto) 1 % (0-3) Neutrophils # (Auto) 4.1 x10^3uL (1.8-7.7) Lymphocytes # (Auto) 0.6 x10^3/uL (1.0-4.8) Monocytes # (Auto) 0.5 x10^3/uL (0.0-1.1) Eosinophils # (Auto) 0.1 x10^3/uL (0.0-0.7) Basophils # (Auto) 0.0 x10^3/uL (0.0-0.2) Sodium Level 143 mmol/L (136-145) Potassium Level 3.5 mmol/L (3.5-5.1) Chloride Level 103 mmol/L (98-107) Carbon Dioxide Level 28 mmol/L (21-32) Anion Gap 12 (6-14) Blood Urea Nitrogen 51 mg/dL (7-20) Creatinine 1.9 mg/dL (0.6-1.0) Estimated GFR (Cockcroft-Gault) 30.5 Glucose Level 171 mg/dL (70-99) Calcium Level 9.9 mg/dL (8.5-10.1) Thyroid Stimulating Hormone (TSH) 2.507 uIU/mL (0.358-3.74) Review of Systems Review of Systems Mass per history of present illness otherwise 14 point review of system is negative Assessment and Plan Assessmemt and Plan Problems Medical Problems: (1) Acute pulmonary edema Status: Acute (2) CAP (community acquired pneumonia) Status: Acute (3) CHF (congestive heart failure) Status: Acute Comment Review of Relevant I have reviewed the following items rufino (where applicable) has been applied. Labs Laboratory Tests Test 06/29/18 13:40 06/29/18 13:50 06/29/18 14:50 06/30/18 09:48 Urine Color Lily Urine Clarity Cloudy Urine pH 5.5 Urine Specific [place] 1.015 Urine Protein 30 mg/dL (NEG-TRACE) Urine Glucose (UA) Negative mg/dL (NEG) Urine Ketones (Stick) Negative mg/dL (NEG) Urine Blood Negative (NEG) Urine Nitrite Negative (NEG) Urine Bilirubin Negative (NEG) Urine Urobilinogen Dipstick 1.0 mg/dL (0.2 mg/dL) Urine Leukocyte Esterase Trace (NEG) Urine RBC 0 /HPF (0-2) Urine WBC Occ /HPF (0-4) Urine Squamous Epithelial Cells Occ /LPF Urine Bacteria 0 /HPF (0-FEW) Urine Hyaline Casts Few /HPF White Blood Count 5.5 x10^3/uL (4.0-11.0) 5.3 x10^3/uL (4.0-11.0) Red Blood Count 5.33 x10^6/uL (3.50-5.40) 5.20 x10^6/uL (3.50-5.40) Hemoglobin 14.9 g/dL (12.0-15.5) 14.5 g/dL (12.0-15.5) Hematocrit 46.7 % (36.0-47.0) 45.4 % (36.0-47.0) Mean Corpuscular Volume 88 fL (79-100) 87 fL (79-100) Mean Corpuscular Hemoglobin 28 pg (25-35) 28 pg (25-35) Mean Corpuscular Hemoglobin Concent 32 g/dL (31-37) 32 g/dL (31-37) Red Cell Distribution Width 17.0 % (11.5-14.5) 16.6 % (11.5-14.5) Platelet Count 113 x10^3/uL (140-400) 122 x10^3/uL (140-400) Neutrophils (%) (Auto) 78 % (31-73) 77 % (31-73) Lymphocytes (%) (Auto) 10 % (24-48) 11 % (24-48) Monocytes (%) (Auto) 11 % (0-9) 10 % (0-9) Eosinophils (%) (Auto) 1 % (0-3) 1 % (0-3) Basophils (%) (Auto) 1 % (0-3) 1 % (0-3) Neutrophils # (Auto) 4.3 x10^3uL (1.8-7.7) 4.1 x10^3uL (1.8-7.7) Lymphocytes # (Auto) 0.5 x10^3/uL (1.0-4.8) 0.6 x10^3/uL (1.0-4.8) Monocytes # (Auto) 0.6 x10^3/uL (0.0-1.1) 0.5 x10^3/uL (0.0-1.1) Eosinophils # (Auto) 0.0 x10^3/uL (0.0-0.7) 0.1 x10^3/uL (0.0-0.7) Basophils # (Auto) 0.0 x10^3/uL (0.0-0.2) 0.0 x10^3/uL (0.0-0.2) Platelet Estimate Decreased (ADEQUATE) Large Platelets Occ Giant Platelets Present Ovalocytes Occ Schistocytes Occ RBC Morphology Bizarre Forms Occ Sodium Level 143 mmol/L (136-145) 143 mmol/L (136-145) Potassium Level 4.0 mmol/L (3.5-5.1) 3.5 mmol/L (3.5-5.1) Chloride Level 102 mmol/L (98-107) 103 mmol/L (98-107) Carbon Dioxide Level 28 mmol/L (21-32) 28 mmol/L (21-32) Anion Gap 13 (6-14) 12 (6-14) Blood Urea Nitrogen 56 mg/dL (7-20) 51 mg/dL (7-20) Creatinine 2.2 mg/dL (0.6-1.0) 1.9 mg/dL (0.6-1.0) Estimated GFR (Cockcroft-Gault) 25.7 30.5 BUN/Creatinine Ratio 25 (6-20) Glucose Level 164 mg/dL (70-99) 171 mg/dL (70-99) Calcium Level 10.0 mg/dL (8.5-10.1) 9.9 mg/dL (8.5-10.1) Total Bilirubin 2.0 mg/dL (0.2-1.0) Aspartate Amino Transf (AST/SGOT) 31 U/L (15-37) Alanine Aminotransferase (ALT/SGPT) 26 U/L (14-59) Alkaline Phosphatase 113 U/L (46-116) Creatine Kinase 71 U/L (26-192) Creatine Kinase MB (Mass) 1.0 ng/mL (0.0-3.6) Creatine Kinase MB Relative Index % (0-4) Troponin I Quantitative 0.184 ng/mL (0.000-0.055) [id number]-Jgb-M-Type Natriuretic Peptide 51150 pg/mL (0-449) Total Protein 6.4 g/dL (6.4-8.2) Albumin 3.3 g/dL (3.4-5.0) Albumin/Globulin Ratio 1.1 (1.0-1.7) Lactic Acid Level 1.7 mmol/L (0.4-2.0) Thyroid Stimulating Hormone (TSH) 2.507 uIU/mL (0.358-3.74) Laboratory Tests Test 06/30/18 09:48 White Blood Count 5.3 x10^3/uL (4.0-11.0) Red Blood Count 5.20 x10^6/uL (3.50-5.40) Hemoglobin 14.5 g/dL (12.0-15.5) Hematocrit 45.4 % (36.0-47.0) Mean Corpuscular Volume 87 fL (79-100) Mean Corpuscular Hemoglobin 28 pg (25-35) Mean Corpuscular Hemoglobin Concent 32 g/dL (31-37) Red Cell Distribution Width 16.6 % (11.5-14.5) Platelet Count 122 x10^3/uL (140-400) Neutrophils (%) (Auto) 77 % (31-73) Lymphocytes (%) (Auto) 11 % (24-48) Monocytes (%) (Auto) 10 % (0-9) Eosinophils (%) (Auto) 1 % (0-3) Basophils (%) (Auto) 1 % (0-3) Neutrophils # (Auto) 4.1 x10^3uL (1.8-7.7) Lymphocytes # (Auto) 0.6 x10^3/uL (1.0-4.8) Monocytes # (Auto) 0.5 x10^3/uL (0.0-1.1) Eosinophils # (Auto) 0.1 x10^3/uL (0.0-0.7) Basophils # (Auto) 0.0 x10^3/uL (0.0-0.2) Sodium Level 143 mmol/L (136-145) Potassium Level 3.5 mmol/L (3.5-5.1) Chloride Level 103 mmol/L (98-107) Carbon Dioxide Level 28 mmol/L (21-32) Anion Gap 12 (6-14) Blood Urea Nitrogen 51 mg/dL (7-20) Creatinine 1.9 mg/dL (0.6-1.0) Estimated GFR (Cockcroft-Gault) 30.5 Glucose Level 171 mg/dL (70-99) Calcium Level 9.9 mg/dL (8.5-10.1) Thyroid Stimulating Hormone (TSH) 2.507 uIU/mL (0.358-3.74) Microbiology 06/29/18 Blood Culture - Preliminary, Resulted NO GROWTH AFTER 1 DAY Medications Current Medications Ceftriaxone Sodium (Rocephin) 1 gm 1X ONCE IVP Last administered on 06/29/18at 15:33; Start 06/29/18 at 15:15; Stop 06/29/18 at 15:17; Status DC Azithromycin (Zithromax) 500 mg 1X ONCE PO Last administered on 06/29/18at 15:30 ; Start 06/29/18 at 15:15; Stop 06/29/18 at 15:17; Status DC Acetaminophen/ Hydrocodone Bitart (Lortab 5/325) 1 tab 1X ONCE PO Last administered on 06/29/18at 15:31; Start 06/29/18 at 15:15; Stop 06/29/18 at 15:17; Status DC Azithromycin (Zithromax) 250 mg STK-MED ONCE .ROUTE ; Start 06/29/18 at 15:25; Stop 06/29/18 at 15:26; Status DC Amiodarone HCl (Cordarone) 200 mg DAILY PO Last administered on 06/30/18at 08:55 ; Start 06/30/18 at 09:00 Aspirin (Children'S Aspirin) 81 mg DAILY PO Last administered on 06/30/18at 08:55 ; Start 06/30/18 at 09:00 Carvedilol (Coreg) 6.25 mg BIDWMEALS PO Last administered on 06/30/18at 08:56; Start 06/29/18 at 17:00 Simvastatin (Zocor) 20 mg HS PO Last administered on 06/29/18at 22:06; Start 06/29 at 21:00 Ondansetron HCl (Zofran) 4 mg PRN Q6HRS PRN IV NAUSEA/VOMITING; Start 06/29/18 at 16:15 Acetaminophen (Tylenol) 650 mg PRN Q6HRS PRN PO Headaches, Temp > 101.5F; Start 06/29/18 at 16:15 Senna/Docusate Sodium (Senna Plus) 1 tab BID PO Last administered on 06/30/18at 08:55; Start 06/29/18 at 21:00 Lactulose (Lactulose) 20 gm PRN Q12HR PRN PO CONSTIPATION; Start 06/29/18 at 16: 15 Heparin Sodium (Porcine) (Heparin Sodium) 5,000 unit Q12HR SQ Last administered on 06/30/18at 09:08; Start 06/29/18 at 21:00 Furosemide (Lasix) 40 mg BID92 IVP Last administered on 06/30/18at 15:37; Start 06/29/18 at 17:00 Ceftriaxone Sodium (Rocephin) 1 gm Q24H IVP ; Start 06/30/18 at 15:00; Stop at 16:56; Status DC Doxycycline Hyclate 100 mg/ Dextrose 100 ml @ 50 mls/hr BID IV Last administered on 06/30/18at 08:56; Start 06/29/18 at 17:00; Stop 06/30/18 at 16:56; Status DC Polyethylene Glycol (miraLAX PACKET) 17 gm DAILY PO Last administered on at 08:56; Start 06/30/18 at 09:00 Psyllium Hydrophilic Mucilloid (Metamucil Fiber Packet) 1 pkt DAILY PO ; Start 06/29/18 at 21:00 Cyanocobalamin (Vitamin B-12) 1,000 mcg 1X ONCE IM Last administered on at 00:25; Start 06/29/18 at 16:45; Stop 06/29/18 at 16:46; Status DC Lactobacillus Rhamnosus (Culturelle) 1 cap BID PO ; Start 06/30/18 at 21:00 Potassium Chloride (Klor-Con) 40 meq 1X ONCE PO Last administered on 06/30/18at 15:37; Start 06/30/18 at 14:00; Stop 06/30/18 at 14:01; Status DC Active Scripts Active Amiodarone Hcl 200 Mg Tablet 200 Mg PO DAILY 30 Days Reported Furosemide 20 Mg Tablet 1 Tab PO DAILY Potassium Chloride 20 Meq Tablet.er 20 Meq PO DAILY Carvedilol (Carvedilol) 6.25 Mg Tablet 1 Tab PO BID Multivitamins (Multivitamin) 1 Each Tablet 1 Each PO Simvastatin 20 Mg Tablet 20 Mg PO HS Aspirin 81 Mg Tab.chew 81 Mg PO Vitals/I & O Vital Sign - Last 24 Hours 06/29/18 06/29/18 06/30/18 06/30/18 20:20 22:40 02:53 07:00 Temp 97.5 97.6 98.4 97.5 97.6 98.4 Pulse 73 62 61 Resp 15 16 17 B/P (MAP) 118/69 (85) 117/60 (79) 108/63 (78) Pulse Ox 98 98 98 O2 Delivery Room Air Room Air Room Air Room Air 06/30/18 06/30/18 06/30/18 06/30/18 08:00 08:55 08:56 11:00 Temp 97.4 97.4 Pulse 62 62 67 Resp 17 B/P (MAP) 117/60 117/60 99/60 (73) Pulse Ox 98 O2 Delivery Room Air Room Air 06/30/18 06/30/18 15:00 17:00 Temp 98.1 98.1 Pulse 60 60 Resp 17 B/P (MAP) 106/58 (74) 106/58 Pulse Ox 95 O2 Delivery Room Air Intake and Output 06/29/18 06/29/18 06/30/18 15:00 23:00 07:00 Intake Total 150 ml Balance 150 ml MAJO GILLIS MD Jun 30, 2018 19:39
[2018-06-30] MEDS: SIMVASTATIN 20 MG TABLET PO SCH (21:13)
[2018-06-30] MEDS: LACTOBACILLUS RHAMNOSUS GG 1 CAPSULE. PO SCH (21:13)
[2018-06-30 23:00] VITALS: BP 111/58
[2018-07-01 03:00] VITALS: BP 106/63
[2018-07-01 04:17] LABS: BASO % 0 % (0-3); EOS # 0.1 x10^3/uL (0.0-0.7); EOS % 3 % (0-3); HEMATOCRIT 44.1 % (36.0-47.0); HEMOGLOBIN 13.8 g/dL (12.0-15.5); LYMPH # 0.8 x10^3/uL (1.0-4.8); LYMPH % 19 % (24-48); MEAN CORPUSCULAR HEMOGLOBIN 27 pg (25-35); MEAN CORPUSCULAR HGB CONC 31 g/dL (31-37); MEAN CORPUSCULAR VOLUME 87 fL (79-100); MONO # 0.6 x10^3/uL (0.0-1.1); MONO % 15 % (0-9); NEUT # 2.8 x10^3uL (1.8-7.7); NEUT % 64 % (31-73); PLATELET COUNT 115 x10^3/uL (140-400); RED BLOOD COUNT 5.08 x10^6/uL (3.50-5.40); RED CELL DISTRIBUTION WIDTH 16.8 % (11.5-14.5); WHITE BLOOD COUNT 4.4 x10^3/uL (4.0-11.0)
[2018-07-01 04:39] LABS: CALCIUM 9.2 mg/dL (8.5-10.1); CREATININE 1.9 mg/dL (0.6-1.0); GFR 30.5; POTASSIUM 4.2 mmol/L (3.5-5.1)
[2018-07-01 07:00] VITALS: BP 105/70
[2018-07-01] MEDS: CARVEDILOL 6.25 MG TABLET. PO SCH (07:59)
[2018-07-01] MEDS: PSYLLIUM HUSK (SUGAR FREE) 1 PKT PACKET PO SCH (07:59)
[2018-07-01] MEDS: SENNOSIDES/DOCUSATE 8.6/50MG TABLET. PO SCH (08:00)
[2018-07-01] MEDS: POLYETHYLENE GLYCOL 3350 17 GM PACKET. PO SCH (08:00)
[2018-07-01] MEDS: ASPIRIN CHEWABLE 81 MG TABLET. PO SCH (08:00)
[2018-07-01] MEDS: LACTOBACILLUS RHAMNOSUS GG 1 CAPSULE. PO SCH (08:00)
[2018-07-01] MEDS: AMIODARONE HCL 200 MG TABLET. PO SCH (08:01)
[2018-07-01] MEDS: FUROSEMIDE 40 MG/4 ML VIAL. IVP SCH ×2 (08:01→13:42)
--- NOTE | 2018-07-01 08:13 | CONS ---
DATE OF CONSULTATION: 06/30/2018 ATTENDING PHYSICIAN: Dr. Medina. REASON FOR CONSULTATION: The patient is seen in pulmonary consultation at the request of Dr. Medina for abnormal x-ray. HISTORY OF PRESENT ILLNESS: The patient is an 83-year-old with a history of cardiomyopathy, ejection fraction 15%. She is status post biventricular AICD, gained 5 pounds and over the last several days she was increasingly more short of breath. She had a chest x-ray revealing effusion, left greater than right with basilar atelectasis. The patient does admit to eating some soup. She did not check the sodium content. She now feels better. She also had some pleuritic type of discomfort on the right side. No fever or chills. She wears no oxygen at home. She has never smoked. PAST MEDICAL HISTORY: Significant for ischemic cardiomyopathy, ejection fraction 15%, coronary artery disease, hypertension, status post biventricular AICD. There is a history of anemia, osteoarthritis. She has never smoked. PAST SURGICAL HISTORY: Status post pacemaker, AICD, hysterectomy. ALLERGIES: No known drug allergies. CURRENT MEDICATION: List was reviewed. HOME MEDICATIONS: List was reviewed. REVIEW OF SYSTEMS: CONSTITUTIONAL: No fever or chills. EYES: No change in visual acuity. HEENT: No nasal congestion or sore throat. PULMONARY: As indicated above. CARDIOVASCULAR: No chest pain. No pressure. GASTROINTESTINAL: No nausea, vomiting, diarrhea. GENITOURINARY: No dysuria or frequency. MUSCULOSKELETAL: No localized muscle aches or joint pains. SKIN: No new skin lesions. NEUROLOGIC: No headaches, diplopia or blurred vision. PHYSICAL EXAMINATION: VITAL SIGNS: The patient was in no significant respiratory distress on room air saturation 95%. HEENT: Eyes, the sclerae were nonicteric. NECK: Jugular venous distention was not elevated. No lymphadenopathy. CHEST: Full expansion. LUNGS: Crackles with mild expiratory wheeze. CARDIOVASCULAR: Regular rate and rhythm with S1, S2, no S3. ABDOMEN: Soft, nontender, nondistended. EXTREMITIES: No clubbing, cyanosis, some edema. LABORATORY DATA: White count was normal. Electrolytes were noted. BUN and creatinine were elevated. UA was noted. Chest x-ray as indicated above. IMPRESSION: 1. Progressive dyspnea, multifactorial secondary to acute on chronic systolic heart failure. 2. Acute on chronic systolic heart failure. 3. Abnormal x-ray revealing bilateral effusions. 4. Elevated troponin. 5. History of ventricular tachycardia, ventricular fibrillation, on amiodarone. PLAN: 1. Instructed the patient to monitor her sodium intake. 2. IV Lasix. 3. No need for thoracentesis at this time. 4. Discontinue antibiotics. No clinical evidence or presentation of infectious etiology for the patient's presentation. 5. Treat pleurisy with nonsteroidals. 6. Follow Cardiology and Nephrology input. I do appreciate the privilege in sharing this patient's care. ESTEPHANIE SCHULZ MD DR: SUDHA/saba JOB#: [id number] / [id number]
--- NOTE | 2018-07-01 08:13 | RAD ---
Portable chest, 07/01/2018: HISTORY: Shortness of breath, congestive heart failure Comparison is made to a study from 06/29/2018. A left-sided transvenous pacing device remains in place with 3 leads extending into the heart. The heart is markedly enlarged. The pulmonary vascularity is within normal limits. There are mild persistent streaky opacities in the right base which are slightly improved. No new pulmonary abnormality is seen. No definite pleural fluid is evident. The bony structures are demineralized. Moderate arthritic changes are present at both shoulders. IMPRESSION: 1. Severe cardiomegaly. 2. Slightly improved mild streaky right basilar atelectasis/infiltrate. Electronically signed by: Erich Mitchell MD (07/01/2018 8:09 AM) [facility]
[2018-07-01] MEDS: HEPARIN for SUB-Q USE 5,000 UNIT/ML VIAL. SQ SCH (08:16)
--- NOTE | 2018-07-01 08:17 | PDOC ---
PROGRESS NOTES Chief Complaint Chief Complaint Acute on chronic systolic and diastolic heart failure in the setting of ischemic cardiomyopathy. EF 15% - likely set off by pneumonia.appreciate automotive service consultant recommendations, sees Dr. Dorman outpatient Right pleural effusion - follow pulmonary software consultant recommendations. Multifocal pneumonia - will cont rocephin + doxycycline. History of ventricular tachycardia/ventricular fibrillation status post Bi-V implantable cardioverter-defibrillator. Constipation - will continue bowel regimen. LAM on CKD3, vasomotor and possible component of cardiorenal syndrome in her. Nephrology to see her. She just established outpatient, she thinks with Dr. White copd - only slight wheezes, will give prn nebs. Consult pulm for pleural effusion FEN - Cardiac diet. 2L fluid restriction PPX - heparin BID FULL CODE Inpatient for CHF exacerbation likely set off by a community acquired pneumonia , will be inpatient at least 2 midnights. History of Present Illness History of Present Illness Patient medically stable. The patient continues to do well and is recovering satisfactorily from her acute illness. CXR - 1. Severe cardiomegaly. 2. Slightly improved mild streaky right basilar atelectasis/infiltrate. ECHO - Left ventricle systolic function is severely impaired. The Ejection Fraction is 10-15%. There is severe global hypokinesis of the left ventricle. There is a pacemaker/ICD lead in the right ventricle. Doppler and Color Flow revealed mild to moderate tricuspid regurgitation. There is moderate pulmonary hypertension. The PA pressure was estimated at 52 mmHg. The IVC is dilated and collapses <50% with inspiration. Hopefully will be able to dismiss soon from the hospital setting Needs BID lasix dosing at home now Vitals Vitals Vital Signs Date Time Temp Pulse Resp B/P (MAP) Pulse Ox O2 Delivery O2 Flow Rate FiO2 07/01/18 03:00 97.7 60 17 106/63 (77) 98 Room Air 97.7 Physical Exam General: Alert, Oriented X3, Cooperative, No acute distress Heart: Regular rate, Other (3/6 systolic murmur to LLS border) Lungs: Clear Abdomen: Soft, No tenderness Extremities: No cyanosis, Other (3+ bilateral LE pitting edema) Skin: No breakdown, No significant lesion Labs LABS Laboratory Tests Test 06/30/18 09:48 07/01/18 03:05 White Blood Count 5.3 x10^3/uL (4.0-11.0) 4.4 x10^3/uL (4.0-11.0) Red Blood Count 5.20 x10^6/uL (3.50-5.40) 5.08 x10^6/uL (3.50-5.40) Hemoglobin 14.5 g/dL (12.0-15.5) 13.8 g/dL (12.0-15.5) Hematocrit 45.4 % (36.0-47.0) 44.1 % (36.0-47.0) Mean Corpuscular Volume 87 fL (79-100) 87 fL (79-100) Mean Corpuscular Hemoglobin 28 pg (25-35) 27 pg (25-35) Mean Corpuscular Hemoglobin Concent 32 g/dL (31-37) 31 g/dL (31-37) Red Cell Distribution Width 16.6 % (11.5-14.5) 16.8 % (11.5-14.5) Platelet Count 122 x10^3/uL (140-400) 115 x10^3/uL (140-400) Neutrophils (%) (Auto) 77 % (31-73) 64 % (31-73) Lymphocytes (%) (Auto) 11 % (24-48) 19 % (24-48) Monocytes (%) (Auto) 10 % (0-9) 15 % (0-9) Eosinophils (%) (Auto) 1 % (0-3) 3 % (0-3) Basophils (%) (Auto) 1 % (0-3) 0 % (0-3) Neutrophils # (Auto) 4.1 x10^3uL (1.8-7.7) 2.8 x10^3uL (1.8-7.7) Lymphocytes # (Auto) 0.6 x10^3/uL (1.0-4.8) 0.8 x10^3/uL (1.0-4.8) Monocytes # (Auto) 0.5 x10^3/uL (0.0-1.1) 0.6 x10^3/uL (0.0-1.1) Eosinophils # (Auto) 0.1 x10^3/uL (0.0-0.7) 0.1 x10^3/uL (0.0-0.7) Basophils # (Auto) 0.0 x10^3/uL (0.0-0.2) 0.0 x10^3/uL (0.0-0.2) Sodium Level 143 mmol/L (136-145) 144 mmol/L (136-145) Potassium Level 3.5 mmol/L (3.5-5.1) 4.2 mmol/L (3.5-5.1) Chloride Level 103 mmol/L (98-107) 106 mmol/L (98-107) Carbon Dioxide Level 28 mmol/L (21-32) 29 mmol/L (21-32) Anion Gap 12 (6-14) 9 (6-14) Blood Urea Nitrogen 51 mg/dL (7-20) 49 mg/dL (7-20) Creatinine 1.9 mg/dL (0.6-1.0) 1.9 mg/dL (0.6-1.0) Estimated GFR (Cockcroft-Gault) 30.5 30.5 Glucose Level 171 mg/dL (70-99) 92 mg/dL (70-99) Calcium Level 9.9 mg/dL (8.5-10.1) 9.2 mg/dL (8.5-10.1) Thyroid Stimulating Hormone (TSH) 2.507 uIU/mL (0.358-3.74) Magnesium Level 2.2 mg/dL (1.8-2.4) Assessment and Plan Assessmemt and Plan Problems Medical Problems: (1) Acute pulmonary edema Status: Acute (2) CAP (community acquired pneumonia) Status: Acute (3) CHF (congestive heart failure) Status: Acute Comment Review of Relevant I have reviewed the following items rufino (where applicable) has been applied. Labs Laboratory Tests Test 06/29/18 13:40 06/29/18 13:50 06/29/18 14:50 06/30/18 09:48 Urine Color Lily Urine Clarity Cloudy Urine pH 5.5 Urine Specific Cooter 1.015 Urine Protein 30 mg/dL (NEG-TRACE) Urine Glucose (UA) Negative mg/dL (NEG) Urine Ketones (Stick) Negative mg/dL (NEG) Urine Blood Negative (NEG) Urine Nitrite Negative (NEG) Urine Bilirubin Negative (NEG) Urine Urobilinogen Dipstick 1.0 mg/dL (0.2 mg/dL) Urine Leukocyte Esterase Trace (NEG) Urine RBC 0 /HPF (0-2) Urine WBC Occ /HPF (0-4) Urine Squamous Epithelial Cells Occ /LPF Urine Bacteria 0 /HPF (0-FEW) Urine Hyaline Casts Few /HPF White Blood Count 5.5 x10^3/uL (4.0-11.0) 5.3 x10^3/uL (4.0-11.0) Red Blood Count 5.33 x10^6/uL (3.50-5.40) 5.20 x10^6/uL (3.50-5.40) Hemoglobin 14.9 g/dL (12.0-15.5) 14.5 g/dL (12.0-15.5) Hematocrit 46.7 % (36.0-47.0) 45.4 % (36.0-47.0) Mean Corpuscular Volume 88 fL (79-100) 87 fL (79-100) Mean Corpuscular Hemoglobin 28 pg (25-35) 28 pg (25-35) Mean Corpuscular Hemoglobin Concent 32 g/dL (31-37) 32 g/dL (31-37) Red Cell Distribution Width 17.0 % (11.5-14.5) 16.6 % (11.5-14.5) Platelet Count 113 x10^3/uL (140-400) 122 x10^3/uL (140-400) Neutrophils (%) (Auto) 78 % (31-73) 77 % (31-73) Lymphocytes (%) (Auto) 10 % (24-48) 11 % (24-48) Monocytes (%) (Auto) 11 % (0-9) 10 % (0-9) Eosinophils (%) (Auto) 1 % (0-3) 1 % (0-3) Basophils (%) (Auto) 1 % (0-3) 1 % (0-3) Neutrophils # (Auto) 4.3 x10^3uL (1.8-7.7) 4.1 x10^3uL (1.8-7.7) Lymphocytes # (Auto) 0.5 x10^3/uL (1.0-4.8) 0.6 x10^3/uL (1.0-4.8) Monocytes # (Auto) 0.6 x10^3/uL (0.0-1.1) 0.5 x10^3/uL (0.0-1.1) Eosinophils # (Auto) 0.0 x10^3/uL (0.0-0.7) 0.1 x10^3/uL (0.0-0.7) Basophils # (Auto) 0.0 x10^3/uL (0.0-0.2) 0.0 x10^3/uL (0.0-0.2) Platelet Estimate Decreased (ADEQUATE) Large Platelets Occ Giant Platelets Present Ovalocytes Occ Schistocytes Occ RBC Morphology Bizarre Forms Occ Sodium Level 143 mmol/L (136-145) 143 mmol/L (136-145) Potassium Level 4.0 mmol/L (3.5-5.1) 3.5 mmol/L (3.5-5.1) Chloride Level 102 mmol/L (98-107) 103 mmol/L (98-107) Carbon Dioxide Level 28 mmol/L (21-32) 28 mmol/L (21-32) Anion Gap 13 (6-14) 12 (6-14) Blood Urea Nitrogen 56 mg/dL (7-20) 51 mg/dL (7-20) Creatinine 2.2 mg/dL (0.6-1.0) 1.9 mg/dL (0.6-1.0) Estimated GFR (Cockcroft-Gault) 25.7 30.5 BUN/Creatinine Ratio 25 (6-20) Glucose Level 164 mg/dL (70-99) 171 mg/dL (70-99) Calcium Level 10.0 mg/dL (8.5-10.1) 9.9 mg/dL (8.5-10.1) Total Bilirubin 2.0 mg/dL (0.2-1.0) Aspartate Amino Transf (AST/SGOT) 31 U/L (15-37) Alanine Aminotransferase (ALT/SGPT) 26 U/L (14-59) Alkaline Phosphatase 113 U/L (46-116) Creatine Kinase 71 U/L (26-192) Creatine Kinase MB (Mass) 1.0 ng/mL (0.0-3.6) Creatine Kinase MB Relative Index % (0-4) Troponin I Quantitative 0.184 ng/mL (0.000-0.055) GJ-Lnv-I-Type Natriuretic Peptide 76636 pg/mL (0-449) Total Protein 6.4 g/dL (6.4-8.2) Albumin 3.3 g/dL (3.4-5.0) Albumin/Globulin Ratio 1.1 (1.0-1.7) Lactic Acid Level 1.7 mmol/L (0.4-2.0) Thyroid Stimulating Hormone (TSH) 2.507 uIU/mL (0.358-3.74) Test 07/01/18 03:05 White Blood Count 4.4 x10^3/uL (4.0-11.0) Red Blood Count 5.08 x10^6/uL (3.50-5.40) Hemoglobin 13.8 g/dL (12.0-15.5) Hematocrit 44.1 % (36.0-47.0) Mean Corpuscular Volume 87 fL (79-100) Mean Corpuscular Hemoglobin 27 pg (25-35) Mean Corpuscular Hemoglobin Concent 31 g/dL (31-37) Red Cell Distribution Width 16.8 % (11.5-14.5) Platelet Count 115 x10^3/uL (140-400) Neutrophils (%) (Auto) 64 % (31-73) Lymphocytes (%) (Auto) 19 % (24-48) Monocytes (%) (Auto) 15 % (0-9) Eosinophils (%) (Auto) 3 % (0-3) Basophils (%) (Auto) 0 % (0-3) Neutrophils # (Auto) 2.8 x10^3uL (1.8-7.7) Lymphocytes # (Auto) 0.8 x10^3/uL (1.0-4.8) Monocytes # (Auto) 0.6 x10^3/uL (0.0-1.1) Eosinophils # (Auto) 0.1 x10^3/uL (0.0-0.7) Basophils # (Auto) 0.0 x10^3/uL (0.0-0.2) Sodium Level 144 mmol/L (136-145) Potassium Level 4.2 mmol/L (3.5-5.1) Chloride Level 106 mmol/L (98-107) Carbon Dioxide Level 29 mmol/L (21-32) Anion Gap 9 (6-14) Blood Urea Nitrogen 49 mg/dL (7-20) Creatinine 1.9 mg/dL (0.6-1.0) Estimated GFR (Cockcroft-Gault) 30.5 Glucose Level 92 mg/dL (70-99) Calcium Level 9.2 mg/dL (8.5-10.1) Magnesium Level 2.2 mg/dL (1.8-2.4) Laboratory Tests Test 06/30/18 09:48 07/01/18 03:05 White Blood Count 5.3 x10^3/uL (4.0-11.0) 4.4 x10^3/uL (4.0-11.0) Red Blood Count 5.20 x10^6/uL (3.50-5.40) 5.08 x10^6/uL (3.50-5.40) Hemoglobin 14.5 g/dL (12.0-15.5) 13.8 g/dL (12.0-15.5) Hematocrit 45.4 % (36.0-47.0) 44.1 % (36.0-47.0) Mean Corpuscular Volume 87 fL (79-100) 87 fL (79-100) Mean Corpuscular Hemoglobin 28 pg (25-35) 27 pg (25-35) Mean Corpuscular Hemoglobin Concent 32 g/dL (31-37) 31 g/dL (31-37) Red Cell Distribution Width 16.6 % (11.5-14.5) 16.8 % (11.5-14.5) Platelet Count 122 x10^3/uL (140-400) 115 x10^3/uL (140-400) Neutrophils (%) (Auto) 77 % (31-73) 64 % (31-73) Lymphocytes (%) (Auto) 11 % (24-48) 19 % (24-48) Monocytes (%) (Auto) 10 % (0-9) 15 % (0-9) Eosinophils (%) (Auto) 1 % (0-3) 3 % (0-3) Basophils (%) (Auto) 1 % (0-3) 0 % (0-3) Neutrophils # (Auto) 4.1 x10^3uL (1.8-7.7) 2.8 x10^3uL (1.8-7.7) Lymphocytes # (Auto) 0.6 x10^3/uL (1.0-4.8) 0.8 x10^3/uL (1.0-4.8) Monocytes # (Auto) 0.5 x10^3/uL (0.0-1.1) 0.6 x10^3/uL (0.0-1.1) Eosinophils # (Auto) 0.1 x10^3/uL (0.0-0.7) 0.1 x10^3/uL (0.0-0.7) Basophils # (Auto) 0.0 x10^3/uL (0.0-0.2) 0.0 x10^3/uL (0.0-0.2) Sodium Level 143 mmol/L (136-145) 144 mmol/L (136-145) Potassium Level 3.5 mmol/L (3.5-5.1) 4.2 mmol/L (3.5-5.1) Chloride Level 103 mmol/L (98-107) 106 mmol/L (98-107) Carbon Dioxide Level 28 mmol/L (21-32) 29 mmol/L (21-32) Anion Gap 12 (6-14) 9 (6-14) Blood Urea Nitrogen 51 mg/dL (7-20) 49 mg/dL (7-20) Creatinine 1.9 mg/dL (0.6-1.0) 1.9 mg/dL (0.6-1.0) Estimated GFR (Cockcroft-Gault) 30.5 30.5 Glucose Level 171 mg/dL (70-99) 92 mg/dL (70-99) Calcium Level 9.9 mg/dL (8.5-10.1) 9.2 mg/dL (8.5-10.1) Thyroid Stimulating Hormone (TSH) 2.507 uIU/mL (0.358-3.74) Magnesium Level 2.2 mg/dL (1.8-2.4) Microbiology 06/29/18 Blood Culture - Preliminary, Resulted NO GROWTH AFTER 1 DAY Medications Current Medications Ceftriaxone Sodium (Rocephin) 1 gm 1X ONCE IVP Last administered on 06/29/18 15:33; Start 06/29/18 at 15:15; Stop 06/29/18 at 15:17; Status DC Azithromycin (Zithromax) 500 mg 1X ONCE PO Last administered on 06/29/18 15:30 ; Start 06/29/18 at 15:15; Stop 06/29/18 at 15:17; Status DC Acetaminophen/ Hydrocodone Bitart (Lortab 5/325) 1 tab 1X ONCE PO Last administered on 06/29/18 15:31; Start 06/29/18 at 15:15; Stop 06/29/18 at 15:17; Status DC Azithromycin (Zithromax) 250 mg STK-MED ONCE .ROUTE ; Start 06/29/18 at 15:25; Stop 06/29/18 at 15:26; Status DC Amiodarone HCl (Cordarone) 200 mg DAILY PO Last administered on 06/30/18 08:55 ; Start 06/30/18 at 09:00 Aspirin (Children'S Aspirin) 81 mg DAILY PO Last administered on 06/30/18 08:55 ; Start 06/30/18 at 09:00 Carvedilol (Coreg) 6.25 mg BIDWMEALS PO Last administered on 06/30/18 08:56; Start 06/29/18 at 17:00 Simvastatin (Zocor) 20 mg HS PO Last administered on 06/30/18 21:13; Start 06/29 at 21:00 Ondansetron HCl (Zofran) 4 mg PRN Q6HRS PRN IV NAUSEA/VOMITING; Start 06/29/18 at 16:15 Acetaminophen (Tylenol) 650 mg PRN Q6HRS PRN PO Headaches, Temp > 101.5F; Start 06/29/18 at 16:15 Senna/Docusate Sodium (Senna Plus) 1 tab BID PO Last administered on 06/30/18 21:13; Start 06/29/18 at 21:00 Lactulose (Lactulose) 20 gm PRN Q12HR PRN PO CONSTIPATION; Start 06/29/18 at 16: 15 Heparin Sodium (Porcine) (Heparin Sodium) 5,000 unit Q12HR SQ Last administered on 06/30/18 21:17; Start 06/29/18 at 21:00 Furosemide (Lasix) 40 mg BID92 IVP Last administered on 06/30/18at 15:37; Start 06/29/18 at 17:00 Ceftriaxone Sodium (Rocephin) 1 gm Q24H IVP ; Start 06/30/18 at 15:00; Stop at 16:56; Status DC Doxycycline Hyclate 100 mg/ Dextrose 100 ml @ 50 mls/hr BID IV Last administered on 06/30/18at 08:56; Start 06/29/18 at 17:00; Stop 06/30/18 at 16:56; Status DC Polyethylene Glycol (miraLAX PACKET) 17 gm DAILY PO Last administered on at 08:56; Start 06/30/18 at 09:00 Psyllium Hydrophilic Mucilloid (Metamucil Fiber Packet) 1 pkt DAILY PO ; Start 06/29/18 at 21:00 Cyanocobalamin (Vitamin B-12) 1,000 mcg 1X ONCE IM Last administered on at 00:25; Start 06/29/18 at 16:45; Stop 06/29/18 at 16:46; Status DC Lactobacillus Rhamnosus (Culturelle) 1 cap BID PO Last administered on at 21:13; Start 06/30/18 at 21:00 Potassium Chloride (Klor-Con) 40 meq 1X ONCE PO Last administered on 06/30/18at 15:37; Start 06/30/18 at 14:00; Stop 06/30/18 at 14:01; Status DC Active Scripts Active Amiodarone Hcl 200 Mg Tablet 200 Mg PO DAILY 30 Days Reported Furosemide 20 Mg Tablet 1 Tab PO DAILY Potassium Chloride 20 Meq Tablet.er 20 Meq PO DAILY Carvedilol (Carvedilol) 6.25 Mg Tablet 1 Tab PO BID Multivitamins (Multivitamin) 1 Each Tablet 1 Each PO Simvastatin 20 Mg Tablet 20 Mg PO HS Aspirin 81 Mg Tab.chew 81 Mg PO Vitals/I & O Vital Sign - Last 24 Hours 06/30/18 06/30/18 06/30/18 06/30/18 08:55 08:56 11:00 15:00 Temp 97.4 98.1 97.4 98.1 Pulse 62 62 67 60 Resp 17 17 B/P (MAP) 117/60 117/60 99/60 (73) 106/58 (74) Pulse Ox 98 95 O2 Delivery Room Air Room Air 06/30/18 06/30/18 06/30/18 06/30/18 17:00 19:00 20:00 23:00 Temp 97.9 97.9 Pulse 60 68 Resp 17 B/P (MAP) 106/58 90/63 (72) Pulse Ox 97 O2 Delivery Room Air Room Air 07/01/18 03:00 Temp 97.7 97.7 Pulse 60 Resp 17 B/P (MAP) 106/63 (77) Pulse Ox 98 O2 Delivery Room Air Intake and Output 06/30/18 06/30/18 07/01/18 14:59 22:59 06:59 Intake Total 380 ml 260 ml 260 ml Balance 380 ml 260 ml 260 ml HIPOLITO PHILLIPS MD Jul 01, 2018 08:17
[2018-07-01] MEDS ORDERED: TRAM50TA PO (09:15)
[2018-07-01] MEDS ORDERED: FURO40TA4 PO (09:18)
--- NOTE | 2018-07-01 09:20 | SNU/HH DC ---
DISCHARGE WITH HOME HEALTH DISCHARGE INFORMATION: Discharge Date: Jul 01, 2018 Final Diagnosis: Problems Medical Problems: (1) Acute pulmonary edema Status: Acute (2) CAP (community acquired pneumonia) Status: Acute (3) CHF (congestive heart failure) Status: Acute Condition on Discharge: Stable CODE STATUS: Code Status: Full HOME HEALTH: Face to Face: I certify this patient is under my care and that I, or a nurse practitioner or physician's assistant professor of education working with me, had a face to face encounter that meets the physician face to face encounter requirements with this patient on 07/01/18. Medical Complications: CHF [facility] For: Assess Cardiopulm Status, Medication Management, Pain Management Physical Therapy For: Evalulation/Treatment Occupational Therapy For: Evaluation/Treatment Home Health Aide For: Self-care Pt Meets Homebound Status: Limited distance walking POST DISCHARGE ORDERS: Activity Instructions for Disc: Activity as tolerated Weight Bearing Status after Di: As tolerated DIET AFTER DISCHARGE: Cardiac CHECKS AFTER DISCHARGE: Checks after discharge: Check blood press - daily, Weigh Yourself Daily (More than 3# change call CARDIOLOGY) FOLLOW-UP: Follow up with: Dr. Toussaint - Cardiology - within 30 days Follow Up With: PCP 1 week CERTIFICATION STATEMENT: Certification Statement: Certification Statement: Based on the above finding, I certify that this patient is confined to the home and needs intermittent intermediate care, physical therapy and/or speech therapy, or continues to need occupational therapy.~ This patient is under my care, and I have initiated the establishment of the plan of care.~ This patient will be followed by myself or a community physician who will periodically review the plan of care. Home Meds Active Scripts Furosemide (FUROSEMIDE) 40 Mg Tablet, 40 MG PO BID for CHF for 30 Days, #60 TAB Prov:HIPOLITO PHILLIPS MD 07/01/18 Tramadol Hcl (TRAMADOL HCL) 50 Mg Tablet, 50 MG PO PRN Q6-8HRS PRN for PAIN for 6 Days, #18 TAB Prov:HIPOLITO PHILLIPS MD 07/01/18 Amiodarone Hcl (AMIODARONE HCL) 200 Mg Tablet, 200 MG PO DAILY for 30 Days, #30 TAB 6 Refills Prov:RAFITA GOODMAN MD 12/31/16 Reported Medications Potassium Chloride (POTASSIUM CHLORIDE) 20 Meq Tablet.er, 20 MEQ PO DAILY, TAB.SR 01/23/18 Carvedilol (CARVEDILOL ) 6.25 Mg Tablet, 1 TAB PO BID, #180 TAB 1 Refill 01/22/18 Multivitamin (MULTIVITAMINS) 1 Each Tablet, 1 EACH PO, TAB 12/29/16 Simvastatin (SIMVASTATIN) 20 Mg Tablet, 20 MG PO HS for FOR CHOLESTEROL, #30 TAB 0 Refills 10/06/16 Aspirin (ASPIRIN) 81 Mg Tab.chew, 81 MG PO, TAB.CHEW 10/06/16 Discontinued Reported Medications Furosemide (FUROSEMIDE) 20 Mg Tablet, 1 TAB PO DAILY, #90 TAB 1 Refill 01/23/18 RIFFEHIPOLITO Norman MD Jul 01, 2018 09:20
--- NOTE | 2018-07-01 09:24 | PDOC3 ---
Discharge Summary Visit Information Date of Admission: Jun 29, 2018 Date of Discharge: Jul 01, 2018 Admitting Diagnosis: Acute CHF exacerbation Final Diagnosis Problems Medical Problems: (1) Acute pulmonary edema Status: Acute (2) CAP (community acquired pneumonia) Status: Acute (3) CHF (congestive heart failure) Status: Acute Brief Hospital Course Allergies Allergies Coded Allergies Type Severity Reaction Last Updated Verified No Known Drug Allergies 10/06/16 No Vital Signs Vital Signs Date Time Temp Pulse Resp B/P (MAP) Pulse Ox O2 Delivery O2 Flow Rate FiO2 07/01/18 08:01 67 105/70 07/01/18 07:00 97.6 17 98 Room Air 97.6 Lab Results Laboratory Tests Test 06/29/18 13:40 06/29/18 13:50 06/29/18 14:50 06/30/18 09:48 Urine Color Lily Urine Clarity Cloudy Urine pH 5.5 Urine Specific [place] 1.015 Urine Protein 30 mg/dL (NEG-TRACE) Urine Glucose (UA) Negative mg/dL (NEG) Urine Ketones (Stick) Negative mg/dL (NEG) Urine Blood Negative (NEG) Urine Nitrite Negative (NEG) Urine Bilirubin Negative (NEG) Urine Urobilinogen Dipstick 1.0 mg/dL (0.2 mg/dL) Urine Leukocyte Esterase Trace (NEG) Urine RBC 0 /HPF (0-2) Urine WBC Occ /HPF (0-4) Urine Squamous Epithelial Cells Occ /LPF Urine Bacteria 0 /HPF (0-FEW) Urine Hyaline Casts Few /HPF White Blood Count 5.5 x10^3/uL (4.0-11.0) 5.3 x10^3/uL (4.0-11.0) Red Blood Count 5.33 x10^6/uL (3.50-5.40) 5.20 x10^6/uL (3.50-5.40) Hemoglobin 14.9 g/dL (12.0-15.5) 14.5 g/dL (12.0-15.5) Hematocrit 46.7 % (36.0-47.0) 45.4 % (36.0-47.0) Mean Corpuscular Volume 88 fL (79-100) 87 fL (79-100) Mean Corpuscular Hemoglobin 28 pg (25-35) 28 pg (25-35) Mean Corpuscular Hemoglobin Concent 32 g/dL (31-37) 32 g/dL (31-37) Red Cell Distribution Width 17.0 % (11.5-14.5) 16.6 % (11.5-14.5) Platelet Count 113 x10^3/uL (140-400) 122 x10^3/uL (140-400) Neutrophils (%) (Auto) 78 % (31-73) 77 % (31-73) Lymphocytes (%) (Auto) 10 % (24-48) 11 % (24-48) Monocytes (%) (Auto) 11 % (0-9) 10 % (0-9) Eosinophils (%) (Auto) 1 % (0-3) 1 % (0-3) Basophils (%) (Auto) 1 % (0-3) 1 % (0-3) Neutrophils # (Auto) 4.3 x10^3uL (1.8-7.7) 4.1 x10^3uL (1.8-7.7) Lymphocytes # (Auto) 0.5 x10^3/uL (1.0-4.8) 0.6 x10^3/uL (1.0-4.8) Monocytes # (Auto) 0.6 x10^3/uL (0.0-1.1) 0.5 x10^3/uL (0.0-1.1) Eosinophils # (Auto) 0.0 x10^3/uL (0.0-0.7) 0.1 x10^3/uL (0.0-0.7) Basophils # (Auto) 0.0 x10^3/uL (0.0-0.2) 0.0 x10^3/uL (0.0-0.2) Platelet Estimate Decreased (ADEQUATE) Large Platelets Occ Giant Platelets Present Ovalocytes Occ Schistocytes Occ RBC Morphology Bizarre Forms Occ Sodium Level 143 mmol/L (136-145) 143 mmol/L (136-145) Potassium Level 4.0 mmol/L (3.5-5.1) 3.5 mmol/L (3.5-5.1) Chloride Level 102 mmol/L (98-107) 103 mmol/L (98-107) Carbon Dioxide Level 28 mmol/L (21-32) 28 mmol/L (21-32) Anion Gap 13 (6-14) 12 (6-14) Blood Urea Nitrogen 56 mg/dL (7-20) 51 mg/dL (7-20) Creatinine 2.2 mg/dL (0.6-1.0) 1.9 mg/dL (0.6-1.0) Estimated GFR (Cockcroft-Gault) 25.7 30.5 BUN/Creatinine Ratio 25 (6-20) Glucose Level 164 mg/dL (70-99) 171 mg/dL (70-99) Calcium Level 10.0 mg/dL (8.5-10.1) 9.9 mg/dL (8.5-10.1) Total Bilirubin 2.0 mg/dL (0.2-1.0) Aspartate Amino Transf (AST/SGOT) 31 U/L (15-37) Alanine Aminotransferase (ALT/SGPT) 26 U/L (14-59) Alkaline Phosphatase 113 U/L (46-116) Creatine Kinase 71 U/L (26-192) Creatine Kinase MB (Mass) 1.0 ng/mL (0.0-3.6) Creatine Kinase MB Relative Index % (0-4) Troponin I Quantitative 0.184 ng/mL (0.000-0.055) MU-Pxe-S-Type Natriuretic Peptide 24169 pg/mL (0-449) Total Protein 6.4 g/dL (6.4-8.2) Albumin 3.3 g/dL (3.4-5.0) Albumin/Globulin Ratio 1.1 (1.0-1.7) Lactic Acid Level 1.7 mmol/L (0.4-2.0) Thyroid Stimulating Hormone (TSH) 2.507 uIU/mL (0.358-3.74) Test 07/01/18 03:05 White Blood Count 4.4 x10^3/uL (4.0-11.0) Red Blood Count 5.08 x10^6/uL (3.50-5.40) Hemoglobin 13.8 g/dL (12.0-15.5) Hematocrit 44.1 % (36.0-47.0) Mean Corpuscular Volume 87 fL (79-100) Mean Corpuscular Hemoglobin 27 pg (25-35) Mean Corpuscular Hemoglobin Concent 31 g/dL (31-37) Red Cell Distribution Width 16.8 % (11.5-14.5) Platelet Count 115 x10^3/uL (140-400) Neutrophils (%) (Auto) 64 % (31-73) Lymphocytes (%) (Auto) 19 % (24-48) Monocytes (%) (Auto) 15 % (0-9) Eosinophils (%) (Auto) 3 % (0-3) Basophils (%) (Auto) 0 % (0-3) Neutrophils # (Auto) 2.8 x10^3uL (1.8-7.7) Lymphocytes # (Auto) 0.8 x10^3/uL (1.0-4.8) Monocytes # (Auto) 0.6 x10^3/uL (0.0-1.1) Eosinophils # (Auto) 0.1 x10^3/uL (0.0-0.7) Basophils # (Auto) 0.0 x10^3/uL (0.0-0.2) Sodium Level 144 mmol/L (136-145) Potassium Level 4.2 mmol/L (3.5-5.1) Chloride Level 106 mmol/L (98-107) Carbon Dioxide Level 29 mmol/L (21-32) Anion Gap 9 (6-14) Blood Urea Nitrogen 49 mg/dL (7-20) Creatinine 1.9 mg/dL (0.6-1.0) Estimated GFR (Cockcroft-Gault) 30.5 Glucose Level 92 mg/dL (70-99) Calcium Level 9.2 mg/dL (8.5-10.1) Magnesium Level 2.2 mg/dL (1.8-2.4) Laboratory Tests Test 06/30/18 09:48 07/01/18 03:05 White Blood Count 5.3 x10^3/uL (4.0-11.0) 4.4 x10^3/uL (4.0-11.0) Red Blood Count 5.20 x10^6/uL (3.50-5.40) 5.08 x10^6/uL (3.50-5.40) Hemoglobin 14.5 g/dL (12.0-15.5) 13.8 g/dL (12.0-15.5) Hematocrit 45.4 % (36.0-47.0) 44.1 % (36.0-47.0) Mean Corpuscular Volume 87 fL (79-100) 87 fL (79-100) Mean Corpuscular Hemoglobin 28 pg (25-35) 27 pg (25-35) Mean Corpuscular Hemoglobin Concent 32 g/dL (31-37) 31 g/dL (31-37) Red Cell Distribution Width 16.6 % (11.5-14.5) 16.8 % (11.5-14.5) Platelet Count 122 x10^3/uL (140-400) 115 x10^3/uL (140-400) Neutrophils (%) (Auto) 77 % (31-73) 64 % (31-73) Lymphocytes (%) (Auto) 11 % (24-48) 19 % (24-48) Monocytes (%) (Auto) 10 % (0-9) 15 % (0-9) Eosinophils (%) (Auto) 1 % (0-3) 3 % (0-3) Basophils (%) (Auto) 1 % (0-3) 0 % (0-3) Neutrophils # (Auto) 4.1 x10^3uL (1.8-7.7) 2.8 x10^3uL (1.8-7.7) Lymphocytes # (Auto) 0.6 x10^3/uL (1.0-4.8) 0.8 x10^3/uL (1.0-4.8) Monocytes # (Auto) 0.5 x10^3/uL (0.0-1.1) 0.6 x10^3/uL (0.0-1.1) Eosinophils # (Auto) 0.1 x10^3/uL (0.0-0.7) 0.1 x10^3/uL (0.0-0.7) Basophils # (Auto) 0.0 x10^3/uL (0.0-0.2) 0.0 x10^3/uL (0.0-0.2) Sodium Level 143 mmol/L (136-145) 144 mmol/L (136-145) Potassium Level 3.5 mmol/L (3.5-5.1) 4.2 mmol/L (3.5-5.1) Chloride Level 103 mmol/L (98-107) 106 mmol/L (98-107) Carbon Dioxide Level 28 mmol/L (21-32) 29 mmol/L (21-32) Anion Gap 12 (6-14) 9 (6-14) Blood Urea Nitrogen 51 mg/dL (7-20) 49 mg/dL (7-20) Creatinine 1.9 mg/dL (0.6-1.0) 1.9 mg/dL (0.6-1.0) Estimated GFR (Cockcroft-Gault) 30.5 30.5 Glucose Level 171 mg/dL (70-99) 92 mg/dL (70-99) Calcium Level 9.9 mg/dL (8.5-10.1) 9.2 mg/dL (8.5-10.1) Thyroid Stimulating Hormone (TSH) 2.507 uIU/mL (0.358-3.74) Magnesium Level 2.2 mg/dL (1.8-2.4) Brief Hospital Course Ms. Fay is a 83 year old female admitted with acute on chronic systolic and diastolic heart failure in the setting of ischemic cardiomyopathy. EF 15% - likely set off by pneumonia.appreciate actuarial consultant recommendations, sees Dr. Dorman outpatient. 40mg IV BID for 3 days of lasix helped Right pleural effusion - follow pulmonary wedding consultant recommendations. clearing up on CXR ?Multifocal pneumonia - off antibiotics, this was severe pulmonary congestion from CHF History of ventricular tachycardia/ventricular fibrillation status post Bi-V implantable cardioverter-defibrillator. Constipation - will continue bowel regimen. LAM on CKD3, vasomotor and possible component of cardiorenal syndrome in her. Nephrology to see her. She just established outpatient, she thinks with Dr. White copd - only slight wheezes, will give prn nebs. Consulted pulm for pleural effusion, this was all CHF FEN - Cardiac diet. 2L fluid restriction. Daily weights Patient medically stable. The patient continues to do well and is recovering satisfactorily from her acute illness. CXR - 1. Severe cardiomegaly. 2. Slightly improved mild streaky right basilar atelectasis/infiltrate. ECHO - Left ventricle systolic function is severely impaired. The Ejection Fraction is 10-15%. There is severe global hypokinesis of the left ventricle. There is a pacemaker/ICD lead in the right ventricle. Doppler and Color Flow revealed mild to moderate tricuspid regurgitation. There is moderate pulmonary hypertension. The PA pressure was estimated at 52 mmHg. The IVC is dilated and collapses <50% with inspiration. Needs BID lasix dosing at home now. F/u with Dr. Dorman and Dr. White Greater than 30 minutes of care spent on discharge including planning and home health establishment Discharge Information Condition at Discharge: Improved Follow Up: Weeks (2) Disposition/Orders: D/C to Home w/ HH Scheduled Amiodarone Hcl (Amiodarone Hcl) 200 Mg Tablet, 200 MG PO DAILY for 30 Days, #30 Ref 6 Prescribed by: RAFITA GOODMAN on 12/31/16 1653 Last Action: Continued on 06/29/181611 by HIPOLITO PHILLIPS MD Carvedilol (Carvedilol ) 6.25 Mg Tablet, 1 TAB PO BID, #180 Ref 1 (Reported) Entered as Reported by: LUCILLE BLAND on 01/22/18 2111 Last Action: Continued on 06/29/181611 by HIPOLITO PHILLIPS MD Furosemide (Furosemide) 40 Mg Tablet, 40 MG PO BID for CHF for 30 Days, #60 Prescribed by: HIPOLITO PHILLIPS MD on 07/01/18 0918 Potassium Chloride (Potassium Chloride) 20 Meq Tablet.er, 20 MEQ PO DAILY, ( Reported) Entered as Reported by: CLAIRE BARNES RN on 01/23/18 1336 Last Action: HELD on 06/29/181611 by HIPOLITO PHILLIPS MD Simvastatin (Simvastatin) 20 Mg Tablet, 20 MG PO HS for FOR CHOLESTEROL, #30 Ref 0 (Reported) Entered as Reported by: YUNG ROMANO on 10/06/16 0949 Last Action: Converted on 06/29/181611 by HIPOLITO PHILLIPS MD Scheduled PRN Tramadol Hcl (Tramadol Hcl) 50 Mg Tablet, 50 MG PO PRN Q6-8HRS PRN for PAIN for 6 Days, #18 Prescribed by: HIPOLITO PHILLIPS MD on 07/01/18 0915 Miscellaneous Medications Aspirin (Aspirin) 81 Mg Tab.chew, 81 MG PO, (Reported) Entered as Reported by: YUNG ROMANO on 10/06/16 0949 Last Action: Continued on 06/29/181611 by HIPOLITO PHILLIPS MD Multivitamin (Multivitamins) 1 Each Tablet, 1 EACH PO, (Reported) Entered as Reported by: ANANT VELASQUEZ on 12/29/16 1000 Last Action: HELD on 06/29/181611 by HIPOLITO PHILLIPS MD Discontinued Medications Furosemide (Furosemide) 20 Mg Tablet, 1 TAB PO DAILY, #90 Ref 1 (Reported) Discontinued Reason: Prescription changed Entered as Reported by: CLAIRE BARNES RN on 01/23/18 1336 Last Action: HELD on 06/29/181611 by MD ALAN FALL CHRISTOPHER S MD Jul 01, 2018 09:24
--- NOTE | 2018-07-01 10:12 | NUR ---
KYLE following ptMalissa Sinclair from [facility] will assist in setting up home health. RN notified.
--- NOTE | 2018-07-01 10:20 | PDOC ---
PULMONARY PROGRESS NOTES Subjective PT FEEL BETTER LESS SOA Vitals Vital Signs Date Time Temp Pulse Resp B/P (MAP) Pulse Ox O2 Delivery O2 Flow Rate FiO2 07/01/18 08:01 67 105/70 07/01/18 08:00 Room Air 07/01/18 07:00 97.6 17 98 97.6 ROS: No Nausea, No Chest Pain, No Increase Cough Lungs: Clear Cardiovascular: S1, S2 Abdomen: Soft Neuro Exam: Alert Extremities: No Edema Skin: Warm Labs Laboratory Tests Test 06/29/18 13:40 06/29/18 13:50 06/29/18 14:50 06/30/18 09:48 Urine Color Lily Urine Clarity Cloudy Urine pH 5.5 Urine Specific [place] 1.015 Urine Protein 30 mg/dL (NEG-TRACE) Urine Glucose (UA) Negative mg/dL (NEG) Urine Ketones (Stick) Negative mg/dL (NEG) Urine Blood Negative (NEG) Urine Nitrite Negative (NEG) Urine Bilirubin Negative (NEG) Urine Urobilinogen Dipstick 1.0 mg/dL (0.2 mg/dL) Urine Leukocyte Esterase Trace (NEG) Urine RBC 0 /HPF (0-2) Urine WBC Occ /HPF (0-4) Urine Squamous Epithelial Cells Occ /LPF Urine Bacteria 0 /HPF (0-FEW) Urine Hyaline Casts Few /HPF White Blood Count 5.5 x10^3/uL (4.0-11.0) 5.3 x10^3/uL (4.0-11.0) Red Blood Count 5.33 x10^6/uL (3.50-5.40) 5.20 x10^6/uL (3.50-5.40) Hemoglobin 14.9 g/dL (12.0-15.5) 14.5 g/dL (12.0-15.5) Hematocrit 46.7 % (36.0-47.0) 45.4 % (36.0-47.0) Mean Corpuscular Volume 88 fL (79-100) 87 fL (79-100) Mean Corpuscular Hemoglobin 28 pg (25-35) 28 pg (25-35) Mean Corpuscular Hemoglobin Concent 32 g/dL (31-37) 32 g/dL (31-37) Red Cell Distribution Width 17.0 % (11.5-14.5) 16.6 % (11.5-14.5) Platelet Count 113 x10^3/uL (140-400) 122 x10^3/uL (140-400) Neutrophils (%) (Auto) 78 % (31-73) 77 % (31-73) Lymphocytes (%) (Auto) 10 % (24-48) 11 % (24-48) Monocytes (%) (Auto) 11 % (0-9) 10 % (0-9) Eosinophils (%) (Auto) 1 % (0-3) 1 % (0-3) Basophils (%) (Auto) 1 % (0-3) 1 % (0-3) Neutrophils # (Auto) 4.3 x10^3uL (1.8-7.7) 4.1 x10^3uL (1.8-7.7) Lymphocytes # (Auto) 0.5 x10^3/uL (1.0-4.8) 0.6 x10^3/uL (1.0-4.8) Monocytes # (Auto) 0.6 x10^3/uL (0.0-1.1) 0.5 x10^3/uL (0.0-1.1) Eosinophils # (Auto) 0.0 x10^3/uL (0.0-0.7) 0.1 x10^3/uL (0.0-0.7) Basophils # (Auto) 0.0 x10^3/uL (0.0-0.2) 0.0 x10^3/uL (0.0-0.2) Platelet Estimate Decreased (ADEQUATE) Large Platelets Occ Giant Platelets Present Ovalocytes Occ Schistocytes Occ RBC Morphology Bizarre Forms Occ Sodium Level 143 mmol/L (136-145) 143 mmol/L (136-145) Potassium Level 4.0 mmol/L (3.5-5.1) 3.5 mmol/L (3.5-5.1) Chloride Level 102 mmol/L (98-107) 103 mmol/L (98-107) Carbon Dioxide Level 28 mmol/L (21-32) 28 mmol/L (21-32) Anion Gap 13 (6-14) 12 (6-14) Blood Urea Nitrogen 56 mg/dL (7-20) 51 mg/dL (7-20) Creatinine 2.2 mg/dL (0.6-1.0) 1.9 mg/dL (0.6-1.0) Estimated GFR (Cockcroft-Gault) 25.7 30.5 BUN/Creatinine Ratio 25 (6-20) Glucose Level 164 mg/dL (70-99) 171 mg/dL (70-99) Calcium Level 10.0 mg/dL (8.5-10.1) 9.9 mg/dL (8.5-10.1) Total Bilirubin 2.0 mg/dL (0.2-1.0) Aspartate Amino Transf (AST/SGOT) 31 U/L (15-37) Alanine Aminotransferase (ALT/SGPT) 26 U/L (14-59) Alkaline Phosphatase 113 U/L (46-116) Creatine Kinase 71 U/L (26-192) Creatine Kinase MB (Mass) 1.0 ng/mL (0.0-3.6) Creatine Kinase MB Relative Index % (0-4) Troponin I Quantitative 0.184 ng/mL (0.000-0.055) GW-Els-Y-Type Natriuretic Peptide 29755 pg/mL (0-449) Total Protein 6.4 g/dL (6.4-8.2) Albumin 3.3 g/dL (3.4-5.0) Albumin/Globulin Ratio 1.1 (1.0-1.7) Lactic Acid Level 1.7 mmol/L (0.4-2.0) Thyroid Stimulating Hormone (TSH) 2.507 uIU/mL (0.358-3.74) Test 07/01/18 03:05 White Blood Count 4.4 x10^3/uL (4.0-11.0) Red Blood Count 5.08 x10^6/uL (3.50-5.40) Hemoglobin 13.8 g/dL (12.0-15.5) Hematocrit 44.1 % (36.0-47.0) Mean Corpuscular Volume 87 fL (79-100) Mean Corpuscular Hemoglobin 27 pg (25-35) Mean Corpuscular Hemoglobin Concent 31 g/dL (31-37) Red Cell Distribution Width 16.8 % (11.5-14.5) Platelet Count 115 x10^3/uL (140-400) Neutrophils (%) (Auto) 64 % (31-73) Lymphocytes (%) (Auto) 19 % (24-48) Monocytes (%) (Auto) 15 % (0-9) Eosinophils (%) (Auto) 3 % (0-3) Basophils (%) (Auto) 0 % (0-3) Neutrophils # (Auto) 2.8 x10^3uL (1.8-7.7) Lymphocytes # (Auto) 0.8 x10^3/uL (1.0-4.8) Monocytes # (Auto) 0.6 x10^3/uL (0.0-1.1) Eosinophils # (Auto) 0.1 x10^3/uL (0.0-0.7) Basophils # (Auto) 0.0 x10^3/uL (0.0-0.2) Sodium Level 144 mmol/L (136-145) Potassium Level 4.2 mmol/L (3.5-5.1) Chloride Level 106 mmol/L (98-107) Carbon Dioxide Level 29 mmol/L (21-32) Anion Gap 9 (6-14) Blood Urea Nitrogen 49 mg/dL (7-20) Creatinine 1.9 mg/dL (0.6-1.0) Estimated GFR (Cockcroft-Gault) 30.5 Glucose Level 92 mg/dL (70-99) Calcium Level 9.2 mg/dL (8.5-10.1) Magnesium Level 2.2 mg/dL (1.8-2.4) Laboratory Tests Test 07/01/18 03:05 White Blood Count 4.4 x10^3/uL (4.0-11.0) Red Blood Count 5.08 x10^6/uL (3.50-5.40) Hemoglobin 13.8 g/dL (12.0-15.5) Hematocrit 44.1 % (36.0-47.0) Mean Corpuscular Volume 87 fL (79-100) Mean Corpuscular Hemoglobin 27 pg (25-35) Mean Corpuscular Hemoglobin Concent 31 g/dL (31-37) Red Cell Distribution Width 16.8 % (11.5-14.5) Platelet Count 115 x10^3/uL (140-400) Neutrophils (%) (Auto) 64 % (31-73) Lymphocytes (%) (Auto) 19 % (24-48) Monocytes (%) (Auto) 15 % (0-9) Eosinophils (%) (Auto) 3 % (0-3) Basophils (%) (Auto) 0 % (0-3) Neutrophils # (Auto) 2.8 x10^3uL (1.8-7.7) Lymphocytes # (Auto) 0.8 x10^3/uL (1.0-4.8) Monocytes # (Auto) 0.6 x10^3/uL (0.0-1.1) Eosinophils # (Auto) 0.1 x10^3/uL (0.0-0.7) Basophils # (Auto) 0.0 x10^3/uL (0.0-0.2) Sodium Level 144 mmol/L (136-145) Potassium Level 4.2 mmol/L (3.5-5.1) Chloride Level 106 mmol/L (98-107) Carbon Dioxide Level 29 mmol/L (21-32) Anion Gap 9 (6-14) Blood Urea Nitrogen 49 mg/dL (7-20) Creatinine 1.9 mg/dL (0.6-1.0) Estimated GFR (Cockcroft-Gault) 30.5 Glucose Level 92 mg/dL (70-99) Calcium Level 9.2 mg/dL (8.5-10.1) Magnesium Level 2.2 mg/dL (1.8-2.4) Medications Active Scripts Medications Dose Route/Sig Max Daily Dose Days Date Category Furosemide 20 Mg Tablet 1 Tab PO DAILY 01/23/18 Reported Potassium Chloride 20 Meq Tablet.er 20 Meq PO DAILY 01/23/18 Reported Carvedilol (Carvedilol) 6.25 Mg Tablet 1 Tab PO BID 01/22/18 Reported Amiodarone Hcl 200 Mg Tablet 200 Mg PO DAILY 30 12/31/16 Rx Multivitamins (Multivitamin) 1 Each Tablet 1 Each PO 12/29/16 Reported Simvastatin 20 Mg Tablet 20 Mg PO HS 10/06/16 Reported Aspirin 81 Mg Tab.chew 81 Mg PO 10/06/16 Reported Impression . IMPRESSION: 1. Progressive dyspnea, multifactorial secondary to acute on chronic systolic heart failure. 2. Acute on chronic systolic heart failure. 3. Abnormal x-ray revealing bilateral effusions. 4. Elevated troponin. 5. History of ventricular tachycardia, ventricular fibrillation, on amiodarone. Plan . BETTER TODAY WILL CONTINUE THE SAME 1. Instructed the patient to monitor her sodium intake. 2. IV Lasix. 3. No need for thoracentesis at this time. 4. Discontinue antibiotics. No clinical evidence or presentation of infectious etiology for the patient's presentation. 5. Treat pleurisy with nonsteroidals. 6. Follow Cardiology and Nephrology input. ESTEPHANIE SCHULZ MD Jul 01, 2018 10:20
[2018-07-01 11:00] VITALS: BP 104/66
--- NOTE | 2018-07-01 11:55 | PDOC ---
SUBJECTIVE ROS Pt states feeling better , feels LE edema improved OBJECTIVE Vital Signs Vital Signs Date Time Temp Pulse Resp B/P (MAP) Pulse Ox O2 Delivery O2 Flow Rate FiO2 07/01/18 11:00 97.4 70 18 104/66 (79) 99 Room Air 97.4 I & 0 Intake and Output 07/01/18 07:00 Intake Total 900 ml Balance 900 ml Intake Oral 800 ml IV Total 100 ml # Voids 7 # Bowel Movements 3 PHYSICAL EXAM Physical Exam General: No acute distress HEENT: OM moist Neck supple Lungs: CTA bilat Heart: S1S2, RRR, Abdomen: Soft, No tenderness, Extremities: 2+ pitting edema bilaterally R>L Skin: No rashes, Neuro: Normal No Simpson DIAGNOSIS/ASSESSMENT Assessment & Plan LAM on CKD - cardiorenal Improved, close to baseline , stable today E-Lytes and acid base stable CKD stage [address] Steiner Acute on chronic systolic and diastolic heart failure: with severe CM. Cardiology following NICM/ICM History of ventricular tachycardia/ventricular fibrillation: on amiodarone HTN: controlled COMMENT/RELEVANT DATA Meds Current Medications Medications (Trade) Dose Ordered Sig/Abimael Start Time Stop Time Status Last Admin Dose Admin Acetaminophen (Tylenol) 650 mg PRN Q6HRS PRN 06/29/18 16:15 Acetaminophen/ Hydrocodone Bitart (Lortab 5/325) 1 tab 1X ONCE 06/29/18 15:15 06/29/18 15:17 DC 06/29/18 15:31 1 TAB Amiodarone HCl (Cordarone) 200 mg DAILY 06/30/18 09:00 07/01/18 08:01 200 MG Aspirin (Children'S Aspirin) 81 mg DAILY 06/30/18 09:00 07/01/18 08:00 81 MG Azithromycin (Zithromax) 250 mg STK-MED ONCE 06/29/18 15:25 06/29/18 15:26 DC Carvedilol (Coreg) 6.25 mg BIDWMEALS 06/29/18 17:00 07/01/18 07:59 6.25 MG Ceftriaxone Sodium (Rocephin) 1 gm Q24H 06/30/18 15:00 06/30/18 16:56 DC Cyanocobalamin (Vitamin B-12) 1,000 mcg 1X ONCE 06/29/18 16:45 06/29/18 16:46 DC 06/30/18 00:25 1,000 MCG Doxycycline Hyclate 100 mg/ Dextrose 100 ml @ 50 mls/hr BID 06/29/18 17:00 06/30/18 16:56 DC 06/30/18 08:56 50 MLS/HR Furosemide (Lasix) 40 mg [id number] 06/29/18 17:00 07/01/18 08:01 40 MG Heparin Sodium (Porcine) (Heparin Sodium) 5,000 unit Q12HR 06/29/18 21:00 07/01/18 08:16 5,000 UNIT Lactobacillus Rhamnosus (Culturelle) 1 cap BID 06/30/18 21:00 07/01/18 08:00 1 CAP Lactulose (Lactulose) 20 gm PRN Q12HR PRN 06/29/18 16:15 Ondansetron HCl (Zofran) 4 mg PRN Q6HRS PRN 06/29/18 16:15 Polyethylene Glycol (miraLAX PACKET) 17 gm DAILY 06/30/18 09:00 06/30/18 08:56 17 GM Potassium Chloride (Klor-Con) 40 meq 1X ONCE 06/30/18 14:00 06/30/18 14:01 DC 06/30/18 15:37 40 MEQ Psyllium Hydrophilic Mucilloid (Metamucil Fiber Packet) 1 pkt DAILY 06/29/18 21:00 07/01/18 07:59 1 PKT Senna/Docusate Sodium (Senna Plus) 1 tab BID 06/29/18 21:00 07/01/18 08:00 1 TAB Simvastatin (Zocor) 20 mg HS 06/29/18 21:00 06/30/18 21:13 20 MG Lab Laboratory Tests Test 07/01/18 03:05 White Blood Count 4.4 x10^3/uL (4.0-11.0) Red Blood Count 5.08 x10^6/uL (3.50-5.40) Hemoglobin 13.8 g/dL (12.0-15.5) Hematocrit 44.1 % (36.0-47.0) Mean Corpuscular Volume 87 fL (79-100) Mean Corpuscular Hemoglobin 27 pg (25-35) Mean Corpuscular Hemoglobin Concent 31 g/dL (31-37) Red Cell Distribution Width 16.8 % (11.5-14.5) Platelet Count 115 x10^3/uL (140-400) Neutrophils (%) (Auto) 64 % (31-73) Lymphocytes (%) (Auto) 19 % (24-48) Monocytes (%) (Auto) 15 % (0-9) Eosinophils (%) (Auto) 3 % (0-3) Basophils (%) (Auto) 0 % (0-3) Neutrophils # (Auto) 2.8 x10^3uL (1.8-7.7) Lymphocytes # (Auto) 0.8 x10^3/uL (1.0-4.8) Monocytes # (Auto) 0.6 x10^3/uL (0.0-1.1) Eosinophils # (Auto) 0.1 x10^3/uL (0.0-0.7) Basophils # (Auto) 0.0 x10^3/uL (0.0-0.2) Sodium Level 144 mmol/L (136-145) Potassium Level 4.2 mmol/L (3.5-5.1) Chloride Level 106 mmol/L (98-107) Carbon Dioxide Level 29 mmol/L (21-32) Anion Gap 9 (6-14) Blood Urea Nitrogen 49 mg/dL (7-20) Creatinine 1.9 mg/dL (0.6-1.0) Estimated GFR (Cockcroft-Gault) 30.5 Glucose Level 92 mg/dL (70-99) Calcium Level 9.2 mg/dL (8.5-10.1) Magnesium Level 2.2 mg/dL (1.8-2.4) Results All relevant outside records, renal labs, imaging studies, telemetry/EKG's were reviewed. ANGELA MONREAL MD Jul 01, 2018 11:55
--- NOTE | 2018-07-01 15:52 | NUR ---
Patient discharged, home with home health. Marilu set up courtesy of [employer] work. Patient understands new prescriptions, discharge instructions, and the need to follow up with Dr. Arriola within the next two weeks. IV line discontinued. All belongings with patient. Patient alert and stable upon discharge. Patient accompanied by daughter upon discharge.
[2018-09-17] MEDS ORDERED: POTA20TA82 PO (11:53)
[2018-09-17] MEDS ORDERED: PANT20TA2 PO (11:53)
== END 2018-07-01 15:55 | disposition home health service (06) | DRG 682 ==
LOC: ER 12:35 → 5 NORTH 15:27
PROVIDERS: ADMIT Internal Medicine; ATTEND Internal Medicine
DX: N17.0 Acute kidney failure with tubular necrosis (principal); I50.43 Acute on chronic combined systolic (congestive) and diastolic (congestive) heart failure; I13.0 Hypertensive heart and chronic kidney disease with heart failure and stage 1 through stage 4 chronic kidney disease, or unspecified chronic kidney disease; J44.0 Chronic obstructive pulmonary disease with (acute) lower respiratory infection; I42.0 Dilated cardiomyopathy; I25.10 Atherosclerotic heart disease of native coronary artery without angina pectoris; N18.3 Chronic kidney disease, stage 3 (moderate); K59.00 Constipation, unspecified; E21.3 Hyperparathyroidism, unspecified; M19.90 Unspecified osteoarthritis, unspecified site; E78.00 Pure hypercholesterolemia, unspecified; E78.5 Hyperlipidemia, unspecified; I07.1 Rheumatic tricuspid insufficiency; I25.5 Ischemic cardiomyopathy; I27.20 Pulmonary hypertension, unspecified; M81.0 Age-related osteoporosis without current pathological fracture; Z82.49 Family history of ischemic heart disease and other diseases of the circulatory system; Z79.899 Other long term (current) drug therapy; Z86.010 Personal history of colon polyps; Z86.79 Personal history of other diseases of the circulatory system; Z90.710 Acquired absence of both cervix and uterus; Z95.0 Presence of cardiac pacemaker; Z95.810 Presence of automatic (implantable) cardiac defibrillator
CPT/HCPCS: 36415; 71045; 80048; 80053; 81001; 82550; 82553; 83605; 83735; 83880; 84443; 84484; 85025; 87040; 87086; 93005; 93306; 96374; J0696; J1644; J1940; J3420; J3490; Q0144; 99285-25

== ENCOUNTER 2018-09-15 14:26 | Inpatient (IN) | payer MEDICARE ==
[~2018-09-15] VITALS: Ht 154.9 cm; Wt 55.8 kg
[~2018-09-15 14:26] MED LIST changes: +FURO40TA4 PO; +TRAM50TA PO
[2018-09-15 15:16] LABS: BASO % 1 % (0-3); EOS % 0 % (0-3); HEMATOCRIT 50.6 % (36.0-47.0); HEMOGLOBIN 16.5 g/dL (12.0-15.5); LYMPH # 1.1 x10^3/uL (1.0-4.8); LYMPH % 33 % (24-48); MEAN CORPUSCULAR HEMOGLOBIN 28 pg (25-35); MEAN CORPUSCULAR HGB CONC 33 g/dL (31-37); MEAN CORPUSCULAR VOLUME 86 fL (79-100); MONO # 0.5 x10^3/uL (0.0-1.1); MONO % 15 % (0-9); NEUT # 1.7 x10^3uL (1.8-7.7); NEUT % 51 % (31-73); PLATELET COUNT 149 x10^3/uL (140-400); RED CELL DISTRIBUTION WIDTH 15.9 % (11.5-14.5); WHITE BLOOD COUNT 3.4 x10^3/uL (4.0-11.0)
[2018-09-15 15:28] LABS: ALBUMIN 3.9 g/dL (3.4-5.0); ALBUMIN/GLOBULIN RATIO 1.2 (1.0-1.7); CALCIUM 10.8 mg/dL (8.5-10.1); CREATININE 4.1 mg/dL (0.6-1.0); GFR 12.5; MAGNESIUM 2.2 mg/dL (1.8-2.4); TOTAL BILIRUBIN 2.1 mg/dL (0.2-1.0); TOTAL PROTEIN 7.2 g/dL (6.4-8.2)
[2018-09-15 15:29] LABS: POTASSIUM 2.5 mmol/L (3.5-5.1)
--- NOTE | 2018-09-15 15:41 | RAD ---
PORTABLE CHEST 1V Clinical Indication: Failure to thrive Comparison: AP chest, 07/01/2018 Findings: Left chest dual-chamber biventricular ICD. Marked cardiomegaly, stable. Lungs are clear. There is no pneumothorax. No pleural effusion is appreciated. No acute bone abnormality. Degenerative arthropathy of the shoulders. IMPRESSION: 1. Lungs are clear. 2. Stable marked cardiomegaly. Electronically signed by: Balwinder Triplett MD (09/15/2018 3:38 PM) [id number]
[2018-09-15] MEDS ORDERED: POTASSIUM CHLORIDE 10MEQ 100 ML IV SCH (16:00)
[2018-09-15] MEDS ORDERED: IV NORMAL SALINE 500ML BAG 500 ML IV ONE (16:00)
--- NOTE | 2018-09-15 16:05 | PHYS DOC ---
Past Medical History Past Medical History: CHF, High Cholesterol, Hypertension, Renal Disease Additional Past Medical Histor: Enlarged heart with low EF Past Surgical History: Pacemaker Alcohol Use: None Drug Use: None Adult General Chief Complaint Chief Complaint: DIFFICULTY SWALLOWING HPI HPI Patient is a 83 year old 83 who brought in by her daughter because of losing with and unable to eat. Patient had decrease of appetite and activity for the last several weeks and seen by her doctor today before yesterday and had 20 pounds weight loss compared to 20 days ago. Patient states she is not able to swallow solids and her primary care physician requested EGD as outpatient. Patient denies chest pain, shortness of breath, urinary symptoms, fever and chills, focal neuro deficit and complaining of generalized weakness and unable to move around. Review of Systems Review of Systems Constitutional: Denies fever or chills [] Eyes: Denies change in visual acuity, redness, or eye pain [] HENT: Denies nasal congestion or sore throat [] Respiratory: Denies cough or shortness of breath [] Cardiovascular: No additional information not addressed in HPI [] GI: Denies abdominal pain, nausea, vomiting, bloody stools or diarrhea [] : Denies dysuria or hematuria [] Musculoskeletal: Denies back pain or joint pain [] Integument: Denies rash or skin lesions [] Neurologic: Denies headache, focal weakness or sensory changes [] Endocrine: Denies polyuria or polydipsia [] All other systems were reviewed and found to be within normal limits, except as documented in this note. Current Medications Current Medications Allergies Allergies Allergies Coded Allergies Type Severity Reaction Last Updated Verified No Known Drug Allergies 10/06/16 No Physical Exam Physical Exam Constitutional: Well developed, mild distress, non-toxic appearance. [] HENT: Normocephalic, atraumatic, oropharynx dry. Eyes: PERRLA, EOMI, conjunctiva normal, no discharge. [] Neck: Normal range of motion, no tenderness, supple, no stridor. [] Cardiovascular:Heart rate regular rhythm, no murmur [] Lungs & Thorax: Bilateral breath sounds clear to auscultation [] Abdomen: Bowel sounds normal, soft, no tenderness, no masses, no pulsatile masses. [] Skin: Warm, dry, no erythema, no rash. [] Back: No tenderness, no CVA tenderness. [] Extremities: No tenderness, no cyanosis, no clubbing, ROM intact, no edema. [] Neurologic: Alert and oriented X 3, normal motor function, normal sensory function, no focal deficits noted. [] Psychologic: Affect normal, judgement normal, mood normal. [] Current Patient Data Vital Signs Vital Signs Date Time Temp Pulse Resp B/P (MAP) Pulse Ox O2 Delivery O2 Flow Rate FiO2 09/15/18 15:30 60 18 120/71 (87) 96 09/15/18 14:45 97.7 Room Air 97.7 Lab Values Laboratory Tests Test 09/15/18 15:03 White Blood Count 3.4 x10^3/uL (4.0-11.0) L Red Blood Count 5.90 x10^6/uL (3.50-5.40) H Hemoglobin 16.5 g/dL (12.0-15.5) H Hematocrit 50.6 % (36.0-47.0) H Mean Corpuscular Volume 86 fL (79-100) Mean Corpuscular Hemoglobin 28 pg (25-35) Mean Corpuscular Hemoglobin Concent 33 g/dL (31-37) Red Cell Distribution Width 15.9 % (11.5-14.5) H Platelet Count 149 x10^3/uL (140-400) Neutrophils (%) (Auto) 51 % (31-73) Lymphocytes (%) (Auto) 33 % (24-48) Monocytes (%) (Auto) 15 % (0-9) H Eosinophils (%) (Auto) 0 % (0-3) Basophils (%) (Auto) 1 % (0-3) Neutrophils # (Auto) 1.7 x10^3uL (1.8-7.7) L Lymphocytes # (Auto) 1.1 x10^3/uL (1.0-4.8) Monocytes # (Auto) 0.5 x10^3/uL (0.0-1.1) Eosinophils # (Auto) 0.0 x10^3/uL (0.0-0.7) Basophils # (Auto) 0.0 x10^3/uL (0.0-0.2) Platelet Estimate Adequate (ADEQUATE) Giant Platelets Occ Prothrombin Time 15.0 SEC (11.7-14.0) H Prothrombin Time INR 1.2 (0.8-1.1) H Sodium Level 130 mmol/L (136-145) L Potassium Level 2.5 mmol/L (3.5-5.1) *L Chloride Level 82 mmol/L (98-107) L Carbon Dioxide Level 39 mmol/L (21-32) H Anion Gap 9 (6-14) Blood Urea Nitrogen 135 mg/dL (7-20) H Creatinine 4.1 mg/dL (0.6-1.0) H Estimated GFR (Cockcroft-Gault) 12.5 BUN/Creatinine Ratio 33 (6-20) H Glucose Level 127 mg/dL (70-99) H Lactic Acid Level 1.7 mmol/L (0.4-2.0) Calcium Level 10.8 mg/dL (8.5-10.1) H Magnesium Level 2.2 mg/dL (1.8-2.4) Total Bilirubin 2.1 mg/dL (0.2-1.0) H Aspartate Amino Transferase (AST) 104 U/L (15-37) H Alanine Aminotransferase (ALT) 86 U/L (14-59) H Alkaline Phosphatase 106 U/L (46-116) Creatine Kinase 72 U/L (26-192) Troponin I Quantitative 0.701 ng/mL (0.000-0.055) SE-Pvf-B-Type Natriuretic Peptide 38743 pg/mL (0-449) H Total Protein 7.2 g/dL (6.4-8.2) Albumin 3.9 g/dL (3.4-5.0) Albumin/Globulin Ratio 1.2 (1.0-1.7) Lipase 97 U/L (73-393) Laboratory Tests 09/15/18 15:03 Laboratory Tests 09/15/18 15:03 EKG EKG EKG Interpreted by me. EKG at 1450 showed sinus rhythm, left rivera axis, low voltage QRS, nonspecific ST and T-wave abnormalities in inferior and anteroseptal leads. Change of EKG was discussed with Dr. jeffery and stated this changes related to defibrillator rhythm. Radiology/Procedures Radiology/Procedures [][facility] [address] [place], [place] [id number] IMAGING REPORT Signed PATIENT: CONSUELO IBRAHIMPerfecto Norman ACCOUNT: [id number] : 1935 LOCATION: ER AGE: 83 SEX: F EXAM STATUS: REG ER ORD. PHYSICIAN: ASAD ERNST MD REASON: failure to thrive PROCEDURE: PORTABLE CHEST 1V PORTABLE CHEST 1V Clinical Indication: Failure to thrive Comparison: AP chest, 07/01/2018 Findings: Left chest dual-chamber biventricular ICD. Marked cardiomegaly, stable. Lungs are clear. There is no pneumothorax. No pleural effusion is appreciated. No acute bone abnormality. Degenerative arthropathy of the shoulders. IMPRESSION: 1. Lungs are clear. 2. Stable marked cardiomegaly. Electronically signed by: Balwinder Triplett MD (09/15/2018 3:38 PM) [id number] DICTATED and SIGNED BY: BALWINDER TRIPLETT MD DATE: 09/15/18 1538 Course & Med Decision Making Course & Med Decision Making Pertinent Labs and Imaging studies reviewed. (See chart for details) Evaluation of patient in ER showed 83-year-old female patient brought in because of losing weight and unable to eat for several days. Patient had dehydration and labs showed severe dehydration with hypokalemia. IV potassium and fluid was started. Patient requiring admission for further evaluation and treatment. Discussed with Dr. Kay who is in agreement with admission. Discussed findings and plan with patient and family, who acknowledge understanding and agreement. Dragon Disclaimer Dragon Disclaimer This electronic medical record was generated, in whole or in part, using a voice recognition dictation system. Departure Departure Impression: Primary Impression: Acute on chronic renal failure Additional Impressions: Failure to thrive Elevated troponin Congestive heart failure Severe dehydration Hyponatremia Elevated liver function tests Hypercalcemia Leukopenia Disposition: ADMITTED INPATIENT (at 1615) Admitting Physician: Misa Kay (accepted admission at 1615) Condition: GUARDED Referrals: BLAKE RAMIRES MD (PCP) Problem Qualifiers Primary Impression: Acute on chronic renal failure Acute renal failure type: unspecified Chronic kidney disease stage: unspecified stage Qualified Codes: N17.9 - Acute kidney failure, unspecified; N18.9 - Chronic kidney disease, unspecified Additional Impressions: Failure to thrive Failure to thrive age range: in adult Qualified Codes: R62.7 - Adult failure to thrive Congestive heart failure Heart failure type: unspecified Heart failure chronicity: unspecified Qualified Codes: I50.9 - Heart failure, unspecified Leukopenia Leukopenia type: unspecified Qualified Codes: D72.819 - Decreased white blood cell count, unspecified ASAD ERNST MD September 15, 2018 16:05
[2018-09-15 16:11] LABS: BILIRUBIN,URINE NEGATIVE (NEG); CLARITY,URINE CLEAR; COLOR,URINE YELLOW; NITRITE,URINE NEGATIVE (NEG); PROTEIN,URINE NEGATIVE (NEG-TRACE)
[2018-09-15] MEDS: IV NORMAL SALINE 1000ML BAG 1,000 ML IV SCH ×2 (16:24→20:16)
[2018-09-15] MEDS ORDERED: POTASSIUM CHLORIDE 20 MEQ/15 ML ORAL LIQUID. PO ONE (16:30)
[2018-09-15] MEDS ORDERED: IV NORMAL SALINE 1000ML BAG 1,000 ML IV ONE (16:30)
[2018-09-15 16:31] LABS: BACTERIA,URINE FEW /HPF (0-FEW); HYALINE CASTS, URINE FEW /HPF; RBC,URINE OCC /HPF (0-2); SQUAMOUS EPITHELIAL CELL,UR FEW /LPF; WBC,URINE OCC /HPF (0-4)
[2018-09-15 17:00] VITALS: BP 100/59
[2018-09-15 17:25] LABS: PLT ESTIMATE ADEQUATE (ADEQUATE)
[2018-09-15] MEDS ORDERED: POTASSIUM CHLORIDE 20 MEQ TABLET.ER. PO ONE (17:30)
[2018-09-15] MEDS: CARVEDILOL 6.25 MG TABLET. PO SCH (17:30)
--- NOTE | 2018-09-15 17:31 | PDOC1 ---
History and Physical Date of Admission Date of Admission DATE: 09/15/18 TIME: 17:24 Identification/Chief Complaint Chief Complaint Epigastric pain, decreased by mouth intake, weight loss 20 pounds Source Source: Caregiver, Chart review, Patient History of Present Illness History of Present Illness SHe is an 83-year-old AA female, still full code per granddaughter, Dtr lives across the street and checks on her, EF 20%, admitted here not too long ago June or August 2018 with cardiology on board for acute pulmonary edema with low EF. She is on Bumex 2 mg twice a day, simvastatin 20 daily at bedtime, Coreg 6.25 twice a day amiodarone 200 daily aspirin 81 and potassium which was recently stopped. Decreased by mouth intake because of some epigastric pain and no appetite and some sensation in the throat. PCP wanted admission for EGD. I have my doubts what EGD as she will be a high risk to put under anesthesia with an EF of 20%. In any case labs show signs of being on the dry side with: hemoconcentration hemoglobin 16, hyponatremia 130, critical hypokalemia 2.5 with metabolic contraction alkalosis 39 and a creatinine of 4.1 up from her baseline. Also hypercalcemic 10.8. Troponin 0.7 with no chest pain and reassuring EKG. We will hydrate, hold Bumex, GI consulted per family request but I did tell them about the high risk of EGD and that GI might not want to do this given low EF and they understand. We'll consult nutrition. Hold Bumex until for about 2 days which we can resume safely afterwards. Does not want any rehabilitation or skilled. Still full code but I asked daughter. Seen at ER Lost 20 pounds in short amount of time, CC epigastric discomfort, denies history of PUD or NSAID abuse. NOn smoker Past Medical History Cardiovascular: CHF, HTN, Other Pulmonary: Asthma, Other GI: Other Heme/Onc: Anemia NOS Hepatobiliary: No pertinent hx Psych: No pertinent hx Musculoskeletal: Osteoarthritis Rheumatologic: No pertinent hx Infectious disease: No pertinent hx Renal/: No pertinent hx Endocrine: Osteoporosis Past Surgical History Past Surgical History: Pacemaker, Hysterectomy, Other Family History Family History: Coronary Artery Disease Social History Smoke: No ALCOHOL: none Drugs: None Current Problem List Problem List Problems Medical Problems: (1) Acute on chronic renal failure Status: Acute (2) Congestive heart failure Status: Acute (3) Elevated liver function tests Status: Acute (4) Elevated troponin Status: Acute (5) Failure to thrive Status: Acute (6) Hypercalcemia Status: Acute (7) Hyponatremia Status: Acute (8) Leukopenia Status: Acute (9) Severe dehydration Status: Acute Current Medications Current Medications Current Medications Potassium Chloride/Water 100 ml @ 100 mls/hr Q1H IV Last administered on 09/15/18at 16:08; Start 09/15/18 at 16:00; Stop 09/15/18 at 16:59; Status DC Sodium Chloride 500 ml @ 500 mls/hr 1X ONCE IV Last administered on 09/15/18at 16:09; Start 09/15/18 at 16:00; Stop 09/15/18 at 16:59; Status DC Sodium Chloride 1,000 ml @ 125 mls/hr Q8H IV ; Start 09/15/18 at 16:24; Stop 09/16/18 at 16:23 Potassium Chloride (KCl Oral Soln) 40 meq 1X ONCE PO ; Start 09/15/18 at 16:30; Stop 09/15/18 at 16:31; Status DC Sodium Chloride 1,000 ml @ 1,000 mls/hr 1X ONCE IV ; Start 09/15/18 at 16:30; Stop 09/15/18 at 17:29 Potassium Chloride (Klor-Con) 40 meq 1X ONCE PO ; Start 09/15/18 at 17:30; Stop 09/15/18 at 17:31; Status UNV Amiodarone HCl (Cordarone) 200 mg DAILY PO ; Start 09/16/18 at 09:00; Status UNV Aspirin (Children'S Aspirin) 81 mg DAILY PO ; Start 09/16/18 at 09:00; Status UNV Carvedilol (Coreg) 6.25 mg BID PO ; Start 09/15/18 at 21:00; Status UNV Tramadol HCl (Ultram) 50 mg QID PRN PO PAIN; Start 09/15/18 at 17:30; Status UNV Non-Formulary Medication (Potassium Chloride ) 20 meq DAILY PO ; Start 09/16/18 at 09:00; Status UNV Non-Formulary Medication (Simvastatin ) 20 mg HS PO ; Start 09/15/18 at 21:00; Status UNV Multivitamins (Thera M Plus) 1 tab DAILY PO ; Start 09/16/18 at 09:00; Status UNV Active Scripts Active Furosemide 40 Mg Tablet 40 Mg PO BID 30 Days Tramadol Hcl 50 Mg Tablet 50 Mg PO PRN Q6-8HRS PRN 6 Days Amiodarone Hcl 200 Mg Tablet 200 Mg PO DAILY 30 Days Reported Potassium Chloride 20 Meq Tablet.er 20 Meq PO DAILY Carvedilol (Carvedilol) 6.25 Mg Tablet 1 Tab PO BID Multivitamins (Multivitamin) 1 Each Tablet 1 Each PO Simvastatin 20 Mg Tablet 20 Mg PO HS Aspirin 81 Mg Tab.chew 81 Mg PO Allergies Allergies: Coded Allergies: No Known Drug Allergies (Unverified , 10/06/16) ROS Review of System weak, Poor by mouth, weight loss 20 pounds, no chest pain, no SOA, no leg edema, positive abdominal epigastric area pain, rest of ROS 14 point negative Physical Exam General: Alert, Oriented X3, Cooperative, No acute distress, Other (weak looking but not in distress) HEENT: Atraumatic, PERRLA, EOMI Lungs: Clear to auscultation, Normal air movement Heart: S1S2, RRR, no thrills, no rubs, no gallops, no murmurs Cardiovascular: S1 Breasts: Normal, Rt breast nml w/o mass, Lt breast nml w/o mass, Nipples normal Abdomen: Normal bowel sounds, Soft, No tenderness, No hepatosplenomegaly, No masses Male Genitals Exam: normal genitalia Rectal Exam: not examined PELVIC: Nml ext genitalia Extremities: No clubbing, No cyanosis, No edema, Normal pulses, No tenderness/swelling Skin: No rashes, No breakdown, No significant lesion, Other (very dry, senile skin turgor) Neuro: Normal gait, Normal speech, Strength at 5/5 X4 ext, Normal tone, Sensation intact, Cranial nerves 3-12 NL, Reflexes 2+ Psych/Mental Status: Mental status NL, Mood NL Vitals Vitals Vital Signs Date Time Temp Pulse Resp B/P (MAP) Pulse Ox O2 Delivery O2 Flow Rate FiO2 09/15/18 17:01 Room Air 09/15/18 17:00 97.6 59 20 100/59 (73) 97 97.6 Labs Labs Laboratory Tests Test 09/15/18 15:03 09/15/18 16:00 White Blood Count 3.4 x10^3/uL (4.0-11.0) Red Blood Count 5.90 x10^6/uL (3.50-5.40) Hemoglobin 16.5 g/dL (12.0-15.5) Hematocrit 50.6 % (36.0-47.0) Mean Corpuscular Volume 86 fL (79-100) Mean Corpuscular Hemoglobin 28 pg (25-35) Mean Corpuscular Hemoglobin Concent 33 g/dL (31-37) Red Cell Distribution Width 15.9 % (11.5-14.5) Platelet Count 149 x10^3/uL (140-400) Neutrophils (%) (Auto) 51 % (31-73) Lymphocytes (%) (Auto) 33 % (24-48) Monocytes (%) (Auto) 15 % (0-9) Eosinophils (%) (Auto) 0 % (0-3) Basophils (%) (Auto) 1 % (0-3) Neutrophils # (Auto) 1.7 x10^3uL (1.8-7.7) Lymphocytes # (Auto) 1.1 x10^3/uL (1.0-4.8) Monocytes # (Auto) 0.5 x10^3/uL (0.0-1.1) Eosinophils # (Auto) 0.0 x10^3/uL (0.0-0.7) Basophils # (Auto) 0.0 x10^3/uL (0.0-0.2) Prothrombin Time 15.0 SEC (11.7-14.0) Prothromb Time International Ratio 1.2 (0.8-1.1) Sodium Level 130 mmol/L (136-145) Potassium Level 2.5 mmol/L (3.5-5.1) Chloride Level 82 mmol/L (98-107) Carbon Dioxide Level 39 mmol/L (21-32) Anion Gap 9 (6-14) Blood Urea Nitrogen 135 mg/dL (7-20) Creatinine 4.1 mg/dL (0.6-1.0) Estimated GFR (Cockcroft-Gault) 12.5 BUN/Creatinine Ratio 33 (6-20) Glucose Level 127 mg/dL (70-99) Lactic Acid Level 1.7 mmol/L (0.4-2.0) Calcium Level 10.8 mg/dL (8.5-10.1) Magnesium Level 2.2 mg/dL (1.8-2.4) Total Bilirubin 2.1 mg/dL (0.2-1.0) Aspartate Amino Transf (AST/SGOT) 104 U/L (15-37) Alanine Aminotransferase (ALT/SGPT) 86 U/L (14-59) Alkaline Phosphatase 106 U/L (46-116) Creatine Kinase 72 U/L (26-192) Troponin I Quantitative 0.701 ng/mL (0.000-0.055) LB-Orn-E-Type Natriuretic Peptide 24844 pg/mL (0-449) Total Protein 7.2 g/dL (6.4-8.2) Albumin 3.9 g/dL (3.4-5.0) Albumin/Globulin Ratio 1.2 (1.0-1.7) Lipase 97 U/L (73-393) Urine Collection Type Unknown Urine Color Yellow Urine Clarity Clear Urine pH 6.0 Urine Specific Upper Tract 1.010 Urine Protein Negative mg/dL (NEG-TRACE) Urine Glucose (UA) Negative mg/dL (NEG) Urine Ketones (Stick) Negative mg/dL (NEG) Urine Blood Negative (NEG) Urine Nitrite Negative (NEG) Urine Bilirubin Negative (NEG) Urine Urobilinogen Dipstick 1.0 mg/dL (0.2 mg/dL) Urine Leukocyte Esterase Negative (NEG) Urine RBC Occ /HPF (0-2) Urine WBC Occ /HPF (0-4) Urine Squamous Epithelial Cells Few /LPF Urine Bacteria Few /HPF (0-FEW) Urine Hyaline Casts Few /HPF Urine Mucus Slight /LPF Laboratory Tests Test 09/15/18 15:03 09/15/18 16:00 White Blood Count 3.4 x10^3/uL (4.0-11.0) Red Blood Count 5.90 x10^6/uL (3.50-5.40) Hemoglobin 16.5 g/dL (12.0-15.5) Hematocrit 50.6 % (36.0-47.0) Mean Corpuscular Volume 86 fL (79-100) Mean Corpuscular Hemoglobin 28 pg (25-35) Mean Corpuscular Hemoglobin Concent 33 g/dL (31-37) Red Cell Distribution Width 15.9 % (11.5-14.5) Platelet Count 149 x10^3/uL (140-400) Neutrophils (%) (Auto) 51 % (31-73) Lymphocytes (%) (Auto) 33 % (24-48) Monocytes (%) (Auto) 15 % (0-9) Eosinophils (%) (Auto) 0 % (0-3) Basophils (%) (Auto) 1 % (0-3) Neutrophils # (Auto) 1.7 x10^3uL (1.8-7.7) Lymphocytes # (Auto) 1.1 x10^3/uL (1.0-4.8) Monocytes # (Auto) 0.5 x10^3/uL (0.0-1.1) Eosinophils # (Auto) 0.0 x10^3/uL (0.0-0.7) Basophils # (Auto) 0.0 x10^3/uL (0.0-0.2) Prothrombin Time 15.0 SEC (11.7-14.0) Prothromb Time International Ratio 1.2 (0.8-1.1) Sodium Level 130 mmol/L (136-145) Potassium Level 2.5 mmol/L (3.5-5.1) Chloride Level 82 mmol/L (98-107) Carbon Dioxide Level 39 mmol/L (21-32) Anion Gap 9 (6-14) Blood Urea Nitrogen 135 mg/dL (7-20) Creatinine 4.1 mg/dL (0.6-1.0) Estimated GFR (Cockcroft-Gault) 12.5 BUN/Creatinine Ratio 33 (6-20) Glucose Level 127 mg/dL (70-99) Lactic Acid Level 1.7 mmol/L (0.4-2.0) Calcium Level 10.8 mg/dL (8.5-10.1) Magnesium Level 2.2 mg/dL (1.8-2.4) Total Bilirubin 2.1 mg/dL (0.2-1.0) Aspartate Amino Transf (AST/SGOT) 104 U/L (15-37) Alanine Aminotransferase (ALT/SGPT) 86 U/L (14-59) Alkaline Phosphatase 106 U/L (46-116) Creatine Kinase 72 U/L (26-192) Troponin I Quantitative 0.701 ng/mL (0.000-0.055) LG-Hvg-K-Type Natriuretic Peptide 97532 pg/mL (0-449) Total Protein 7.2 g/dL (6.4-8.2) Albumin 3.9 g/dL (3.4-5.0) Albumin/Globulin Ratio 1.2 (1.0-1.7) Lipase 97 U/L (73-393) Urine Collection Type Unknown Urine Color Yellow Urine Clarity Clear Urine pH 6.0 Urine Specific Upper Tract 1.010 Urine Protein Negative mg/dL (NEG-TRACE) Urine Glucose (UA) Negative mg/dL (NEG) Urine Ketones (Stick) Negative mg/dL (NEG) Urine Blood Negative (NEG) Urine Nitrite Negative (NEG) Urine Bilirubin Negative (NEG) Urine Urobilinogen Dipstick 1.0 mg/dL (0.2 mg/dL) Urine Leukocyte Esterase Negative (NEG) Urine RBC Occ /HPF (0-2) Urine WBC Occ /HPF (0-4) Urine Squamous Epithelial Cells Few /LPF Urine Bacteria Few /HPF (0-FEW) Urine Hyaline Casts Few /HPF Urine Mucus Slight /LPF VTE Prophylaxis Ordered VTE Prophylaxis Devices: Yes VTE Pharmacological Prophylaxi: Yes Assessment/Plan Assessment/Plan severe dehydration with signs of hyponatremia, critical hypokalemia AK I sec to poor by mouth Poor appetite with weight loss 20 pounds Contraction metabolic alkalosis Hemoconcentration Hypercalcemia Severe cardiomyopathy with EF 20% Geriatric High fall risk Full code [employer] cynthia PLAN: Admit 2 midnight, nutrition consult GI consult per family request I have reconciled home meds except Bumex to resume after 24 hours Hydrate but cut back to 1 20 mL from 200 mL ordered by ER Replace 40 more milliequivalents KCl on top of the 50 that she will get at ER Resume home K regimen daily Recheck labs tomorrow especially elytes calcium, potassium, creatinine. Full code Seen at ER Dw dtr PT.OT when able Cardiac diet NEVILLE LAMA MD September 15, 2018 17:31
[2018-09-15 19:46] VITALS: BP 100/58
[2018-09-15] MEDS: traMADol 50 MG TABLET PO PRN (20:13)
[2018-09-15] MEDS: SIMVASTATIN 20 MG TABLET PO SCH (20:13)
[2018-09-15 23:54] VITALS: BP 88/47
[2018-09-16] MEDS: traMADol 50 MG TABLET PO PRN (03:06)
[2018-09-16] MEDS: IV NORMAL SALINE 1000ML BAG 1,000 ML IV SCH ×4 (03:07→20:48)
[2018-09-16 03:25] VITALS: BP 90/46
[2018-09-16 04:40] LABS: HEMATOCRIT 46.3 % (36.0-47.0); HEMOGLOBIN 14.8 g/dL (12.0-15.5)
[2018-09-16 05:03] LABS: CREATININE 3.4 mg/dL (0.6-1.0); GFR 15.6
[2018-09-16 05:05] LABS: POTASSIUM 2.8 mmol/L (3.5-5.1)
[2018-09-16] MEDS: POTASSIUM CHLORIDE 20 MEQ TABLET.ER. PO SCH ×3 (06:09→20:49)
--- NOTE | 2018-09-16 06:18 | EKG ---
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
[2018-09-16 07:00] VITALS: BP 90/54
[2018-09-16] MEDS: CARVEDILOL 6.25 MG TABLET. PO SCH ×2 (08:00→17:00)
[2018-09-16] MEDS: MULTIVITAMIN with MINERAL TABLET. PO SCH (08:39)
[2018-09-16] MEDS: ASPIRIN CHEWABLE 81 MG TABLET. PO SCH (08:39)
--- NOTE | 2018-09-16 09:00 | NUR ---
Pts blood pressure was 90/54 and heart rate 63, carvedilol held. Pt now NPO for EGD procedure.
--- NOTE | 2018-09-16 09:32 | PDOC2 ---
GI CONSULT Reason For Consult: Epig pain, PCP wants EGD but EF 20% HPI: HPI: 83 y/o female admitted through ER, seen this morning in her room w/ family member Estrellita. For >1 month, has been eating less and has lost ~20 pounds. "Feels full" after a few bites, also describes globus/dysphagia in midchest w/ solids and liquids (though ate most of breakfast without issue this morning). Some nausea, no vomiting, no regurg. No odynophagia. No heartburn or reflux though did try Tums (ineffective). Estrellita also says her PCP (Kavitha @ Dr. Carr's office) gave her "an ulcer pill for 5 days" as a trial. Has "more than an ache" in mid abdomen sometimes after eating. No diarrhea. H/o intermittent constip ation - probably worse recently. Last stooled ~2 days ago w/ Metamucil and another stool softener. No hematochezia or melena (though has noted some hemorrhoidal type bleeding in the past when straining to stool). Denies previous EGD. Colonoscopy by Dr. Alicea in 2017 for h/o polyps showed a tubular adenoma in the cecum. No GB, liver, pancreas, or PUD history. No NSAIDs. PMH: PMH: CHF, HTN, NICM, LBBB, left SVC thrombosis, varicosities, dilated CM, asthma, pulm HTN, OA, glaucoma, osteoporosis, pacemaker, hysterectomy, lumpectomy FH: Family History: Cancer Social History: Smoke: No ALCOHOL: none Drugs: None ROS: GEN: Denies fevers, chills, sweats HEENT: Denies blurred vision, sore throat CV: Denies chest pain RESP: Denies shortness of air, cough GI: Per HPI : Denies hematuria, dysuria ENDO: +weight loss NEURO: Denies confusion, dizziness MSK: Denies weakness, joint pain/swelling SKIN: Denies jaundice, pruritus Vitals: Vitals: Vital Signs Date Time Temp Pulse Resp B/P (MAP) Pulse Ox O2 Delivery O2 Flow Rate FiO2 09/16/18 07:00 97.5 63 18 90/54 (66) 100 Room Air 97.5 Labs: Labs: Laboratory Tests Test 09/15/18 15:03 09/15/18 16:00 09/16/18 04:10 White Blood Count 3.4 x10^3/uL (4.0-11.0) Red Blood Count 5.90 x10^6/uL (3.50-5.40) Hemoglobin 16.5 g/dL (12.0-15.5) 14.8 g/dL (12.0-15.5) Hematocrit 50.6 % (36.0-47.0) 46.3 % (36.0-47.0) Mean Corpuscular Volume 86 fL (79-100) Mean Corpuscular Hemoglobin 28 pg (25-35) Mean Corpuscular Hemoglobin Concent 33 g/dL (31-37) 32 g/dL (31-37) Red Cell Distribution Width 15.9 % (11.5-14.5) Platelet Count 149 x10^3/uL (140-400) Neutrophils (%) (Auto) 51 % (31-73) Lymphocytes (%) (Auto) 33 % (24-48) Monocytes (%) (Auto) 15 % (0-9) Eosinophils (%) (Auto) 0 % (0-3) Basophils (%) (Auto) 1 % (0-3) Neutrophils # (Auto) 1.7 x10^3uL (1.8-7.7) Lymphocytes # (Auto) 1.1 x10^3/uL (1.0-4.8) Monocytes # (Auto) 0.5 x10^3/uL (0.0-1.1) Eosinophils # (Auto) 0.0 x10^3/uL (0.0-0.7) Basophils # (Auto) 0.0 x10^3/uL (0.0-0.2) Platelet Estimate Adequate (ADEQUATE) Giant Platelets Occ Prothrombin Time 15.0 SEC (11.7-14.0) Prothromb Time International Ratio 1.2 (0.8-1.1) Sodium Level 130 mmol/L (136-145) 134 mmol/L (136-145) Potassium Level 2.5 mmol/L (3.5-5.1) 2.8 mmol/L (3.5-5.1) Chloride Level 82 mmol/L (98-107) 90 mmol/L (98-107) Carbon Dioxide Level 39 mmol/L (21-32) 39 mmol/L (21-32) Anion Gap 9 (6-14) 5 (6-14) Blood Urea Nitrogen 135 mg/dL (7-20) 118 mg/dL (7-20) Creatinine 4.1 mg/dL (0.6-1.0) 3.4 mg/dL (0.6-1.0) Estimated GFR (Cockcroft-Gault) 12.5 15.6 BUN/Creatinine Ratio 33 (6-20) Glucose Level 127 mg/dL (70-99) 94 mg/dL (70-99) Lactic Acid Level 1.7 mmol/L (0.4-2.0) Calcium Level 10.8 mg/dL (8.5-10.1) 10.0 mg/dL (8.5-10.1) Magnesium Level 2.2 mg/dL (1.8-2.4) Total Bilirubin 2.1 mg/dL (0.2-1.0) Aspartate Amino Transf (AST/SGOT) 104 U/L (15-37) Alanine Aminotransferase (ALT/SGPT) 86 U/L (14-59) Alkaline Phosphatase 106 U/L (46-116) Creatine Kinase 72 U/L (26-192) Troponin I Quantitative 0.701 ng/mL (0.000-0.055) XD-Izb-F-Type Natriuretic Peptide 33865 pg/mL (0-449) Total Protein 7.2 g/dL (6.4-8.2) Albumin 3.9 g/dL (3.4-5.0) Albumin/Globulin Ratio 1.2 (1.0-1.7) Lipase 97 U/L (73-393) Urine Collection Type Unknown Urine Color Yellow Urine Clarity Clear Urine pH 6.0 Urine Specific [place] 1.010 Urine Protein Negative mg/dL (NEG-TRACE) Urine Glucose (UA) Negative mg/dL (NEG) Urine Ketones (Stick) Negative mg/dL (NEG) Urine Blood Negative (NEG) Urine Nitrite Negative (NEG) Urine Bilirubin Negative (NEG) Urine Urobilinogen Dipstick 1.0 mg/dL (0.2 mg/dL) Urine Leukocyte Esterase Negative (NEG) Urine RBC Occ /HPF (0-2) Urine WBC Occ /HPF (0-4) Urine Squamous Epithelial Cells Few /LPF Urine Bacteria Few /HPF (0-FEW) Urine Hyaline Casts Few /HPF Urine Mucus Slight /LPF Allergies: Coded Allergies: No Known Drug Allergies (Unverified , 10/06/16) Medications: Current Medications Medications (Trade) Dose Ordered Sig/Abimael Route PRN Reason Start Time Stop Time Status Last Admin Dose Admin Potassium Chloride/Water 100 ml @ 100 mls/hr Q1H IV 09/15/18 16:00 09/15/18 16:59 DC 09/15/18 16:08 Sodium Chloride 500 ml @ 500 mls/hr 1X ONCE IV 09/15/18 16:00 09/15/18 16:59 DC 09/15/18 16:09 Sodium Chloride 1,000 ml @ 125 mls/hr Q8H IV 09/15/18 16:24 09/16/18 16:23 09/16/18 03:07 Potassium Chloride (KCl Oral Soln) 40 meq 1X ONCE PO 09/15/18 16:30 09/15/18 16:31 DC 09/15/18 18:14 Potassium Chloride (Klor-Con) 40 meq 1X ONCE PO 09/15/18 17:30 09/15/18 17:31 DC 09/15/18 18:15 Aspirin (Children'S Aspirin) 81 mg DAILY PO 09/16/18 09:00 09/16/18 08:39 Tramadol HCl (Ultram) 50 mg PRN QID PRN PO MILD TO MODERATE PAIN 09/15/18 17:30 09/16/18 03:06 Simvastatin (Zocor) 20 mg HS PO 09/15/18 21:00 09/15/18 20:13 Multivitamins (Thera M Plus) 1 tab DAILY PO 09/16/18 09:00 09/16/18 08:39 Potassium Chloride (Klor-Con) 20 meq TID PO 09/16/18 06:00 09/16/18 21:01 09/16/18 06:09 Imaging: Imaging: CXR IMPRESSION: 1. Lungs are clear. 2. Stable marked cardiomegaly. Echocardiogram 06/2018 <Conclusion> Left ventricle systolic function is severely impaired. The Ejection Fraction is 10-15%. There is severe global hypokinesis of the left ventricle. There is a pacemaker/ICD lead in the right ventricle. Doppler and Color Flow revealed mild to moderate tricuspid regurgitation. There is moderate pulmonary hypertension. The PA pressure was estimated at 52 mmHg. The IVC is dilated and collapses <50% with inspiration. PE: GEN: NAD HEENT: Atraumatic, PERRL LUNGS: CTAB anteriorly HEART: RRR +murm ABD: NABS, S/ND, vague periumbilical discomfort EXTREMITY: BLE edema SKIN: No rashes, no jaundice NEURO/PSYCH: A & O 3 A/P: A/P: Early satiety, globus/dysphagia, dyspepsia, weight loss CRC screen, h/o adenomatous polyps - UTD H/o constipation NICM - echo from earlier this year as above w/ EF 10-15% Hypokalemia, hyponatremia, LAM, mildly elevated troponin, elevated BNP, elevated LFTs -- NPO now for EGD this afternoon. Additional recs pending. Monitor labs. ENRIQUE NELSON September 16, 2018 09:32
[2018-09-16 11:00] VITALS: BP 90/53
[2018-09-16 12:00] LABS: ALBUMIN 3.2 g/dL (3.4-5.0); DIRECT BILIRUBIN 0.6 mg/dL (0.0-0.2); TOTAL BILIRUBIN 1.8 mg/dL (0.2-1.0); TOTAL PROTEIN 5.9 g/dL (6.4-8.2)
[2018-09-16] MEDS ORDERED: MIDAZOLAM HCL/PF 2 MG/2 ML VIAL. IV PRN (13:00)
[2018-09-16] MEDS ORDERED: fentaNYL PF VIAL 100 MCG/2 ML VIAL IV PRN ×2 (13:00)
[2018-09-16] MEDS ORDERED: LIDOCAINE 1% PF 2 ML VIAL. ID PRN (13:00)
[2018-09-16] MEDS ORDERED: PROPOFOL 20 ML IV ONE (14:03)
[2018-09-16] MEDS ORDERED: LIDOCAINE 2% PF 5 ML VIAL. ONE (14:03)
--- NOTE | 2018-09-16 14:27 | PDOC4 ---
PROCEDURE Procedure EGD/Manzanares dilate. Indication: dysphagia/dyspepsia Meds: per anesthesia Findings: E--Healed, baseline grade indeterminate, esophagitis at 40cm. G--Some retained food, but only 5 hours or so post-meal. D--Normal to second. -52F Manzanares dilator passed empirically w/o resistance. Jayy. well. IMP: GERD Perhaps reflux-induced dysmotility as cause of dysphagia. Doubt really has gastroparesis. REC: Continue PPI. Assess symptoms post-dilatation. Thanks. BLAKE GRAY MD September 16, 2018 14:27
--- NOTE | 2018-09-16 14:30 | NUR ---
SW following for discharge planning. Discussed with RN, pt is from home, has involved family, gets up and around fine. RN advised pt's EF is 20%. Pt having an EGD today. SW will continue to follow for any discharge planning needs.
[2018-09-16] MEDS ORDERED: IV RINGERS,LACTATED 1000ML 1,000 ML IV SCH (14:48)
[2018-09-16] MEDS: POLYETHYLENE GLYCOL 3350 17 GM PACKET. PO SCH (15:26)
[2018-09-16] MEDS: AMIODARONE HCL 200 MG TABLET. PO SCH (15:26)
--- NOTE | 2018-09-16 15:49 | NUR ---
Pt transferred for EGD at approximately 1340.
[2018-09-16 19:45] VITALS: BP 86/48
[2018-09-16] MEDS: SIMVASTATIN 20 MG TABLET PO SCH (20:50)
[2018-09-16 23:09] VITALS: BP 88/54
[2018-09-17 03:43] VITALS: BP 100/63
[2018-09-17 07:00] VITALS: BP 115/71
[2018-09-17] MEDS: CARVEDILOL 6.25 MG TABLET. PO SCH ×2 (08:00→17:00)
[2018-09-17] MEDS ORDERED: POTASSIUM CHLORIDE 20 MEQ TABLET.ER. PO SCH (08:00)
[2018-09-17] MEDS: BUMETANIDE 1 MG TABLET. PO SCH ×2 (09:00→20:40)
[2018-09-17] MEDS: AMIODARONE HCL 200 MG TABLET. PO SCH (09:51)
[2018-09-17] MEDS: POLYETHYLENE GLYCOL 3350 17 GM PACKET. PO SCH (09:51)
[2018-09-17] MEDS: MULTIVITAMIN with MINERAL TABLET. PO SCH (09:52)
[2018-09-17] MEDS: ASPIRIN CHEWABLE 81 MG TABLET. PO SCH (09:53)
[2018-09-17 11:00] VITALS: BP 114/70
--- NOTE | 2018-09-17 11:50 | PDOC3 ---
Discharge Summary Visit Information Date of Admission: September 15, 2018 Date of Discharge: September 17, 2018 Final Diagnosis Problems Medical Problems: (1) Acute on chronic renal failure Status: Acute (2) Congestive heart failure Status: Acute (3) Elevated liver function tests Status: Acute (4) Elevated troponin Status: Acute (5) Failure to thrive Status: Acute (6) Hypercalcemia Status: Acute (7) Hyponatremia Status: Acute (8) Leukopenia Status: Acute (9) Severe dehydration Status: Acute Brief Hospital Course Allergies Allergies Coded Allergies Type Severity Reaction Last Updated Verified No Known Drug Allergies 09/16/18 No Vital Signs Vital Signs Date Time Temp Pulse Resp B/P (MAP) Pulse Ox O2 Delivery O2 Flow Rate FiO2 09/17/18 09:51 60 115/71 09/17/18 08:00 Room Air 09/17/18 07:00 97.4 16 99 97.4 Lab Results Laboratory Tests Test 09/15/18 15:03 09/15/18 16:00 09/16/18 04:10 White Blood Count 3.4 x10^3/uL (4.0-11.0) Red Blood Count 5.90 x10^6/uL (3.50-5.40) Hemoglobin 16.5 g/dL (12.0-15.5) 14.8 g/dL (12.0-15.5) Hematocrit 50.6 % (36.0-47.0) 46.3 % (36.0-47.0) Mean Corpuscular Volume 86 fL (79-100) Mean Corpuscular Hemoglobin 28 pg (25-35) Mean Corpuscular Hemoglobin Concent 33 g/dL (31-37) 32 g/dL (31-37) Red Cell Distribution Width 15.9 % (11.5-14.5) Platelet Count 149 x10^3/uL (140-400) Neutrophils (%) (Auto) 51 % (31-73) Lymphocytes (%) (Auto) 33 % (24-48) Monocytes (%) (Auto) 15 % (0-9) Eosinophils (%) (Auto) 0 % (0-3) Basophils (%) (Auto) 1 % (0-3) Neutrophils # (Auto) 1.7 x10^3uL (1.8-7.7) Lymphocytes # (Auto) 1.1 x10^3/uL (1.0-4.8) Monocytes # (Auto) 0.5 x10^3/uL (0.0-1.1) Eosinophils # (Auto) 0.0 x10^3/uL (0.0-0.7) Basophils # (Auto) 0.0 x10^3/uL (0.0-0.2) Platelet Estimate Adequate (ADEQUATE) Giant Platelets Occ Prothrombin Time 15.0 SEC (11.7-14.0) Prothromb Time International Ratio 1.2 (0.8-1.1) Sodium Level 130 mmol/L (136-145) 134 mmol/L (136-145) Potassium Level 2.5 mmol/L (3.5-5.1) 2.8 mmol/L (3.5-5.1) Chloride Level 82 mmol/L (98-107) 90 mmol/L (98-107) Carbon Dioxide Level 39 mmol/L (21-32) 39 mmol/L (21-32) Anion Gap 9 (6-14) 5 (6-14) Blood Urea Nitrogen 135 mg/dL (7-20) 118 mg/dL (7-20) Creatinine 4.1 mg/dL (0.6-1.0) 3.4 mg/dL (0.6-1.0) Estimated GFR (Cockcroft-Gault) 12.5 15.6 BUN/Creatinine Ratio 33 (6-20) Glucose Level 127 mg/dL (70-99) 94 mg/dL (70-99) Lactic Acid Level 1.7 mmol/L (0.4-2.0) Calcium Level 10.8 mg/dL (8.5-10.1) 10.0 mg/dL (8.5-10.1) Magnesium Level 2.2 mg/dL (1.8-2.4) Total Bilirubin 2.1 mg/dL (0.2-1.0) 1.8 mg/dL (0.2-1.0) Aspartate Amino Transf (AST/SGOT) 104 U/L (15-37) 95 U/L (15-37) Alanine Aminotransferase (ALT/SGPT) 86 U/L (14-59) 79 U/L (14-59) Alkaline Phosphatase 106 U/L (46-116) 79 U/L (46-116) Creatine Kinase 72 U/L (26-192) Troponin I Quantitative 0.701 ng/mL (0.000-0.055) ZX-Csd-K-Type Natriuretic Peptide 61604 pg/mL (0-449) Total Protein 7.2 g/dL (6.4-8.2) 5.9 g/dL (6.4-8.2) Albumin 3.9 g/dL (3.4-5.0) 3.2 g/dL (3.4-5.0) Albumin/Globulin Ratio 1.2 (1.0-1.7) Lipase 97 U/L (73-393) Urine Collection Type Unknown Urine Color Yellow Urine Clarity Clear Urine pH 6.0 Urine Specific [place] 1.010 Urine Protein Negative mg/dL (NEG-TRACE) Urine Glucose (UA) Negative mg/dL (NEG) Urine Ketones (Stick) Negative mg/dL (NEG) Urine Blood Negative (NEG) Urine Nitrite Negative (NEG) Urine Bilirubin Negative (NEG) Urine Urobilinogen Dipstick 1.0 mg/dL (0.2 mg/dL) Urine Leukocyte Esterase Negative (NEG) Urine RBC Occ /HPF (0-2) Urine WBC Occ /HPF (0-4) Urine Squamous Epithelial Cells Few /LPF Urine Bacteria Few /HPF (0-FEW) Urine Hyaline Casts Few /HPF Urine Mucus Slight /LPF Direct Bilirubin 0.6 mg/dL (0.0-0.2) Brief Hospital Course Ms. Fay is a 83 old AA female, lives at home and daughter takes good care of her. Who presented with dysphagia and weight loss. PCP wanted an EGD hence subsequently admitted. Initially I had my doubts that they would do EGD because of low EF, 20% BUt they did, Hemodynamically stable with hemoconcentration actually an admission course: EGD done showed: IMP: GERD Perhaps reflux-induced dysmotility as cause of dysphagia. Doubt really has gastroparesis. CLeared for home with continuation of all home meds plus PPI. Also some Kcl as always hypokalemia here - on bumex at home by cards (EF 20%) Pt seen and Examined, discussed with RN Potassium 2.9, we are replacing 60 PO x 1, rpt K 2 PM. If Better than home today on PPI and KCl supplements. Rx on chart DC time 30 minutes greater than 31 mins DC education counseling Discharge Information Condition at Discharge: Improved, Stable Follow Up: Weeks (pcp) Disposition/Orders: D/C to Home Scheduled Amiodarone Hcl (Amiodarone Hcl) 200 Mg Tablet, 200 MG PO DAILY for 30 Days, #30 Ref 6 Prescribed by: RAFITA GOODMAN on 12/31/16 1653 Last Taken: Unknown Dose on 09/15/18 Last Action: Continued on 09/15/181721 by NEVILLE LAMA Carvedilol (Carvedilol ) 6.25 Mg Tablet, 1 TAB PO BID, #180 Ref 1 (Reported) Entered as Reported by: LUCILLE BLAND on 01/22/182110 Last Taken: Unknown Dose on 09/15/18 Last Action: Continued on 09/15/181721 by NEVILLE LAMA Furosemide (Furosemide) 40 Mg Tablet, 40 MG PO BID for CHF for 30 Days, #60 Prescribed by: HIPOLITO PHILLIPS MD on 07/01/18917 Last Action: HELD on 09/15/181721 by NEVILLE LAMA Potassium Chloride (Potassium Chloride) 20 Meq Tablet.er, 20 MEQ PO DAILY, (Reported) Entered as Reported by: CLAIRE BARNES RN on 01/23/18 1336 Last Taken: Unknown Dose on Unknown Date & Time Last Action: Converted on 09/15/181721 by NEVILLE LAMA Simvastatin (Simvastatin) 20 Mg Tablet, 20 MG PO HS for FOR CHOLESTEROL, #30 Ref 0 (Reported) Entered as Reported by: YUNG ROMANO on 10/06/16948 Last Taken: Unknown Dose on 09/14/18 Last Action: Converted on 09/15/181721 by NEVILLE LAMA Scheduled PRN Tramadol Hcl (Tramadol Hcl) 50 Mg Tablet, 50 MG PO PRN Q6-8HRS PRN for PAIN for 6 Days, #18 Prescribed by: HIPOLITO PHILLIPS MD on 07/01/18914 Last Taken: Unknown Dose on Unknown Date & Time Last Action: Continued on 09/15/181721 by NEVILLE LAMA Miscellaneous Medications Aspirin (Aspirin) 81 Mg Tab.chew, 81 MG PO, (Reported) Entered as Reported by: YUNG ROMANO on 6/13/17 0949 Last Taken: Unknown Dose on 09/15/18 Last Action: Continued on 09/15/181721 by NEVILLE LAMA Multivitamin (Multivitamins) 1 Each Tablet, 1 EACH PO, (Reported) Entered as Reported by: ANANT VELASQUEZ on 12/29/16 1000 Last Action: Converted on 09/15/181721 by NEVILLE SANON MD September 17, 2018 11:50
[2018-09-17] MEDS ORDERED: PANT20TA2 PO (11:53)
[2018-09-17] MEDS ORDERED: POTA20TA82 PO (11:53)
[2018-09-17] MEDS ORDERED: POTASSIUM CHLORIDE 20 MEQ TABLET.ER. PO ONE ×2 (12:00→14:00)
[2018-09-17 15:00] VITALS: BP 95/56
--- NOTE | 2018-09-17 18:31 | NUR ---
Discharge to home on hold until tomorrow. Will recheck K level in the morning.
[2018-09-17 19:15] VITALS: BP 88/52
[2018-09-17] MEDS: SIMVASTATIN 20 MG TABLET PO SCH (20:36)
[2018-09-17] MEDS: POTASSIUM CHLORIDE 20 MEQ TABLET.ER. PO SCH (20:37)
[2018-09-17 23:15] VITALS: BP 89/54
[2018-09-18 03:18] VITALS: BP 90/48
[2018-09-18 07:00] VITALS: BP 91/52
[2018-09-18] MEDS: CARVEDILOL 6.25 MG TABLET. PO SCH ×2 (08:00→17:00)
[2018-09-18] MEDS: ASPIRIN CHEWABLE 81 MG TABLET. PO SCH (08:18)
[2018-09-18] MEDS: POTASSIUM CHLORIDE 20 MEQ TABLET.ER. PO SCH (08:20)
[2018-09-18] MEDS: MULTIVITAMIN with MINERAL TABLET. PO SCH (08:20)
[2018-09-18] MEDS: AMIODARONE HCL 200 MG TABLET. PO SCH (08:29)
[2018-09-18] MEDS: BUMETANIDE 1 MG TABLET. PO SCH ×2 (08:29→20:50)
[2018-09-18] MEDS: POLYETHYLENE GLYCOL 3350 17 GM PACKET. PO SCH (08:30)
[2018-09-18 11:00] VITALS: BP 109/66
--- NOTE | 2018-09-18 11:49 | PDOC ---
PROGRESS NOTES Chief Complaint Chief Complaint GERD Perhaps reflux-induced dysmotility as cause of dysphagia. Doubt really has gastroparesis. s/p EGD Hypokalemia in the background of Bumex use Geriatric Full code History of Present Illness History of Present Illness Potassium is now 4.7 after multiple replacements during the days Eating some Daughters now want SNU instead of going home Plan Continue Bumex 2 g twice a day as her home dose DC KCl supplements for now-potassium is already 4.7 PPI as per GI - Rx all on chart Social work consult for SNU-they would like to go to [facility] Make MiraLAX when necessary,instead of KASSIDY Vitals Vitals Vital Signs Date Time Temp Pulse Resp B/P (MAP) Pulse Ox O2 Delivery O2 Flow Rate FiO2 09/18/18 08:29 60 90/48 09/18/18 07:00 98.1 16 99 Room Air 98.1 Physical Exam General: Alert, Oriented X3, Cooperative, No acute distress, Other (weak looking but not in distress) Lungs: Clear Abdomen: Normal bowel sounds, Soft, No tenderness, No hepatosplenomegaly, No masses Extremities: No clubbing, No cyanosis, No edema, Normal pulses, No tenderness/swelling Skin: No rashes, No breakdown, No significant lesion, Other (very dry, senile skin turgor) Labs LABS Laboratory Tests Test 09/17/18 13:00 09/18/18 03:55 Potassium Level 3.4 mmol/L (3.5-5.1) 4.7 mmol/L (3.5-5.1) Review of Systems Review of Systems A 14 point ROS was completed with the following noted as positive: Other systems reviewed and negative. \CONSTITUTIONAL: No fever or chills EYES: No recent changes SKIN: No rash or itching CARDIOVASCULAR: No chest pain, syncope, palpitations, or edema RESPIRATORY: No SOB or cough GASTROINTESTINAL: No nausea, vomiting or abdominal pain NEUROLOGICAL: No headaches or weakness ENDOCRINE: No cold or heat intolerance GENITOURINARY: No urgency or frequency of urination MUSCULOSKELETAL: No back pain or joint pain LYMPHATICS: No enlarged lymph nodes PSYCHIATRIC: No anxiety or depression Assessment and Plan Assessmemt and Plan Problems Medical Problems: (1) Acute on chronic renal failure Status: Acute (2) Congestive heart failure Status: Acute (3) Elevated liver function tests Status: Acute (4) Elevated troponin Status: Acute (5) Failure to thrive Status: Acute (6) Hypercalcemia Status: Acute (7) Hyponatremia Status: Acute (8) Leukopenia Status: Acute (9) Severe dehydration Status: Acute Comment Review of Relevant I have reviewed the following items rufino (where applicable) has been applied. Labs Laboratory Tests Test 09/17/18 13:00 09/18/18 03:55 Potassium Level 3.4 mmol/L (3.5-5.1) 4.7 mmol/L (3.5-5.1) Laboratory Tests Test 09/17/18 13:00 09/18/18 03:55 Potassium Level 3.4 mmol/L (3.5-5.1) 4.7 mmol/L (3.5-5.1) Medications Current Medications Potassium Chloride/Water 100 ml @ 100 mls/hr Q1H IV Last administered on 08/25 16:08; Start 09/15/18 at 16:00; Stop 09/15/18 at 16:59; Status DC Sodium Chloride 500 ml @ 500 mls/hr 1X ONCE IV Last administered on 09/15/18at 16:09; Start 09/15/18 at 16:00; Stop 09/15/18 at 16:59; Status DC Sodium Chloride 1,000 ml @ 125 mls/hr Q8H IV Last administered on 09/16/18at 15:28; Start 09/15/18 at 16:24; Stop 09/16/18 at 16:23; Status DC Potassium Chloride (KCl Oral Soln) 40 meq 1X ONCE PO Last administered on 09/15/18at 18:14; Start 09/15/18 at 16:30; Stop 09/15/18 at 16:31; Status DC Sodium Chloride 1,000 ml @ 1,000 mls/hr 1X ONCE IV ; Start 09/15/18 at 16:30; Stop 09/15/18 at 17:29; Status DC Potassium Chloride (Klor-Con) 40 meq 1X ONCE PO Last administered on 09/15/18at 18:15; Start 09/15/18 at 17:30; Stop 09/15/18 at 17:31; Status DC Amiodarone HCl (Cordarone) 200 mg DAILY PO Last administered on 09/17/18at 09:51; Start 09/16/18 at 09:00 Aspirin (Children'S Aspirin) 81 mg DAILY PO Last administered on 09/18/18 08:18; Start 09/16/18 at 09:00 Carvedilol (Coreg) 6.25 mg BIDWMEALS PO Last administered on 09/17/18 08:00; Start 09/15/18 at 17:30 Tramadol HCl (Ultram) 50 mg PRN QID PRN PO MILD TO MODERATE PAIN Last administered on 09/16/18 03:06; Start 09/15/18 at 17:30 Potassium Chloride (Klor-Con) 20 meq DAILYWBKFT PO Last administered on 09/17/18 09:52; Start 09/17/18 at 08:00; Stop 09/17/18 at 16:55; Status DC Simvastatin (Zocor) 20 mg HS PO Last administered on 09/17/18 20:36; Start 09/15/18 at 21:00 Multivitamins (Thera M Plus) 1 tab DAILY PO Last administered on 09/18/18 08:20; Start 09/16/18 at 09:00 Bumetanide (Bumex) 2 mg BID PO ; Start 09/17/18 at 09:00 Potassium Chloride (Klor-Con) 20 meq TID PO Last administered on 09/16/18 20:49; Start 09/16/18 at 06:00; Stop 09/16/18 at 21:01; Status DC Polyethylene Glycol (miraLAX PACKET) 17 gm DAILY PO Last administered on 09/17/18 09:51; Start 09/16/18 at 12:00 Midazolam HCl (Versed) 2 mg PRN 1X PRN IV PRIOR TO PROCEDURE; Start 09/16/18 at 13:00; Stop 09/17/18 at 12:59; Status DC Fentanyl Citrate (Fentanyl 2ml Vial) 25 mcg PRN Q5MIN PRN IV X 2 DOSES FOR PAIN; Start 09/16/18 at 13:00; Stop 09/17/18 at 12:59; Status DC Fentanyl Citrate (Fentanyl 2ml Vial) 50 mcg PRN Q5MIN PRN IV X 2 DOSES FOR PAIN; Start 09/16/18 at 13:00; Stop 09/16/18 at 18:00; Status DC Sodium Chloride 1,000 ml @ 125 mls/hr Q8H IV ; Start 09/16/18 at 12:57; Stop 09/17/18 at 00:56; Status DC Lidocaine HCl (Xylocaine-Mpf 1% 2ml Vial) 2 ml 1X PRN PRN ID IV START; Start 09/16/18 at 13:00; Stop 09/17/18 at 12:59; Status DC Propofol 20 ml @ As Directed STK-MED ONCE IV ; Start 09/16/18 at 14:03; Stop 09/16/18 at 14:04; Status DC Lidocaine HCl (Lidocaine Pf 2% Vial) 5 ml STK-MED ONCE .ROUTE ; Start 09/16/18 at 14:03; Stop 09/16/18 at 14:04; Status DC Ringer's Solution 1,000 ml @ 50 mls/hr Q20H IV ; Start 09/16/18 at 14:48; Stop 09/17/18 at 02:47; Status DC Potassium Chloride (Klor-Con) 40 meq 1X ONCE PO Last administered on 09/17/18at 12:00; Start 09/17/18 at 12:00; Stop 09/17/18 at 12:01; Status DC Potassium Chloride (Klor-Con) 20 meq 1X ONCE PO Last administered on 09/17/18at 15:51; Start 09/17/18 at 14:00; Stop 09/17/18 at 14:01; Status DC Potassium Chloride (Klor-Con) 40 meq BID PO Last administered on 09/18/18at 08:20; Start 09/17/18 at 21:00; Stop 09/18/18 at 09:10; Status DC Active Scripts Active Potassium Chloride 20 Meq Tablet.er 40 Meq PO DAILY Protonix (Pantoprazole Sodium) 20 Mg Tablet.dr 40 Mg PO DAILY Tramadol Hcl 50 Mg Tablet 50 Mg PO PRN Q6-8HRS PRN 6 Days Amiodarone Hcl 200 Mg Tablet 200 Mg PO DAILY 30 Days Reported Potassium Chloride 20 Meq Tablet.er 20 Meq PO DAILY Carvedilol (Carvedilol) 6.25 Mg Tablet 1 Tab PO BID Multivitamins (Multivitamin) 1 Each Tablet 1 Each PO Simvastatin 20 Mg Tablet 20 Mg PO HS Aspirin 81 Mg Tab.chew 81 Mg PO Vitals/I & O Vital Sign - Last 24 Hours 09/17/18 09/17/18 09/17/18 09/17/18 15:00 17:00 19:15 23:15 Temp 97.5 98.1 98.1 97.5 98.1 98.1 Pulse 60 60 61 Resp 16 16 16 B/P (MAP) 95/56 (69) 95/56 88/52 (64) 89/54 (66) Pulse Ox 98 99 100 O2 Delivery Room Air Room Air Room Air 09/18/18 09/18/18 09/18/18 09/18/18 03:18 07:00 08:00 08:29 Temp 98.1 98.1 98.1 98.1 Pulse 60 60 60 60 Resp 18 16 B/P (MAP) 90/48 (62) 91/52 (65) 90/48 90/48 Pulse Ox 96 99 O2 Delivery Room Air Room Air Intake and Output 09/17/18 09/17/18 09/18/18 15:00 23:00 07:00 Intake Total 100 ml Balance 100 ml Nutrition Consultation Dietary Evaluation: Recommendations by RD: Increase Calorie Intake, Protein supplementation Comments: strawberry ensure bid when able Expected Outcomes/Goals: to meet > 75% est nutr needs Interpretation of weight loss: >7.5% in 3 months Malnutrition Findings: Food and Nutrition Intake (Mod: <75% est energy req 7days Body Fat Depletion (Non Severe: Mild Depletion Weight Status: Underweight NEVILLE LAMA MD September 18, 2018 11:49
[2018-09-18] MEDS ORDERED: POLYETHYLENE GLYCOL 3350 17 GM PACKET. PO PRN (12:00)
[2018-09-18 15:00] VITALS: BP 86/49
[2018-09-18 19:33] VITALS: BP 93/54
[2018-09-18] MEDS: SIMVASTATIN 20 MG TABLET PO SCH (20:50)
[2018-09-18 23:50] VITALS: BP 93/57
[2018-09-19 03:13] VITALS: BP 101/58
[2018-09-19 07:00] VITALS: BP 114/73
[2018-09-19] MEDS: MULTIVITAMIN with MINERAL TABLET. PO SCH (08:33)
[2018-09-19] MEDS: BUMETANIDE 1 MG TABLET. PO SCH (08:33)
[2018-09-19] MEDS: CARVEDILOL 6.25 MG TABLET. PO SCH ×2 (08:34→17:15)
[2018-09-19] MEDS: AMIODARONE HCL 200 MG TABLET. PO SCH (08:34)
[2018-09-19] MEDS: ASPIRIN CHEWABLE 81 MG TABLET. PO SCH (08:34)
--- NOTE | 2018-09-19 10:06 | SNU/HH DC ---
DISCHARGE ORDERS DISCHARGE INFORMATION: DISCHARGE DATE: September 19, 2018 FINAL DIAGNOSIS Problems Medical Problems: (1) Acute on chronic renal failure Status: Acute (2) Congestive heart failure Status: Acute (3) Elevated liver function tests Status: Acute (4) Elevated troponin Status: Acute (5) Failure to thrive Status: Acute (6) Hypercalcemia Status: Acute (7) Hyponatremia Status: Acute (8) Leukopenia Status: Acute (9) Severe dehydration Status: Acute CONDITION ON DISCHARGE: Stable CODE STATUS: Code Status: Full [facility]: SNF STAY <30 DAYS: Yes POST DISCHARGE ORDERS: ACTIVITY ORDERS: Activity as tolerated WEIGHT BEARING STATUS: As tolerated DIET AFTER DISCHARGE: Cardiac CHECKS AFTER DISCHARGE: CHECKS AFTER DISCHARGE: Check blood press - daily, Weigh Yourself Daily FOLLOW-UP: PHYSICIAN FOLLOW-UP: primary care < 2 weeks LAB ORDERS FOR FOLLOW-UP: chemistry 1 week, TREATMENT/EQUIPMENT ORDERS: ADAPTIVE EQUIPMENT NEEDED: Four wheeled walker Physical Therapy For: Evalulation/Treatment Occupational Therapy For: Evaluation/Treatment DISCHARGE MEDICATIONS: Home Meds Active Scripts Bumetanide (BUMETANIDE) 1 Mg Tablet, 2 MG PO DAILY for chf, #30 TAB Prov:SOFIA GARZA MD 09/19/18 Potassium Chloride (POTASSIUM CHLORIDE) 20 Meq Tablet.er, 40 MEQ PO DAILY for hypokal, #30 TAB.SR Prov:NEVILLE LAMA MD 09/17/18 Pantoprazole Sodium (PROTONIX) 20 Mg Tablet.dr, 40 MG PO DAILY for GERD, #60 TAB Prov:NEVILLE LAMA MD 09/17/18 Tramadol Hcl (TRAMADOL HCL) 50 Mg Tablet, 50 MG PO PRN Q6-8HRS PRN for PAIN for 6 Days, #18 TAB Prov:HIPOLITO PHILLIPS MD 07/01/18 Amiodarone Hcl (AMIODARONE HCL) 200 Mg Tablet, 200 MG PO DAILY for 30 Days, #30 TAB 6 Refills Prov:RAFITA GOODMAN MD 12/31/16 Reported Medications Potassium Chloride (POTASSIUM CHLORIDE) 20 Meq Tablet.er, 20 MEQ PO DAILY, TAB.SR 01/23/18 Carvedilol (CARVEDILOL ) 6.25 Mg Tablet, 1 TAB PO BID, #180 TAB 1 Refill 01/22/18 Multivitamin (MULTIVITAMINS) 1 Each Tablet, 1 EACH PO, TAB 12/29/16 Simvastatin (SIMVASTATIN) 20 Mg Tablet, 20 MG PO HS for FOR CHOLESTEROL, #30 TAB 0 Refills 10/06/16 Aspirin (ASPIRIN) 81 Mg Tab.chew, 81 MG PO, TAB.CHEW 10/06/16 Discontinued Scripts Furosemide (FUROSEMIDE) 40 Mg Tablet, 40 MG PO BID for CHF for 30 Days, #60 TAB Prov:HIPOLITO PHILLIPS MD 07/01/18 SOFIA GARZA MD September 19, 2018 10:06
[2018-09-19] MEDS ORDERED: BUME1TAB3 PO ×2 (10:08→10:12)
--- NOTE | 2018-09-19 10:15 | PDOC3 ---
Discharge Summary Visit Information Date of Admission: September 15, 2018 Date of Discharge: September 20, 2018 Admitting Diagnosis: dysphagia Final Diagnosis dehydration acute on chronic renal failure weakness and debility CHF, acute on chronic diastolic failure hypokalemia Problems Medical Problems: (1) Acute on chronic renal failure Status: Acute (2) Congestive heart failure Status: Acute (3) Elevated liver function tests Status: Acute (4) Elevated troponin Status: Acute (5) Failure to thrive Status: Acute (6) Hypercalcemia Status: Acute (7) Hyponatremia Status: Acute (8) Leukopenia Status: Acute (9) Severe dehydration Status: Acute Brief Hospital Course Allergies Allergies Coded Allergies Type Severity Reaction Last Updated Verified No Known Drug Allergies 09/16/18 No Vital Signs Vital Signs Date Time Temp Pulse Resp B/P (MAP) Pulse Ox O2 Delivery O2 Flow Rate FiO2 09/19/18 08:34 60 114/73 09/19/18 08:00 Room Air 09/19/18 07:00 97.8 18 98 97.8 Lab Results Laboratory Tests Test 09/17/18 13:00 09/18/18 03:55 Potassium Level 3.4 mmol/L (3.5-5.1) 4.7 mmol/L (3.5-5.1) Brief Hospital Course Ms. Fay is a 83 old AA female, lives at home and daughter, admit with dysphagia and weight loss. better PO itnake, course: EGD done showed: IMP: GERD Perhaps reflux-induced dysmotility as cause of dysphagia. Doubt really has gastroparesis. cont home meds plus PP Potassium 2.9, we are replacing 60 PO x 1, rpt K 2 PM. bumex decreased due to low PO intake, labs Discharge Information Condition at Discharge: Improved Follow Up: Weeks Disposition/Orders: D/C to Another Facility (skilled) Scheduled Amiodarone Hcl (Amiodarone Hcl) 200 Mg Tablet, 200 MG PO DAILY for 30 Days, #30 Ref 6 Prescribed by: RAFITA GOODMAN on 12/31/16 1653 Last Taken: Unknown Dose on 09/15/18 Last Action: Continued on 09/15/18 1722 by NEVILLE LAMA Bumetanide (Bumetanide) 1 Mg Tablet, 2 MG PO DAILY for chf, #30 Prescribed by: SOFIA GARZA on 09/19/18 1012 Carvedilol (Carvedilol ) 6.25 Mg Tablet, 1 TAB PO BID, #180 Ref 1 (Reported) Entered as Reported by: LUCILLE BLAND on 01/22/182110 Last Taken: Unknown Dose on 09/15/18 Last Action: Continued on 09/15/181721 by NEVILLE LAMA Pantoprazole Sodium (Protonix) 20 Mg Tablet.dr, 40 MG PO DAILY for GERD, #60 Prescribed by: NEVILLE LAMA on 09/17/18 1153 Potassium Chloride (Potassium Chloride) 20 Meq Tablet.er, 20 MEQ PO DAILY, (Reported) Entered as Reported by: CLAIRE BARNES RN on 01/23/18 1336 Last Taken: Unknown Dose on Unknown Date & Time Last Action: Converted on 09/15/181721 by NEVILLE LAMA Potassium Chloride (Potassium Chloride) 20 Meq Tablet.er, 40 MEQ PO DAILY for hypokal, #30 Prescribed by: NEVILLE LAMA on 09/17/18 1153 Simvastatin (Simvastatin) 20 Mg Tablet, 20 MG PO HS for FOR CHOLESTEROL, #30 Ref 0 (Reported) Entered as Reported by: YUNG ROMANO on 10/06/16 0949 Last Taken: Unknown Dose on 09/14/18 Last Action: Converted on 09/15/181721 by NEVILLE LAMA Scheduled PRN Tramadol Hcl (Tramadol Hcl) 50 Mg Tablet, 50 MG PO PRN Q6-8HRS PRN for PAIN for 6 Days, #18 Prescribed by: HIPOLITO PHILLIPS MD on 07/01/18 0915 Last Taken: Unknown Dose on Unknown Date & Time Last Action: Continued on 09/15/181721 by NEVILLE LAMA Miscellaneous Medications Aspirin (Aspirin) 81 Mg Tab.chew, 81 MG PO, (Reported) Entered as Reported by: YUNG ROMANO on 10/06/16 0949 Last Taken: Unknown Dose on 09/15/18 Last Action: Continued on 09/15/181721 by NEVILLE LAMA Multivitamin (Multivitamins) 1 Each Tablet, 1 EACH PO, (Reported) Entered as Reported by: ANANT VELASQUEZ on 12/29/16 1000 Last Action: Converted on 09/15/181721 by NEVILLE LAMA Discontinued Medications Furosemide (Furosemide) 40 Mg Tablet, 40 MG PO BID for CHF for 30 Days, #60 Prescribed by: HIPOLITO PHILLIPS MD on 07/01/18917 Last Action: HELD on 09/15/181721 by NEVILLE LAMA Patient Instructions Patient Instructions > 30 min face to face 2 visits SOFIA GARZA MD September 19, 2018 10:15
--- NOTE | 2018-09-19 10:31 | PDOC ---
PROGRESS NOTES Chief Complaint Chief Complaint hypovoelamia CHF, chronic systolic GERD Perhaps reflux-induced dysmotility as cause of dysphagia. Doubt really has gastroparesis. s/p EGD Hypokalemia in the background of Bumex use Geriatric Full code History of Present Illness History of Present Illness K+ better Eating some Daughters now want SNU instead of going home, plan to transfer to [facility] Continue Bumex 2 g - change to daily labs in AM if still here, try to DC to SNU DC KCl supplements for now-potassium is already 4.7 PPI as per GI - Rx all on chart Vitals Vitals Vital Signs Date Time Temp Pulse Resp B/P (MAP) Pulse Ox O2 Delivery O2 Flow Rate FiO2 09/19/18 08:34 60 114/73 09/19/18 08:00 Room Air 09/19/18 07:00 97.8 18 98 97.8 Physical Exam General: Alert, Oriented X3, Cooperative, No acute distress, Other (weak looking but not in distress) Lungs: Clear Abdomen: Normal bowel sounds, Soft, No tenderness, No hepatosplenomegaly, No masses Extremities: No clubbing, No cyanosis, No edema, Normal pulses, No tenderness/swelling Skin: No rashes, No breakdown, No significant lesion, Other (very dry, senile skin turgor) Assessment and Plan Assessmemt and Plan Problems Medical Problems: (1) Acute on chronic renal failure Status: Acute (2) Congestive heart failure Status: Acute (3) Elevated liver function tests Status: Acute (4) Elevated troponin Status: Acute (5) Failure to thrive Status: Acute (6) Hypercalcemia Status: Acute (7) Hyponatremia Status: Acute (8) Leukopenia Status: Acute (9) Severe dehydration Status: Acute Comment Review of Relevant I have reviewed the following items rufino (where applicable) has been applied. Labs Laboratory Tests Test 09/17/18 13:00 09/18/18 03:55 Potassium Level 3.4 mmol/L (3.5-5.1) 4.7 mmol/L (3.5-5.1) Medications Current Medications Potassium Chloride/Water 100 ml @ 100 mls/hr Q1H IV Last administered on 09/15/18at 16:08; Start 09/15/18 at 16:00; Stop 09/15/18 at 16:59; Status DC Sodium Chloride 500 ml @ 500 mls/hr 1X ONCE IV Last administered on 09/15/18 16:09; Start 09/15/18 at 16:00; Stop 09/15/18 at 16:59; Status DC Sodium Chloride 1,000 ml @ 125 mls/hr Q8H IV Last administered on 09/16/18 15:28; Start 09/15/18 at 16:24; Stop 09/16/18 at 16:23; Status DC Potassium Chloride (KCl Oral Soln) 40 meq 1X ONCE PO Last administered on 09/15/18 18:14; Start 09/15/18 at 16:30; Stop 09/15/18 at 16:31; Status DC Sodium Chloride 1,000 ml @ 1,000 mls/hr 1X ONCE IV ; Start 09/15/18 at 16:30; Stop 09/15/18 at 17:29; Status DC Potassium Chloride (Klor-Con) 40 meq 1X ONCE PO Last administered on 09/15/18 18:15; Start 09/15/18 at 17:30; Stop 09/15/18 at 17:31; Status DC Amiodarone HCl (Cordarone) 200 mg DAILY PO Last administered on 09/19/18 08:34; Start 09/16/18 at 09:00 Aspirin (Children'S Aspirin) 81 mg DAILY PO Last administered on 09/19/18 08:34; Start 09/16/18 at 09:00 Carvedilol (Coreg) 6.25 mg BIDWMEALS PO Last administered on 09/19/18 08:34; Start 09/15/18 at 17:30 Tramadol HCl (Ultram) 50 mg PRN QID PRN PO MILD TO MODERATE PAIN Last administered on 09/16/18 03:06; Start 09/15/18 at 17:30 Potassium Chloride (Klor-Con) 20 meq DAILYWBKFT PO Last administered on 09/17/18 09:52; Start 09/17/18 at 08:00; Stop 09/17/18 at 16:55; Status DC Simvastatin (Zocor) 20 mg HS PO Last administered on 09/18/18 20:50; Start 09/15/18 at 21:00 Multivitamins (Thera M Plus) 1 tab DAILY PO Last administered on 5/27/19at 08:33; Start 09/16/18 at 09:00 Bumetanide (Bumex) 2 mg BID PO Last administered on 09/19/18at 08:33; Start 09/17/18 at 09:00 Potassium Chloride (Klor-Con) 20 meq TID PO Last administered on 09/16/18at 20:49; Start 09/16/18 at 06:00; Stop 09/16/18 at 21:01; Status DC Polyethylene Glycol (miraLAX PACKET) 17 gm DAILY PO Last administered on 09/17/18at 09:51; Start 09/16/18 at 12:00; Stop 09/18/18 at 11:47; Status DC Midazolam HCl (Versed) 2 mg PRN 1X PRN IV PRIOR TO PROCEDURE; Start 09/16/18 at 13:00; Stop 09/17/18 at 12:59; Status DC Fentanyl Citrate (Fentanyl 2ml Vial) 25 mcg PRN Q5MIN PRN IV X 2 DOSES FOR PAIN; Start 09/16/18 at 13:00; Stop 09/17/18 at 12:59; Status DC Fentanyl Citrate (Fentanyl 2ml Vial) 50 mcg PRN Q5MIN PRN IV X 2 DOSES FOR PAIN; Start 09/16/18 at 13:00; Stop 09/16/18 at 18:00; Status DC Sodium Chloride 1,000 ml @ 125 mls/hr Q8H IV ; Start 09/16/18 at 12:57; Stop 09/17/18 at 00:56; Status DC Lidocaine HCl (Xylocaine-Mpf 1% 2ml Vial) 2 ml 1X PRN PRN ID IV START; Start 09/16/18 at 13:00; Stop 09/17/18 at 12:59; Status DC Propofol 20 ml @ As Directed STK-MED ONCE IV ; Start 09/16/18 at 14:03; Stop 09/16/18 at 14:04; Status DC Lidocaine HCl (Lidocaine Pf 2% Vial) 5 ml STK-MED ONCE .ROUTE ; Start 09/16/18 at 14:03; Stop 09/16/18 at 14:04; Status DC Ringer's Solution 1,000 ml @ 50 mls/hr Q20H IV ; Start 09/16/18 at 14:48; Stop 09/17/18 at 02:47; Status DC Potassium Chloride (Klor-Con) 40 meq 1X ONCE PO Last administered on 09/17/18at 12:00; Start 09/17/18 at 12:00; Stop 09/17/18 at 12:01; Status DC Potassium Chloride (Klor-Con) 20 meq 1X ONCE PO Last administered on 09/17/18at 15:51; Start 09/17/18 at 14:00; Stop 09/17/18 at 14:01; Status DC Potassium Chloride (Klor-Con) 40 meq BID PO Last administered on 09/18/18at 08:20; Start 09/17/18 at 21:00; Stop 09/18/18 at 09:10; Status DC Polyethylene Glycol (miraLAX PACKET) 17 gm PRN DAILY PRN PO constipation; Start 09/18/18 at 12:00 Active Scripts Active Bumetanide 1 Mg Tablet 2 Mg PO DAILY Potassium Chloride 20 Meq Tablet.er 40 Meq PO DAILY Protonix (Pantoprazole Sodium) 20 Mg Tablet.dr 40 Mg PO DAILY Tramadol Hcl 50 Mg Tablet 50 Mg PO PRN Q6-8HRS PRN 6 Days Amiodarone Hcl 200 Mg Tablet 200 Mg PO DAILY 30 Days Reported Potassium Chloride 20 Meq Tablet.er 20 Meq PO DAILY Carvedilol (Carvedilol) 6.25 Mg Tablet 1 Tab PO BID Multivitamins (Multivitamin) 1 Each Tablet 1 Each PO Simvastatin 20 Mg Tablet 20 Mg PO HS Aspirin 81 Mg Tab.chew 81 Mg PO Vitals/I & O Vital Sign - Last 24 Hours 09/18/18 09/18/18 09/18/18 09/18/18 11:00 15:00 17:00 19:33 Temp 97.5 98.2 97.7 97.5 98.2 97.7 Pulse 61 60 60 60 Resp 16 16 16 B/P (MAP) 109/66 (80) 86/49 (61) 86/49 93/54 (67) Pulse Ox 99 97 97 O2 Delivery Room Air Room Air Room Air 09/18/18 09/18/18 09/19/18 09/19/18 20:04 23:50 03:13 07:00 Temp 98.1 97.8 97.8 98.1 97.8 97.8 Pulse 60 62 60 Resp 18 18 18 B/P (MAP) 93/57 (69) 101/58 (72) 114/73 (87) Pulse Ox 97 96 98 O2 Delivery Room Air Room Air Room Air Room Air 09/19/18 09/19/18 09/19/18 08:00 08:34 08:34 Pulse 60 60 B/P (MAP) 114/73 114/73 O2 Delivery Room Air l Intake and Output 09/18/18 09/18/18 09/19/18 15:00 23:00 07:00 Intake Total 650 ml 420 ml Balance 650 ml 420 ml Nutrition Consultation Dietary Evaluation: Recommendations by RD: Increase Calorie Intake, Protein supplementation Comments: strawberry ensure bid when able Expected Outcomes/Goals: to meet > 75% est nutr needs Interpretation of weight loss: >7.5% in 3 months Malnutrition Findings: Food and Nutrition Intake (Mod: <75% est energy req 7days Body Fat Depletion (Non Severe: Mild Depletion Weight Status: Underweight SOFIA GARZA MD September 19, 2018 10:31
[2018-09-19 10:40] VITALS: BP 111/67
--- NOTE | 2018-09-19 14:41 | PDOC ---
G I PROGRESS NOTE Subjective Says swallowing better. Objective Note plans for discharge. Physical Exam Lungs clear. RRR Abdomen soft, not tender. Review of Relevant I have reviewed the following items rufino (where applicable) has been applied. Labs Laboratory Tests Test 09/18/18 03:55 Potassium Level 4.7 mmol/L (3.5-5.1) Vitals/I & O Vital Sign - Last 24 Hours 09/18/18 09/18/18 09/18/18 09/18/18 15:00 17:00 19:33 20:04 Temp 98.2 97.7 98.2 97.7 Pulse 60 60 60 Resp 16 16 B/P (MAP) 86/49 (61) 86/49 93/54 (67) Pulse Ox 97 97 O2 Delivery Room Air Room Air Room Air 09/18/18 09/19/18 09/19/18 09/19/18 23:50 03:13 07:00 08:00 Temp 98.1 97.8 97.8 98.1 97.8 97.8 Pulse 60 62 60 Resp 18 18 18 B/P (MAP) 93/57 (69) 101/58 (72) 114/73 (87) Pulse Ox 97 96 98 O2 Delivery Room Air Room Air Room Air Room Air 09/19/18 09/19/18 09/19/18 08:34 08:34 10:40 Temp 97.8 97.8 Pulse 60 60 68 Resp 18 B/P (MAP) 114/73 114/73 111/67 (82) Pulse Ox 97 O2 Delivery Room Air Intake and Output 09/18/18 09/18/18 09/19/18 15:00 23:00 07:00 Intake Total 650 ml 420 ml Balance 650 ml 420 ml Problem List Problems Medical Problems: (1) Acute on chronic renal failure Status: Acute (2) Congestive heart failure Status: Acute (3) Elevated liver function tests Status: Acute (4) Elevated troponin Status: Acute (5) Failure to thrive Status: Acute (6) Hypercalcemia Status: Acute (7) Hyponatremia Status: Acute (8) Leukopenia Status: Acute (9) Severe dehydration Status: Acute Assessment GERD/dysphagia, improved. Plan of Care: Continue current Tx, Mgmt Plan of Care Note Would leave on PPI chronically. BLAKE GRAY MD September 19, 2018 14:41
[2018-09-19 15:00] VITALS: BP 112/70
[2018-09-19 19:00] VITALS: BP 110/72
[2018-09-19] MEDS: SIMVASTATIN 20 MG TABLET PO SCH (21:06)
[2018-09-19 22:54] VITALS: BP 91/53
[2018-09-20] MEDS: traMADol 50 MG TABLET PO PRN (01:18)
[2018-09-20 03:00] VITALS: BP 104/53
[2018-09-20 04:39] LABS: CALCIUM 9.9 mg/dL (8.5-10.1); CREATININE 2.3 mg/dL (0.6-1.0); GFR 24.4; POTASSIUM 3.7 mmol/L (3.5-5.1)
[2018-09-20 07:00] VITALS: BP 115/68
--- NOTE | 2018-09-20 08:46 | NUR ---
SW following Pt. Pt has discharge orders for SNU. Chart reviewed and last recommendation from PT/OT was home for 24 hour care and SNU referral was faxed to [facility] in [place] by nursing cafeteria supervisor. KYLE met with Pt and Pt's daughter, Estrellita, phone: [phone] about SNU evaluation process. Pt and daughter reports pt is not in a condition to return back home and needs SNU placement to help with her strength. Pt also lives alone and family is not able to provide 24 hour care at this time. Pt and daughter are interested in pt going to [facility]. PT/OT is re-ordered and KYLE spoke with PT department regarding situation. KYLE also left a voice mail to Hodan Lamar at [facility] requesting a call back. SW will await for PT/OT evaluation and will fax referral. Pt and daughter are aware insurance approval is needed before dc to SNU and are informed of medicare coverage for SNU. Discussed with RN.
[2018-09-20] MEDS: MULTIVITAMIN with MINERAL TABLET. PO SCH (08:59)
[2018-09-20] MEDS: ASPIRIN CHEWABLE 81 MG TABLET. PO SCH (08:59)
[2018-09-20] MEDS: CARVEDILOL 6.25 MG TABLET. PO SCH ×2 (08:59→16:31)
[2018-09-20] MEDS: AMIODARONE HCL 200 MG TABLET. PO SCH (09:00)
[2018-09-20] MEDS ORDERED: BUMETANIDE 1 MG TABLET. PO SCH (09:00)
--- NOTE | 2018-09-20 10:22 | PDOC ---
Subjective: Subjective: Did eat as much breakfast today - denies pain, denies dysphagia - just didn't feel like it. Objective: Objective: Reviewed w/ RN/staff - ate very well yesterday (but "takes her time"), ate ~50% of breakfast this morning, possible DC to SNU today - mentions will go on Protonix. Vital Signs: Vital Signs Date Time Temp Pulse Resp B/P (MAP) Pulse Ox O2 Delivery O2 Flow Rate FiO2 09/20/18 09:00 82 115/68 09/20/18 08:00 Room Air 09/20/18 07:00 97.9 18 98 97.9 Labs: Laboratory Tests Test 09/20/18 03:05 Sodium Level 140 mmol/L Potassium Level 3.7 mmol/L Chloride Level 100 mmol/L Carbon Dioxide Level 33 mmol/L Anion Gap 7 Blood Urea Nitrogen 72 mg/dL Creatinine 2.3 mg/dL Estimated GFR (Cockcroft-Gault) 24.4 Glucose Level 101 mg/dL Calcium Level 9.9 mg/dL Imaging: EGD 09/16 E--Healed, baseline grade indeterminate, esophagitis at 40cm. G--Some retained food, but only 5 hours or so post-meal. D--Normal to second. -52F Manzanares dilator passed empirically w/o resistance. PE: GEN: NAD LUNGS: CTAB HEART: RRR ABD: NABS, S/ND/NT NEURO/PSYCH: A & O 3 A/P: GERD/dysphagia -- DC per primary on chronic PPI - not on her list, will order. ENRIQUE NELSON September 20, 2018 10:22
[2018-09-20 11:00] VITALS: BP 99/54
--- NOTE | 2018-09-20 11:00 | NUR ---
KYLE following pt. KYLE spoke with [facility] admission at [facility] and Pt has been accepted pending insurance auth. KYLE faxed updated PT/OT notes, Orders to [facility]. Insurance auth for SNU pending. Will continue to follow.
[2018-09-20] MEDS ORDERED: PANTOPRAZOLE 40 MG TABLET.DR. PO SCH (11:30)
--- NOTE | 2018-09-20 14:32 | NUR ---
KYLE following pt. Insurance has approved SNU and pt will transport via facility arranged w/c van between [id number]. Pt's choice and rights forms singed by pt and copies on chart. Pt's daughter, Estrellita notified of plan and agreeable. Discussed with RN.
[2018-09-20 14:59] VITALS: BP 97/61
--- NOTE | 2018-09-20 16:23 | PDOC ---
PROGRESS NOTES Chief Complaint Chief Complaint hypovoelamia CHF, chronic systolic GERD Perhaps reflux-induced dysmotility as cause of dysphagia. Doubt really has gastroparesis. s/p EGD Hypokalemia in the background of Bumex use Geriatric Full code History of Present Illness History of Present Illness try to DC to SNU today Continue Bumex 2 g - daily Vitals Vitals Vital Signs Date Time Temp Pulse Resp B/P (MAP) Pulse Ox O2 Delivery O2 Flow Rate FiO2 09/20/18 14:59 97.8 60 18 97/61 (73) 97 Room Air 97.8 Physical Exam General: Alert, Oriented X3, Cooperative, No acute distress, Other (weak looking but not in distress) Lungs: Clear Abdomen: Normal bowel sounds, Soft, No tenderness, No hepatosplenomegaly, No masses Extremities: No clubbing, No cyanosis, No edema, Normal pulses, No tenderness/swelling Skin: No rashes, No breakdown, No significant lesion, Other (very dry, senile skin turgor) Labs LABS Laboratory Tests Test 09/20/18 03:05 Sodium Level 140 mmol/L (136-145) Potassium Level 3.7 mmol/L (3.5-5.1) Chloride Level 100 mmol/L (98-107) Carbon Dioxide Level 33 mmol/L (21-32) Anion Gap 7 (6-14) Blood Urea Nitrogen 72 mg/dL (7-20) Creatinine 2.3 mg/dL (0.6-1.0) Estimated GFR (Cockcroft-Gault) 24.4 Glucose Level 101 mg/dL (70-99) Calcium Level 9.9 mg/dL (8.5-10.1) Assessment and Plan Assessmemt and Plan Problems Medical Problems: (1) Acute on chronic renal failure Status: Acute (2) Congestive heart failure Status: Acute (3) Elevated liver function tests Status: Acute (4) Elevated troponin Status: Acute (5) Failure to thrive Status: Acute (6) Hypercalcemia Status: Acute (7) Hyponatremia Status: Acute (8) Leukopenia Status: Acute (9) Severe dehydration Status: Acute Comment Review of Relevant I have reviewed the following items rufino (where applicable) has been applied. Labs Laboratory Tests Test 09/20/18 03:05 Sodium Level 140 mmol/L (136-145) Potassium Level 3.7 mmol/L (3.5-5.1) Chloride Level 100 mmol/L (98-107) Carbon Dioxide Level 33 mmol/L (21-32) Anion Gap 7 (6-14) Blood Urea Nitrogen 72 mg/dL (7-20) Creatinine 2.3 mg/dL (0.6-1.0) Estimated GFR (Cockcroft-Gault) 24.4 Glucose Level 101 mg/dL (70-99) Calcium Level 9.9 mg/dL (8.5-10.1) Laboratory Tests Test 09/20/18 03:05 Sodium Level 140 mmol/L (136-145) Potassium Level 3.7 mmol/L (3.5-5.1) Chloride Level 100 mmol/L (98-107) Carbon Dioxide Level 33 mmol/L (21-32) Anion Gap 7 (6-14) Blood Urea Nitrogen 72 mg/dL (7-20) Creatinine 2.3 mg/dL (0.6-1.0) Estimated GFR (Cockcroft-Gault) 24.4 Glucose Level 101 mg/dL (70-99) Calcium Level 9.9 mg/dL (8.5-10.1) Medications Current Medications Potassium Chloride/Water 100 ml @ 100 mls/hr Q1H IV Last administered on 09/15/18at 16:08; Start 09/15/18 at 16:00; Stop 09/15/18 at 16:59; Status DC Sodium Chloride 500 ml @ 500 mls/hr 1X ONCE IV Last administered on 09/15/18at 16:09; Start 09/15/18 at 16:00; Stop 09/15/18 at 16:59; Status DC Sodium Chloride 1,000 ml @ 125 mls/hr Q8H IV Last administered on 09/16/18at 15:28; Start 09/15/18 at 16:24; Stop 09/16/18 at 16:23; Status DC Potassium Chloride (KCl Oral Soln) 40 meq 1X ONCE PO Last administered on 09/15/18at 18:14; Start 09/15/18 at 16:30; Stop 09/15/18 at 16:31; Status DC Sodium Chloride 1,000 ml @ 1,000 mls/hr 1X ONCE IV ; Start 09/15/18 at 16:30; Stop 09/15/18 at 17:29; Status DC Potassium Chloride (Klor-Con) 40 meq 1X ONCE PO Last administered on 09/15/18 18:15; Start 09/15/18 at 17:30; Stop 09/15/18 at 17:31; Status DC Amiodarone HCl (Cordarone) 200 mg DAILY PO Last administered on 09/20/18 09:00; Start 09/16/18 at 09:00 Aspirin (Children'S Aspirin) 81 mg DAILY PO Last administered on 09/20/18 08:59; Start 09/16/18 at 09:00 Carvedilol (Coreg) 6.25 mg BIDWMEALS PO Last administered on 09/20/18 08:59; Start 09/15/18 at 17:30 Tramadol HCl (Ultram) 50 mg PRN QID PRN PO MILD TO MODERATE PAIN Last administered on 09/20/18 01:18; Start 09/15/18 at 17:30 Potassium Chloride (Klor-Con) 20 meq DAILYWBKFT PO Last administered on 09/17/18 09:52; Start 09/17/18 at 08:00; Stop 09/17/18 at 16:55; Status DC Simvastatin (Zocor) 20 mg HS PO Last administered on 09/19/18 21:06; Start 09/15/18 at 21:00 Multivitamins (Thera M Plus) 1 tab DAILY PO Last administered on 09/20/18 08:59; Start 09/16/18 at 09:00 Bumetanide (Bumex) 2 mg BID PO Last administered on 09/19/18 08:33; Start 09/17/18 at 09:00; Stop 09/19/18 at 10:31; Status DC Potassium Chloride (Klor-Con) 20 meq TID PO Last administered on 09/16/18 20:49; Start 09/16/18 at 06:00; Stop 09/16/18 at 21:01; Status DC Polyethylene Glycol (miraLAX PACKET) 17 gm DAILY PO Last administered on 09/17/18 09:51; Start 09/16/18 at 12:00; Stop 09/18/18 at 11:47; Status DC Midazolam HCl (Versed) 2 mg PRN 1X PRN IV PRIOR TO PROCEDURE; Start 09/16/18 at 13:00; Stop 09/17/18 at 12:59; Status DC Fentanyl Citrate (Fentanyl 2ml Vial) 25 mcg PRN Q5MIN PRN IV X 2 DOSES FOR PAIN; Start 09/16/18 at 13:00; Stop 09/17/18 at 12:59; Status DC Fentanyl Citrate (Fentanyl 2ml Vial) 50 mcg PRN Q5MIN PRN IV X 2 DOSES FOR PAIN; Start 09/16/18 at 13:00; Stop 09/16/18 at 18:00; Status DC Sodium Chloride 1,000 ml @ 125 mls/hr Q8H IV ; Start 09/16/18 at 12:57; Stop 09/17/18 at 00:56; Status DC Lidocaine HCl (Xylocaine-Mpf 1% 2ml Vial) 2 ml 1X PRN PRN ID IV START; Start 09/16/18 at 13:00; Stop 09/17/18 at 12:59; Status DC Propofol 20 ml @ As Directed STK-MED ONCE IV ; Start 09/16/18 at 14:03; Stop 09/16/18 at 14:04; Status DC Lidocaine HCl (Lidocaine Pf 2% Vial) 5 ml STK-MED ONCE .ROUTE ; Start 09/16/18 at 14:03; Stop 09/16/18 at 14:04; Status DC Ringer's Solution 1,000 ml @ 50 mls/hr Q20H IV ; Start 09/16/18 at 14:48; Stop 09/17/18 at 02:47; Status DC Potassium Chloride (Klor-Con) 40 meq 1X ONCE PO Last administered on 09/17/18at 12:00; Start 09/17/18 at 12:00; Stop 09/17/18 at 12:01; Status DC Potassium Chloride (Klor-Con) 20 meq 1X ONCE PO Last administered on 09/17/18at 15:51; Start 09/17/18 at 14:00; Stop 09/17/18 at 14:01; Status DC Potassium Chloride (Klor-Con) 40 meq BID PO Last administered on 09/18/18at 08:20; Start 09/17/18 at 21:00; Stop 09/18/18 at 09:10; Status DC Polyethylene Glycol (miraLAX PACKET) 17 gm PRN DAILY PRN PO constipation; Start 09/18/18 at 12:00 Bumetanide (Bumex) 2 mg DAILY PO Last administered on 09/20/18at 08:59; Start 09/20/18 at 09:00 Pantoprazole Sodium (Protonix) 40 mg DAILYAC PO Last administered on 09/20/18at 11:19; Start 09/20/18 at 11:30 Active Scripts Active Bumetanide 1 Mg Tablet 2 Mg PO DAILY Potassium Chloride 20 Meq Tablet.er 40 Meq PO DAILY Protonix (Pantoprazole Sodium) 20 Mg Tablet.dr 40 Mg PO DAILY Tramadol Hcl 50 Mg Tablet 50 Mg PO PRN Q6-8HRS PRN 6 Days Amiodarone Hcl 200 Mg Tablet 200 Mg PO DAILY 30 Days Reported Potassium Chloride 20 Meq Tablet.er 20 Meq PO DAILY Carvedilol (Carvedilol) 6.25 Mg Tablet 1 Tab PO BID Multivitamins (Multivitamin) 1 Each Tablet 1 Each PO Simvastatin 20 Mg Tablet 20 Mg PO HS Aspirin 81 Mg Tab.chew 81 Mg PO Vitals/I & O Vital Sign - Last 24 Hours 09/19/18 09/19/18 09/19/18 09/19/18 17:15 19:00 20:03 22:54 Temp 97.7 98.4 97.7 98.4 Pulse 64 64 59 Resp 18 18 B/P (MAP) 112/70 110/72 (85) 91/53 (66) Pulse Ox 98 95 O2 Delivery Room Air Room Air Room Air 09/20/18 09/20/18 09/20/18 09/20/18 01:18 02:32 03:00 07:00 Temp 98.8 97.9 98.8 97.9 Pulse 80 82 Resp 16 18 18 18 B/P (MAP) 104/53 (70) 115/68 (84) Pulse Ox 95 95 98 98 O2 Delivery Room Air Room Air Room Air Room Air 09/20/18 09/20/18 09/20/18 09/20/18 08:00 08:59 09:00 11:00 Temp 97.7 97.7 Pulse 82 82 61 Resp 18 B/P (MAP) 115/68 115/68 99/54 (69) Pulse Ox 96 O2 Delivery Room Air Room Air 09/20/18 14:59 Temp 97.8 97.8 Pulse 60 Resp 18 B/P (MAP) 97/61 (73) Pulse Ox 97 O2 Delivery Room Air Intake and Output 09/19/18 09/19/18 09/20/18 15:00 23:00 07:00 Intake Total 600 ml 300 ml 30 ml Balance 600 ml 300 ml 30 ml Nutrition Consultation Dietary Evaluation: Recommendations by RD: Increase Calorie Intake, Protein supplementation Comments: strawberry ensure bid when able Expected Outcomes/Goals: to meet > 75% est nutr needs Interpretation of weight loss: >7.5% in 3 months Malnutrition Findings: Food and Nutrition Intake (Mod: <75% est energy req 7days Body Fat Depletion (Non Severe: Mild Depletion Weight Status: Underweight SOFIA GARZA MD September 20, 2018 16:23
--- NOTE | 2018-09-20 17:24 | NUR ---
Patient d/c to [facility] in [place]. Transportation set up by this SN[facility]. This RN gave report to Dimple FERRARO with all questions answered and call back number given. Prescriptions faxed to [facility] with originals in folder. IV discontinued. Patient alert and stable. All belongings with patient's daughter. Daughter present at time of dismissal.
== END 2018-09-20 16:45 | DRG 682 ==
LOC: ER 14:26 → 6 SOUTH 15:51 → 5 NORTH 09-19 06:09
PROVIDERS: ADMIT Internal Medicine; ATTEND Family Medicine
PROC: 0D768ZZ Dilation of Stomach, Via Natural or Artificial Opening Endoscopic (ICD-10-PCS; principal; 2018-09-16 15:30)
DX: N17.0 Acute kidney failure with tubular necrosis (principal); I50.33 Acute on chronic diastolic (congestive) heart failure; I13.0 Hypertensive heart and chronic kidney disease with heart failure and stage 1 through stage 4 chronic kidney disease, or unspecified chronic kidney disease; I42.0 Dilated cardiomyopathy; E87.1 Hypo-osmolality and hyponatremia; E87.3 Alkalosis; E86.0 Dehydration; K21.0 Gastro-esophageal reflux disease with esophagitis; N18.9 Chronic kidney disease, unspecified; M19.90 Unspecified osteoarthritis, unspecified site; E87.6 Hypokalemia; D72.819 Decreased white blood cell count, unspecified; E78.00 Pure hypercholesterolemia, unspecified; E83.52 Hypercalcemia; H40.9 Unspecified glaucoma; I07.1 Rheumatic tricuspid insufficiency; I27.20 Pulmonary hypertension, unspecified; I44.7 Left bundle-branch block, unspecified; J45.909 Unspecified asthma, uncomplicated; M81.0 Age-related osteoporosis without current pathological fracture; R13.10 Dysphagia, unspecified; R62.7 Adult failure to thrive; Z82.49 Family history of ischemic heart disease and other diseases of the circulatory system; Z91.81 History of falling; Z90.710 Acquired absence of both cervix and uterus; K31.84 Gastroparesis
CPT/HCPCS: 36415; 43235; 71045; 80048; 80053; 80076; 81001; 82550; 83605; 83690; 83735; 83880; 84132; 84484; 85014; 85018; 85025; 85610; 93005; 96365; J2001; J2704; J3480; J7030; J7040; 97110; 97116; 97535; 99285-25

== ENCOUNTER 2019-06-20 06:56 | Outpatient (CLI) | payer MEDICARE ==
[~2019-06-20] VITALS: Ht 152.4 cm; Wt 54.4 kg
[2019-06-20] VITALS (8 sets, daily range): BP systolic 102–126; BP diastolic 54–73
[~2019-06-20 06:56] MED LIST changes: +BUME0.5T2 PO; +BUME1TAB3 PO; +PANT20TA2 PO; +POLY17PO28 PO; +POTA20TA4 PO; -POTA20TA82 PO; +SENN-87 PO; +SIMV20TA18 PO; -SIMV20TA3 PO
[2019-06-20] MEDS ORDERED: HYDR-2867 PO (07:12)
[2019-06-20] MEDS ORDERED: ERGO2000 PO (07:12)
[2019-06-20] MEDS ORDERED: BUME2TAB3 PO (07:12)
[2019-06-20] MEDS ORDERED: DOBUTAMINE (07:13)
[2019-06-20 07:50] LABS: HEMATOCRIT 40.7 % (36.0-47.0); HEMOGLOBIN 13.1 g/dL (12.0-15.5); RED BLOOD COUNT 4.67 x10^6/uL (3.50-5.40); RED CELL DISTRIBUTION WIDTH 16.5 % (11.5-14.5); WHITE BLOOD COUNT 3.3 x10^3/uL (4.0-11.0)
[2019-06-20] MEDS ORDERED: fentaNYL PF VIAL 100 MCG/2 ML VIAL ONE (07:52)
[2019-06-20] MEDS ORDERED: MIDAZOLAM HCL/PF 2 MG/2 ML VIAL. ONE (07:52)
--- NOTE | 2019-06-20 07:52 | EKG ---
[facility] [address] [place] [address] Test Date: 2019-06-20 Test Time: 07:34:24 Pat Name: DARRYL IBRAHIM Department: Room: Gender: F Family Support Worker: JENNA : 1935 Requested By: MARIELY RODRÍGUEZ Order Number: [id number] Reading MD: Measurements Intervals [place] Rate: 77 P: 210 NC: 128 QRS: 115 QRSD: 104 T: 93 QT: 464 QTc: 527 Interpretive Statements SINUS RHYTHM CONSIDER LEFT VENTRICULAR HYPERTROPHY ST ABNORMALITY, POSSIBLE ANTERIOR SUBENDOCARDIAL INJURY LATERAL SUBENDOCARDIAL INJURY INFEROLATERAL SUBENDOCARDIAL INJURY PROLONGED QT ABNORMAL ECG RI6.02 Compared to ECG 11/25/2018 15:40:37 ST (T wave) deviation now present Prolonged QT interval now present Ventricular-paced complex(es) or rhythm no longer present
[2019-06-20 07:56] LABS: CALCIUM 10.5 mg/dL (8.5-10.1); CREATININE 1.9 mg/dL (0.6-1.0); GFR 30.4
[2019-06-20 07:59] LABS: PROTHROMBIN TIME PATIENT 14.4 SEC (11.7-14.0)
[2019-06-20] MEDS ORDERED: MIDAZOLAM HCL/PF 2 MG/2 ML VIAL. IV ONE (08:00)
[2019-06-20] MEDS ORDERED: BACITRACIN 50,000 UNIT in IV NORMAL SALINE 250ML 250 ML IRR ONE (08:00)
[2019-06-20] MEDS ORDERED: LIDOCAINE 2%/EPI 1:100,000 20 ML VIAL. IJ ONE (08:00)
[2019-06-20] MEDS ORDERED: ceFAZolin SODIUM IV Push 1 GM VIAL. IVP ONE ×2 (08:00→08:01)
[2019-06-20] MEDS ORDERED: fentaNYL PF VIAL 100 MCG/2 ML VIAL IV ONE (08:00)
--- NOTE | 2019-06-20 09:14 | PDOC ---
MODERATE SEDATION ASSESSMENT RISKS/ALTERNATIVES Risks/Alternatives Risks and alternatives of this type of sedation and procedure discussed with: RISK/ALTERNATIVES: Patient H & P ON CHART H & P H & P on chart and reviewed for co-morbid conditions and appropriate labs. H&P ON CHART: Yes STATUS PREG STATUS ASSESSED: N/A MEDS/ALLERGIES REVIEWED Meds/Allergies Reviewed Medications and Allergies including time and route of recently administered narcotics and sedatives. MEDS/ALLERGIES REVIEWED: Yes ASA RATING ASA RATING: III AIRWAY ASSESSMENT Airway Assessment Airway patency, oral function limitations, presence of caps, crowns, dentures, partials, and ability to extend neck assessed. AIRWAY ASSESSMENT: Yes MALLAMPATI SCORE MALLAMPATI SCORE: II PRE-SEDATION ASSESSMENT PRE-SEDATION ASSESSMENT: Yes MARIELY RODRÍGUEZ MD Jun 20, 2019 09:14
[2019-06-20] MEDS ORDERED: NO ANTICOAGULANT THERAPY. MC PRN (09:15)
--- NOTE | 2019-06-20 09:25 | CARD ---
MR#: [id number] Date of Study: 06/20/2019 Ordering Physician: MARIEYL DORMAN, Referring Physician: MARIELY DORMAN, Tech: APPROVED REPORT EXAM Successful [employer] biventricular ICD/ABSORPTION PLANT OPERATOR HELPER-D generator change FL TIME: 0.1 MINS DOSE: 0.25 GY/CM2 MODERATE SEDATION: 45 MINUTES INDICATIONS Chronic systolic heart failure, nonischemic cardiomyopathy, ventricular tachycardia s/p biventricular ICD/ABSOR[employer]ION PLANT OPERATOR HELPER-D implantation presenting with battery depletion IMPLANTED DEVICES After explaining the risks, benefits and alternative options, informed consent was obtained from karthik ent. Patient was brought to the cardiac Rug Dry Room Attendant and her left chest and shoulder were prepped and jose alejandro ped in the usual fashion. 20 mL of 2% lidocaine was infiltrated into the skin and subcutaneous tissue s for local anesthesia. An incision was made over the previous scar and using blunt dissection and ca utery, the pocket was opened, capsule exposed and opened and the previously placed generator removed from the pocket. The leads were detached, interrogated and found to be functioning well and reattache d to a new [employer] biventricular ICD/ABSORPTION PLANT OPERATOR HELPER-D generator model 3357-40C, serial number [id number]. This was placed in the pocket that was subsequently closed in 3 layers. Hemostasis was secured. Ther e were no immediate complications. CONCLUSION Successful [employer] biventricular ICD/ABSORPTION PLANT OPERATOR HELPER-D generator change for battery depletion. Signed by : Mariely Dorman, Electronically Approved : 06/20/2019 09:25:34
--- NOTE | 2019-06-20 11:22 | NUR ---
pt discharged to home with family. Pt ambulated and tolerated PO. Instructions reviewed with family. DIVINE PICC line remains intact with home infusion
== END 2019-06-20 11:23 | disposition home or self-care (01) ==
LOC: CCL 06:56
PROVIDERS: ATTEND Internal Medicine Cardiovascular Disease
DX: Z45.02 Encounter for adjustment and management of automatic implantable cardiac defibrillator (principal); I50.22 Chronic systolic (congestive) heart failure; Z79.899 Other long term (current) drug therapy; Z79.01 Long term (current) use of anticoagulants
CPT/HCPCS: 33264; 36415; 80048; 85027; 85610; 93005; 99152; 99153; C1882; J0690; J2250; J3010; J3490; J7050; J7030